=== PATIENT | female | born 1975 | race Caucasian/White ===

== ENCOUNTER 2023-02-18 22:49 | Observation (INO) | payer OTHER, SELFPAY ==
[2023-02-18 22:58] VITALS: BP 145/86; PULSE 83; RESP 16; TEMP 36.7; O2SAT 99; BMI 29.0
[2023-02-18 22:59] VITALS: BP 145/86; PULSE 88; RESP 17
--- NOTE | 2023-02-18 23:17 | ED_ITS ---
HPI - Chest Pain General Chief Complaint: Chest Pain Stated Complaint: CHEST PAIN Time Seen by Provider: 02/18/23 23:11 History of Present Illness HPI narrative: recurrent chest pain, burning pain that does not feel like heart burn, since thursday. Thursday she thought she was having a heart attack but did not seek care. Today recurrent episodes of chest pain alone with dyspnea and nausea. No fever or abdominal pain MD complaint: Reports chest pain Risk Factors Coronary artery disease risk factors: smoking history Related Data Home Medications Medication Instructions Recorded Confirmed etodolac 400 mg tablet 400 mg PO DAILY 02/19/23 02/19/23 milnacipran 25 mg tablet (Savella) 25 mg PO BID 02/19/23 02/19/23 naltrexone 50 mg tablet 4.5 mg PO DAILY 02/19/23 02/19/23 nifedipine 60 mg tablet,extended 60 mg PO DAILY 02/19/23 02/19/23 release Allergies Allergy/AdvReac Type Severity Reaction Status Date / Time codeine Allergy tremors Verified 02/18/23 23:02 Review of Systems ROS Status of ROS 10 or more systems reviewed and unremarkable except as noted in history and below Cardiovascular Reports: chest pain Respiratory Reports: shortness of breath PFSH PFSH Social History Smoking status: Current every day smoker Exam Constitutional Vital Signs, click to edit/add: Last Vital Signs Temp 98.1 F 02/18/23 22:58 Pulse 85 02/19/23 02:00 Resp 22 02/19/23 02:00 BP 109/80 H 02/18/23 23:51 Pulse Ox 99 02/19/23 02:00 Common normals: average body habitus, oriented x3, no limitations and healthy appearing [facility] Common normals: normocephalic and head/scalp atraumatic Eye Common normals: PERRL, EOMs intact bilaterally and conjunctivae normal Respiratory Common normals: normal respiratory effort, no retractions, no use of accessory muscles and clear to auscultation bilaterally Cardio Common normals: regular rate, regular rhythm, S1 normal heart sound and S2 normal heart sound GI Common normals: Normal to inspection, nondistended, normoactive bowel sounds present, soft to palpation and non-tender Extremity Common normals: normal to inspection and full ROM Neuro Common normals: oriented x3, CN's II-XII intact bilaterally, moves all extremities and no focal motor deficits Psych Appearance: grossly normal Course Vital Signs Vital signs: Vital Signs Temperature 98.1 F 02/18/23 22:58 Pulse Rate 83 02/18/23 22:58 Respiratory Rate 16 02/18/23 22:58 Blood Pressure 145/86 H 02/18/23 22:58 Pulse Oximetry 99 02/18/23 22:58 Temperature 98.1 F 02/18/23 22:58 Pulse Rate 85 02/19/23 02:00 Respiratory Rate 22 02/19/23 02:00 Blood Pressure 109/80 H 02/18/23 23:51 Pulse Oximetry 99 02/19/23 02:00 MDM - Chest Pain MDM Narrative Medical decision making narrative: patient presents with recurrent chest pain associated with dyspnea and nausea for past 3 days. Daily smoker. No fever or cough. Workup in the department includes neg troponin, normal cxray and EKG without acute changes. Discussed with the hospitalist and she would like a 2nd troponin before the patient is ac cepted for admission Lab Data Labs: Lab Results 02/18/23 02/19/23 Range/Units 23:33 01:52 WBC 9.6 (4.0-11.0) 10^3/uL RBC 4.11 L (4.20-5.40) 10^6/uL Hgb 13.3 (12.0-16.0) g/dL Hct 39.1 (36.0-48.0) % MCV 95.1 (81.0-99.0) fL MCH 32.4 (26.7-34.0) pg MCHC 34.0 (29.9-35.2) g/dL RDW 11.9 (11.0-15.0) % Plt Count 209 (150-450) 10^3/uL MPV 10.8 (9.5-13.5) fL Neut % (Auto) 45.2 (43.0-75.0) % Lymph % (Auto) 43.8 (20.5-60.0) % [place] % (Auto) 8.1 (1.7-12.0) % Eos % (Auto) 1.9 (0.9-7.0) % Baso % (Auto) 0.5 (0.2-2.0) % Neut # (Auto) 4.3 (1.4-6.5) 10^3/uL Lymph # (Auto) 4.2 H (1.2-3.8) 10^3/uL [place] # (Auto) 0.8 (0.3-0.8) 10^3/uL Eos # (Auto) 0.2 (0.0-0.7) 10^3/uL Baso # (Auto) 0.1 (0.0-0.1) 10^3/uL Abs Immat Gran (auto) 0.05 H (0.00-0.03) 10^3/uL Imm/Tot Granulo (auto) 0.5 (0.0-0.5) % D-Dimer <0.19 (<=0.59) mg/L FEU Sodium 142 (136-145) mmol/L Potassium 3.3 L (3.5-5.1) mmol/L Chloride 108 H (98-107) mmol/L Carbon Dioxide 26.2 (21.0-32.0) mmol/L Anion Gap 11.1 BUN 11.0 (7.0-18.0) mg/dL Creatinine 0.98 (0.55-1.02) mg/dL Est GFR ( Amer) >60 (>=60) Est GFR (Non-Af Amer) >60 (>=60) BUN/Creatinine Ratio 11.2 Glucose 93 (74-106) mg/dL Calcium 8.7 (8.5-10.1) mg/dL Total Bilirubin 0.2 (0.2-1.0) mg/dL AST 24 (15-37) U/L ALT 39 (14-59) U/L Alkaline Phosphatase 75 (46-116) U/L Troponin I High Sens <4.0 L <4.0 L (4.0-51.3) pg/mL NT-Pro-B Natriuret Pep 62.0 (<=450.0) pg/mL Total Protein 6.5 (6.4-8.2) g/dL Albumin 3.6 (3.4-5.0) g/dL Globulin 2.9 g/dL Albumin/Globulin Ratio 1.2 Lipase 151.0 (73.0-393.0) U/L Discharge Plan Discharge Chief Complaint: Chest Pain Clinical Impression: Chest pain Patient Disposition: Admitted as Observation
--- NOTE | 2023-02-18 23:20 | XR_ITS ---
The [address] [address] Patient Name: LISBETH RAO MRN: [id number] date: 1975 Sex: F Assigned Patient Location: ER Current Patient Location: ER Accession/Order Number: [id number] Exam Date: 02/18/2023 23:40 Report Date: 02/18/2023 23:55 At the request of: ADIEL BOWER Procedure: XR chest 1V EXAMINATION:XR chest 1V INDICATION:chest pain COMPARISON:05/22/2017 TECHNIQUE:A single frontal view of the chest is submitted. FINDINGS: The cardiomediastinal silhouette is not enlarged. The pulmonary vascularity is within normal limits. The lungs are clear based on chest radiography. There is no costophrenic angle blunting. XR/XR chest 1V IMPRESSION: Unremarkable plain film examination of the chest. Electronically authenticated by: BRITTANEY ESCOTO Date: 02/18/2023 23:55
--- NOTE | 2023-02-18 23:20 | ECG_ITS ---
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
[2023-02-18 23:47] LABS: Basophils Absolute Auto 0.1 10^3/uL (0.0-0.1); Basophils Percent Auto 0.5 % (0.2-2.0); Eosinophils Absolute Auto 0.2 10^3/uL (0.0-0.7); Eosinophils Percent Auto 1.9 % (0.9-7.0); Hematocrit 39.1 % (36.0-48.0); Hemoglobin 13.3 g/dL (12.0-16.0); Immature Granulocytes Abs Auto 0.05 10^3/uL (0.00-0.03); Immature Granulocytes Pct Auto 0.5 % (0.0-0.5); Lymphocytes Absolute Auto 4.2 10^3/uL (1.2-3.8); Lymphocytes Percent Auto 43.8 % (20.5-60.0); Mean Corpuscular Hemoglobin 32.4 pg (26.7-34.0); Mean Corpuscular Volume 95.1 fL (81.0-99.0); Mean Platelet Volume 10.8 fL (9.5-13.5); Monocytes Absolute Auto 0.8 10^3/uL (0.3-0.8); Monocytes Percent Auto 8.1 % (1.7-12.0); Neutrophils Absolute Auto 4.3 10^3/uL (1.4-6.5); Neutrophils Percent Auto 45.2 % (43.0-75.0); Platelet Count 209 10^3/uL (150-450); Red Blood Count 4.11 10^6/uL (4.20-5.40); Red Cell Distribution Width 11.9 % (11.0-15.0); White Blood Count 9.6 10^3/uL (4.0-11.0)
[2023-02-18 23:51] VITALS: BP 109/80; PULSE 80; PULSE 92; RESP 17; RESP 18; RESP 23; TEMP 36.2; O2SAT 100
--- NOTE | 2023-02-18 23:59 | PC.NURSE ---
0: patient states since Thursday she has had intermittent chest pain that feels like pressure across her entire upper chest and radiates into her right and left upper extremities. states the pain comes and goes, when it starts it is severe and she becomes short of breath with pain. states she has had a few episodes of nausea with the pain but is not nauseous at this time. states on Thursday the severe pain lasted 4hours and she thought she was having a heart attack states she was not seen in any ER or by her PCP for this and states eventually the pain seemed to ease up on its own. denies any cardiac history, denies any similar episodes in past.
[2023-02-19] VITALS (24 sets, daily range): BP systolic 114–157; BP diastolic 72–93; PULSE 61–99; RESP 7–132; O2SAT 96–99; BMI 29.0
[2023-02-19 00:03] LABS: D Dimer <0.19 mg/L FEU (<=0.59)
[2023-02-19 00:12] LABS: Alanine Aminotransferase 39 U/L (14-59); Albumin Globulin Ratio 1.2; Albumin Level 3.6 g/dL (3.4-5.0); Alkaline Phosphatase 75 U/L (46-116); Anion Gap 11.1; Aspartate Amino Transferase 24 U/L (15-37); BUN Creatinine Ratio 11.2; Bilirubin Total 0.2 mg/dL (0.2-1.0); Calcium 8.7 mg/dL (8.5-10.1); Carbon Dioxide 26.2 mmol/L (21.0-32.0); Chloride 108 mmol/L (98-107); Estimated GFR (African America >60 (>=60); Estimated GFR (Non-African Ame >60 (>=60); Globulin 2.9 g/dL; Glucose 93 mg/dL (74-106); Potassium 3.3 mmol/L (3.5-5.1); Sodium 142 mmol/L (136-145); Total Protein 6.5 g/dL (6.4-8.2); Troponin I High Sensitivity <4.0 pg/mL (4.0-51.3)
[2023-02-19] MEDS: POTASSIUM CHLORIDE 10 MEQ ER TABLET 40 MEQ PO (00:45)
[2023-02-19 02:14] LABS: Troponin I High Sensitivity <4.0 pg/mL (4.0-51.3)
--- NOTE | 2023-02-19 04:03 | W.PM.TELEPN ---
Progress Note: Subjective Subjective Interval history: The patient is a 47-year-old female who was in her usual state of health until several days ago when she started developing shortness of breath and dizziness. She had chest pain on Thursday which was 9 out of 10 in intensity and lasted approximately 4 hours. She laid down. She took her hydroxyzine which she takes for anxiety and fell asleep. She felt better when she woke up. Over the next few days, her chest felt more sore. She has not had a stress test in over 10 years. She denies any new medications or any sick contacts. She presented to the ED and had 2 negative cardiac enzymes. She is being admitted for chest pain protocol. Exam Narrative Exam Narrative: General : Alert and oriented x3 HEENT : Extraocular movements intact, pupils equal round and reactive to light and accommodation Neck: Supple, no JVD Chest: Clear to auscultation bilaterally, no wheezes Heart: Regular rate and rhythm, S1 and S2 heard, musculoskeletal tenderness Abdomen: Soft nontender nondistended. Extremities: No clubbing cyanosis or edema Neurologically: Moving all 4 extremities Skin: No rashes Constitutional Vital Signs, click to edit/add: Last Vital Signs Temp 97.2 F L 02/18/23 23:51 Pulse 80 02/19/23 03:14 Resp 18 02/19/23 02:36 BP 141/90 H 02/19/23 02:36 Pulse Ox 99 02/19/23 02:00 O2 Del Method Room Air 02/19/23 03:00 Progress Note: Objective Labs Labs: Short CBC 02/18/23 Range/Units 23:33 WBC 9.6 (4.0-11.0) 10^3/uL Hgb 13.3 (12.0-16.0) g/dL Hct 39.1 (36.0-48.0) % Plt Count 209 (150-450) 10^3/uL BMP 02/18/23 23:33 Sodium 142 Potassium 3.3 L Chloride 108 H Carbon Dioxide 26.2 BUN 11.0 Creatinine 0.98 Glucose 93 Calcium 8.7 Liver Function 02/18/23 Range/Units 23:33 Total Bilirubin 0.2 (0.2-1.0) mg/dL AST 24 (15-37) U/L ALT 39 (14-59) U/L Alkaline Phosphatase 75 (46-116) U/L Albumin 3.6 (3.4-5.0) g/dL Progress Note: A&P Assessment and Plan (1) Chest pain: Assessment and Plan: The patient is a 47-year-old female, presenting with atypical chest pain. Atypical chest pain -Provide supportive care -2 cardiac enzymes negative -Start aspirin -Nitroglycerin as needed -Tums and Maalox as needed -Monitor on telemetry -Hold nifedipine for stress test - NPO, day physician to order stress test Nicotine dependence -Provide nicotine patch DVT Prophylaxis -Lovenox, SCDs Medication review -Medication reconciliation form completed Goals of care -Full code Communications -Discussed with the emergency room physician -Discussed with the bedside nurse -Patient updated of plan of care, all questions answered to their satisfaction Disposition -Home when medically stable Telemedicine clause -As the provider of this telehealth evaluation, requested by the patient's evaluating physician, I attest that I introduced myself to the patient, provided my credentials and determined that telemedicine via a real-time, two-way interactive audio and video platform is an appropriate and effective means of providing this service. -I reviewed the patient's chart and had a discussion with the member of the patient's treatment team. -The patient and I mutually agreed with continuation of this evaluation via telemedicine. The patient consented for the telemedicine evaluation. -This virtual encounter was taken place from [place], [place]. The encounter was approximately 35 minutes. The nurse was present during the entire time of the encounter and was able to remove the stethoscope and appropriate directions. The patient was evaluated at [facility] Telemedicine Attestation Telemedicine Attestation I conducted this encounter from [facility] via secure live, [id number] video conference with the patient, located at [facility] with nurse. Prior to the interview, the risks and benefits of telemedicine were discussed with the patient and verbal consent was obtained.
[2023-02-19 05:22] LABS: Basophils Absolute Auto 0.1 10^3/uL (0.0-0.1); Basophils Percent Auto 0.8 % (0.2-2.0); Eosinophils Absolute Auto 0.2 10^3/uL (0.0-0.7); Eosinophils Percent Auto 2.2 % (0.9-7.0); Hematocrit 38.2 % (36.0-48.0); Hemoglobin 12.5 g/dL (12.0-16.0); Immature Granulocytes Abs Auto 0.04 10^3/uL (0.00-0.03); Immature Granulocytes Pct Auto 0.5 % (0.0-0.5); Lymphocytes Absolute Auto 4.1 10^3/uL (1.2-3.8); Lymphocytes Percent Auto 52.9 % (20.5-60.0); Mean Corpuscular HGB Conc 32.7 g/dL (29.9-35.2); Mean Corpuscular Hemoglobin 31.6 pg (26.7-34.0); Mean Corpuscular Volume 96.5 fL (81.0-99.0); Mean Platelet Volume 11.3 fL (9.5-13.5); Monocytes Absolute Auto 0.6 10^3/uL (0.3-0.8); Monocytes Percent Auto 7.8 % (1.7-12.0); Neutrophils Absolute Auto 2.7 10^3/uL (1.4-6.5); Neutrophils Percent Auto 35.8 % (43.0-75.0); Platelet Count 205 10^3/uL (150-450); Red Blood Count 3.96 10^6/uL (4.20-5.40); Red Cell Distribution Width 11.9 % (11.0-15.0); White Blood Count 7.7 10^3/uL (4.0-11.0)
[2023-02-19 05:39] LABS: Anion Gap 11.8; BUN Creatinine Ratio 13.4; Calcium 8.7 mg/dL (8.5-10.1); Carbon Dioxide 26.9 mmol/L (21.0-32.0); Chloride 108 mmol/L (98-107); Estimated GFR (African America >60 (>=60); Estimated GFR (Non-African Ame >60 (>=60); Glucose 115 mg/dL (74-106); Magnesium 2.1 mg/dL (1.8-2.4); Potassium 3.7 mmol/L (3.5-5.1); Sodium 143 mmol/L (136-145)
[2023-02-19 05:46] LABS: Chol HDL Ratio 5.4; Cholesterol 177 mg/dL (<=200); HDL Cholesterol 33 mg/dL (40-60); Triglycerides 156 mg/dL (<=150); VLDL CHOLESTEROL 31.2 mg/dL
--- NOTE | 2023-02-19 08:57 | OP_ITS ---
CARDIAC STRESS TEST ? Requesting Physician:? Procedure Date:? 02/19/23 ? ? PROCEDURE: This is a Lexiscan stress test. ? REASON FOR STRESS TEST:? To evaluate a patient with chest pain. ? CARDIAC HISTORY:? This is a 47-year-old with no personal history of coronary disease.? She has a strong family history with father having coronary artery bypass grafting at the age of 50. ? PRIMARY RISK FACTORS:? Include essential hypertension. ? RESTING 12 LEAD ELECTROCARDIOGRAM:? Reveals sinus rhythm with a ventricular rate of 65 beats per minute.? The ID interval, QRS interval and QT interval were all within normal limits.? There are no pathologic Q-waves.? There is slight intraventricular conduction delay with non-specific ST-T wave changes. ? STRESS TEST: A.? Protocol:? Lexiscan protocol was followed. B.? Exercise capacity is not applicable for this procedure. C.? Heart rate and blood pressure response:? The heart rate increased with a decrease in blood pressure, which is appropriate for Lexiscan infusion. D.? EKG:? There were no ST-T wave changes during infusion. E.? Patient response:? The patient denied chest pain during infusion. ? IMPRESSION:? There was no objective evidence suspicious for myocardial ischemia during infusion.? Cardiolite was injected with Cardiolite images and interpretation pending. [facility]
--- NOTE | 2023-02-19 08:59 | CA_ITS ---
Patient: LISBETH RAO Exam Date: 02/19/2023 : 1975 Gender:F Ordering : DR DEENA LAGUNAS . Admission #: [id number] Family : Order #: [id number] CLICK HERE TO VIEW EXAM ECHOCARDIOGRAM REPORT PROCEDURE: CA ECHO DOPPLER COMPLETE INDICATIONS: chest pain COMPARISON: None. DESCRIPTION: COMPLETE ECHOCARDIOGRAM Real-time transthoracic echocardiography with 2D, M-mode, spectral and color flow Doppler performed. QUALITY: Technical quality was good. LEFT VENTRICLE: Normal chamber size. Borderline left ventricular hypertrophy. Global left ventricular systolic function is normal. LV EF: Calculated left ventricular ejection fraction is 58% DIASTOLIC: Normal diastolic function. ATRIAL SEPTUM: Lipomatous hypertrophy of the septum is noted. Intact septum by color Doppler interrogation. LEFT ATRIUM: Normal chamber size. RIGHT ATRIUM: Normal chamber size. RIGHT VENTRICLE: Normal chamber size. Normal right ventricular systolic function. TRICUSPID VALVE: Normal mobility and thickness. No stenosis with trivial regurgitation. No evidence of pulmonary hypertension. RVSP 24 mmHg MITRAL VALVE: Normal mobility and thickness. No evidence of mitral valve stenosis. There is no mitral annular calcification. Trivial mitral regurgitation. AORTIC VALVE: Normal trileaflet appearance. No visible sclerosis. Normal leaflet mobility. No evidence of aortic valve stenosis. No aortic regurgitation. AORTIC ROOT: Normal diameter and appearance. PULMONIC VALVE: Normal thickness and mobility. No stenosis. No regurgitation. PERICARDIUM: No evidence of pericardial effusion. IVC: Collapses with inspirations. Normal size. PLEURA: CONCLUSION: 1. Normal left ventricular systolic function. LVEF is estimated at 55 to 60%. 2. Normal right ventricular systolic function and size. 3. Normal diastolic function. 4. No significant valvular dysfunction. 5. Normal right-sided pressures. 6. No pericardial effusion. Adult Echocardiography Procedure Report Left Ventricle LVEDD (3.7 - 5.6 cm): 4.55 cm LVESD (2.2 - 4.0 cm): 3.04 cm LVIVS thickness (0.6 - 1.2 cm): 1.02 cm LVPW thickness (0.5 - 1.0 cm): 0.89 cm e': 0.12 m/s E - e': 5.09 LVOT Max Gradient: 1.99 mm[Hg] LVOT Area (cm2): 0.71 m/s Peak Velocity (LVOT): 0.71 m/s Mean Velocity (LVOT): 0.53 m/s LVOT Diameter 2.15 cm Left Ventricular Ejection Fraction: 58.20 % Left Atrium LA Volume Index (2D A2C): 18.15 ml/m2 Left Atrium Systolic Dimension: 2.82 cm Mitral Valve MV E to A Ratio: 1.23 Mitral Valve A-Wave Peak Velocity: 0.49 m/s Mitral Valve E-Wave Peak Velocity: 0.60 m/s Right Ventricle RV Internal Diastolic Dimension: 2.39 cm Aorta AO Root Diam: 3.12 cm Ascending Ao Diam: 2.59 cm Aortic Valve AoV Area (Peak Isaiah): 2.82 cm2, 2.82 cm2 AoV Area (VTI): 2.38 cm2, 2.38 cm2 Peak Velocity(Antegrade Flow): 0.91 m/s Peak Gradient(Antegrade Flow): 3.32 mm[Hg] Mean Velocity(Antegrade Flow): 0.65 m/s Mean Gradient(Antegrade Flow): 1.90 mm[Hg] Velocity Time Integral: 23.30 cm Tricuspid Valve Peak Velocity (Regurgitant Flow): 2.30 m/s Pulmonic Valve Mean Gradient: 1.27 mm[Hg], 0.94 mm[Hg] Mean Velocity: 0.53 m/s, 0.46 m/s Peak Velocity: 0.68 m/s Peak Gradient: 2.14 mm[Hg], 1.57 mm[Hg] Right Atrium Right Atrium Systolic Pressure: 28.05 ml, 28.05 ml Dictated by: Ollie Anderson M.D. on 02/19/2023 at 19:16 Approved by: Ollie Anderson M.D. on 02/19/2023 at 19:20
--- NOTE | 2023-02-19 08:59 | PM.HP ---
H&P: HPI History of Present Illness Chief complaint: CHEST PAIN Narrative: Patient presented to the emergency room with recurrence of chest pain. She had been about a week or so ago. This happens with activity and sometimes without activity. Has been progressive. Had some mild shortness of breath last time but the shortness of breath this time is worse. Some nausea no diaphoresis just the shortness of breath and the left-sided chest pressure. Less activity making the symptoms come on. Initial evaluation emergency room was unremarkable, patient admitted for work-up and treatment of chest pain risk factors for coronary artery disease strong family history of young heart disease her father at the age of 52 after complications from his bypass surgery that happened in at the age of 50. She is a smoker. Review of Systems ROS Status of ROS 10 or more systems reviewed and unremarkable except as noted in history and below Constitutional Denies: fever or chills Ears, nose, mouth, and throat Denies: throat pain Cardiovascular Reports: chest pain, shortness of breath with exertion and shortness of breath when lying down Respiratory Reports: shortness of breath; Denies: wheezing Gastrointestinal Denies: abdominal pain, nausea or vomiting Musculoskeletal Denies: back pain 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 Highest level of school completed/degree received: Associate degree: academic program Are you now , , , , never or living with a partner: In a typical week, how many times do you talk on the telephone with family, friends, or neighbors: 3 or more times per week How often do you get together with friends or relatives: twice per week How often do you attend tenriism or amish services: never Do you belong to any clubs or organizations such as tenriism groups unions, fraternal or athletic groups, or school groups: no Total score: 2 Score interpretation: A score of greater than or equal to 2 indicates the lowest level of social isolation. Little interest or pleasure in doing things: several days Feeling down, depressed, or hopeless: several days Feel stressed/tense/nervous/anxious/difficulty sleeping: very much Life stressors: divorce/separation, loss of job and financial matters Do you think of yourself as: straight/heterosexual Gender Identity: female Meds Home Medications and Allergies Home Medications Medication Instructions Recorded Confirmed Type etodolac 400 mg tablet 400 mg PO DAILY 02/19/23 02/19/23 History milnacipran 25 mg tablet (Savella) 25 mg PO BID 02/19/23 02/19/23 History naltrexone 50 mg tablet 4.5 mg PO DAILY 02/19/23 02/19/23 History nifedipine 60 mg tablet,extended 60 mg PO DAILY 02/19/23 02/19/23 History release Allergies Allergy/AdvReac Type Severity Reaction Status Date / Time codeine Allergy tremors Verified 02/18/23 23:02 Exam Constitutional Vital Signs, click to edit/add: Last Vital Signs Temp 97.2 F L 02/18/23 23:51 Pulse 80 02/19/23 03:14 Resp 18 02/19/23 02:36 BP 141/90 H 02/19/23 02:36 Pulse Ox 99 02/19/23 02:00 O2 Del Method Room Air 02/19/23 03:00 Documenting provider has reviewed patient's vital signs: yes Common normals: apparent distress General appearance: not comfortable Chest Common normals: inspection of chest normal Respiratory Common normals: normal respiratory effort, no use of accessory muscles and clear to auscultation bilaterally Effort & inspection: able to speak in complete sentences Cardio Common normals: regular rate, regular rhythm and no murmurs GI Common normals: Normal to inspection, nondistended, normoactive bowel sounds present Results Labs Labs: Short CBC 02/18/23 02/19/23 Range/Units 23:33 04:22 WBC 9.6 7.7 (4.0-11.0) 10^3/uL Hgb 13.3 12.5 (12.0-16.0) g/dL Hct 39.1 38.2 (36.0-48.0) % Plt Count 209 205 (150-450) 10^3/uL BMP 02/18/23 02/19/23 23:33 04:22 Sodium 142 143 Potassium 3.3 L 3.7 Chloride 108 H 108 H Carbon Dioxide 26.2 26.9 BUN 11.0 11.0 Creatinine 0.98 0.82 Glucose 93 115 H Calcium 8.7 8.7 Liver Function 02/18/23 Range/Units 23:33 Total Bilirubin 0.2 (0.2-1.0) mg/dL AST 24 (15-37) U/L ALT 39 (14-59) U/L Alkaline Phosphatase 75 (46-116) U/L Albumin 3.6 (3.4-5.0) g/dL Assessment and Plan Assessment and Plan (1) Chest pain: Plan Chest pain with a strong risk factors for coronary artery disease, patient is a smoker, father at the age of 52 with complications from his bypass surgery that occurred at the age of 49. Symptoms have been progressive. Over the last 7 to 10 days. Increasing dyspnea, less activity creating the shortness of breath and chest pressure. No diaphoresis, no nausea. With high risk for coronary artery disease despite negative troponins, recommend stress testing prior to discharge. Patient started on aspirin. Pending outcome of stress testing patient possible discharge to home versus transfer to tertiary care facility. Medications see list. Follow-up with your PCP within the next week. If discharged
--- NOTE | 2023-02-19 09:27 | NM_ITS ---
Patient: LISBETH RAO Exam Date: 02/19/2023 : 1975 Gender:F Ordering : DR DEENA LAGUNAS . Admission #: [id number] Family : DR JOLENE SCRUGGS D.O. Order #: [id number] CLICK HERE TO VIEW EXAM RADIOLOGY REPORT PROCEDURE: NM GABRIELA PERF SPECT REST STR COMPARISON: None. INDICATIONS: Chest pain TECHNIQUE: Exam Description: Stress/Rest one day protocol gated SPECT Rest Imagin.3 mCi Tc-99m Cardiolite IV on 02/19/2023 Stress Imaging 30.6 mCi Tc-99m Cardiolite IV on 02/19/2023 Exercise Protocol: 0.4 mg Lexiscan given IV Heart Rate (bpm): Rest: 68 Max: 110 PMHR: 63 Blood Pressure: Rest: 130/90 Max: 150/92 Symptoms: Rest and peak stress ECG findings were normal and the exercise portion of the study was normal per attending physician Dr. Jaswinder Mcfarland . For more details please see separate cardiac stress test report. FINDINGS: QUALITY OF STUDY: Excellent. PERFUSION DEFECT: None. LOCATION: Mid-anteroseptal. SIZE: Small (1-2 segments). SEVERITY: Mild. TYPE: Persistent. WALL MOTION: Normal. LV SIZE: Normal. 56 mL. TID / TCD: None; 0.8 LVEF: Normal. Calculated EF 71%. SUMMARY: Myocardial perfusion imaging study has ABNORMAL findings. CONCLUSION: 1. No acute or reversible ischemia. 2. Breast attenuation artifact versus small fixed perfusion defect involving the mid anterior septal wall. 3. Normal wall motion, left ventricle volume, and ejection fraction. Dictated by: Waqar Reed M.D. on 02/19/2023 at 14:55 Approved by: Waqar Reed M.D. on 02/19/2023 at 14:58
[2023-02-19] MEDS: NICOTINE 14 MG PATCH.TD24 TD (10:29)
[2023-02-19] MEDS: ENOXAPARIN SODIUM 40 MG/0.4 ML SYRINGE SUBQ (10:29)
[2023-02-19] MEDS: KETOROLAC TROMETHAMINE 30 MG/ML VIAL IVP (10:37)
[2023-02-19] MEDS: REGADENOSON 0.4 MG/5 ML SYRINGE IV (15:02)
--- NOTE | 2023-02-19 17:50 | CT_ITS ---
[address] [address] Patient Name: LISBETH RAO MRN: [id number] date: 1975 Sex: F Assigned Patient Location: ICU Current Patient Location: ICU Accession/Order Number: [id number] Exam Date: 02/19/2023 17:29 Report Date: 02/19/2023 18:41 At the request of: DEENA LAGUNAS Procedure: CT angio chest EXAM: CT angio chest HISTORY: chest pain , shortness of breath COMPARISON: X-ray chest 06/21/2020. TECHNIQUE: Thin section transaxial slices were acquired through the chest with intravenous contrast per PE protocol. Coronal and sagittal reconstructed images were reviewed. FINDINGS: PULMONARY ARTERIES: There is good opacification of the pulmonary vasculature. No pulmonary arterial filling defects are present. LUNGS/AIRWAYS: There are bibasilar mild atelectasis and scarring. There is mild bronchial wall thickening. There is upper lobe predominant mild centrilobular and paraseptal emphysematous changes. The central airways are patent. PLEURAL CAVITY: No pleural effusion or pneumothorax. HEART/PERICARDIUM: The heart is normal in size. No pericardial effusion. MEDIASTINAL/HILAR LYMPH NODES: No pathologically enlarged lymph nodes. CHEST WALL/AXILLA/LOWER NECK: There is a small low-attenuation nodule in the right upper thyroid gland. VISUALIZED UPPER ABDOMEN: No acute abnormality seen. BONES: No acute process.. CT/CT angio chest IMPRESSION: 1. No evidence of pulmonary embolism. 2. No evidence of pneumonia. 3. Upper lobe predominant mild emphysematous changes. Bibasilar mild atelectasis and scarring. Mild bronchial wall thickening, suggestive of bronchitis. 4. A small low-attenuation nodule in the right upper thyroid gland. Correlation with nonemergent thyroid ultrasound is recommended if clinically warranted. Electronically authenticated by: SABRINA NARAYANU Date: 02/19/2023 18:41
--- NOTE | 2023-02-25 14:33 | CM.DCFOLLOWU ---
3 discharge follow up calls were made, not able to get ahold of patient.
== END 2023-02-19 19:25 | disposition home or self-care (01) ==
LOC: ER 02-19 01:34 → ICU 02-19 02:39
PROVIDERS: Admitting Provider Internal Medicine; Emergency Provider Internal Medicine; PCP Family Medicine; Visit Provider Family Medicine
DX: R07.9 Chest pain, unspecified (principal); F17.210 Nicotine dependence, cigarettes, uncomplicated; Z82.49 Family history of ischemic heart disease and other diseases of the circulatory system; F41.9 Anxiety disorder, unspecified; R06.02 Shortness of breath; Z79.899 Other long term (current) drug therapy
CPT/HCPCS: 36415; 71045; 71275; 78452; 80048; 80053; 80061; 83690; 83735; 83880; 84484; 85025; 85378; 93005; 93017; 93306; 96372; 96374; 96375; 99285; A9500; G0378; J2785; Q3014; Q9967

== ENCOUNTER 2023-08-26 06:51 | Outpatient (OUT) | payer OTHER, SELFPAY ==
--- NOTE | 2023-08-26 06:55 | MR_ITS ---
The [address] [address] Patient Name: LISBETH RAO MRN: [id number] date: 1975 Sex: F Assigned Patient Location: MRI Current Patient Location: MRI Accession/Order Number: [id number] Exam Date: 08/26/2023 07:00 Report Date: 08/26/2023 09:10 At the request of: JOLENE SCRUGGS Procedure: MR shoulder RT wo con EXAM: MR shoulder RT wo con, MR shoulder LT wo con REASON FOR EXAM: Bilateral shoulder pain. TECHNIQUE: Multiplanar, multisequence imaging of the bilateral shoulder was performed without contrast COMPARISON: Prior MRI 07/07/2018. FINDINGS: Right shoulder: The acromioclavicular joint is congruent with mild joint space narrowing capsular hypertrophy. No significant narrowing of supraspinatus outlet. Fluid within the subacromial subdeltoid bursa is nonspecific incidental full-thickness rotator cuff tear. Superimposed on tendinosis, there is full-thickness, fullwidth tear of the supraspinatus tendon with proximal retraction to the humeral dome. The tear propagates into the infraspinatus tendon as intermediate to high-grade near full width partial tearing. The teres minor tendon is intact. The subscapularis tendon is mildly thickened with intermediate signal consistent with tendinosis. No tear. Atrophy of the supraspinatus and infraspinatus muscles. The extracapsular biceps tendon is within the bicipital groove. Intracapsular biceps tendon is normal. The humerus is centered on the glenoid. The glenohumeral articular cartilage demonstrates intermediate grade chondrosis. There is posterior superior labral degeneration versus remote SLAP tear. Small joint effusion. The bone marrow signal is without fracture. The quadrilateral space is patent. No axillary lymphadenopathy. Left shoulder: The acromioclavicular joint is congruent with mild joint space narrowing, capsular hypertrophy and subchondral edema/cystic changes. Inferior marginal osteophytes narrow the supraspinatus outlet. Small amount of fluid is present in the subacromial subdeltoid bursa. There is mild thickening and intermediate signal of the supraspinatus and supraspinatus tendons consistent with tendinosis. Low-grade bursal sided fraying central cuff. No tear identified. The teres minor tendon is intact. The subscapularis tendon is intact. The exit capsular biceps tendon is within the bicipital groove. Intracapsular biceps tendon is normal. The rotator cuff musculature demonstrates symmetric bulk and signal. The humerus is centered on the glenoid. Intermediate grade chondrosis. Posterior superior labral degeneration. No joint effusion. The bone marrow signal is without fracture. The quadrilateral space is patent. No axillary lymphadenopathy. MR/MR shoulder RT wo con IMPRESSION: Right shoulder: 1. Full-thickness, fullwidth tear of the supraspinatus tendon with proximal retraction the level the glenoid. Intermediate to high-grade (greater than 50% thickness) partial-thickness fullwidth tear of the infraspinatus tendon. 2. Intact biceps tendon. 3. [id number] acromioclavicular osteoarthritis. 4. Moderate glenohumeral osteoarthritis with posterior superior labral degeneration versus age-indeterminate SLAP tear Left shoulder: 1. Rotator cuff tendinosis with low-grade bursal sided fraying of the central cuff. No tear. 2. Intact biceps tendon. 3. Moderate acromioclavicular osteoarthritis with mild subacromial/subdeltoid bursitis. 4. Moderate glenohumeral osteoarthritis with posterior superior labral degeneration. Electronically authenticated by: CANDI REDDY Date: 08/26/2023 09:10
--- NOTE | 2023-08-26 06:55 | MR_ITS ---
[address] [address] Patient Name: LISBETH RAO MRN: [id number] date: 1975 Sex: F Assigned Patient Location: MRI Current Patient Location: MRI Accession/Order Number: [id number] Exam Date: 08/26/2023 07:00 Report Date: 08/26/2023 10:06 At the request of: JOLENE SCRUGGS Procedure: MR cervical spine wo con MRI CERVICAL SPINE WITHOUT CONTRAST, 08/26/2023. HISTORY: Neck pain. Shoulder pain. Radiculopathy. COMPARISON: MRI cervical spine without contrast, 10/29/2022. TECHNIQUE: Multiplanar, multisequence MRI imaging of the cervical spine without contrast. FINDINGS: Cervical spine alignment normal. No subluxation. Signal in the bone marrow space is normal. No bone marrow edema. No suspicious osseous lesions. C2-C3, no spinal stenosis. No foraminal narrowing. C3-C4, mild degenerative disc disease is stable. No spinal stenosis or foraminal narrowing. This level is stable. C4-C5, severe degenerative disc disease. Endplate osteophyte complex results in mild spinal stenosis. Uncovertebral osteophytes result in moderate bilateral foraminal narrowing. This level is stable. C5-C6, severe degenerative disc disease. There is mild spinal canal stenosis. Uncovertebral osteophyte on the left results in severe left neural foraminal narrowing which is stable. C6-C7, mild degenerative disc disease. Diffuse disc bulge. No spinal stenosis. No significant foraminal narrowing. This level is stable. C7-T1, no spinal stenosis. No foraminal narrowing. No spinal cord compression. No abnormal signal in the cervical spinal cord. MR/MR cervical spine wo con IMPRESSION: 1. Stable MRI of the cervical spine. 2. Severe degenerative disc disease at C4-C5 and C5-C6. Mild spinal stenosis at these levels. 3. Severe left neural foraminal narrowing at C5-C6 stable. Moderate bilateral foraminal narrowing at C4-C5 stable. 4. No abnormal signal in the cervical spinal cord. Electronically authenticated by: ROMELIA TERRELL Date: 08/26/2023 10:06
--- NOTE | 2023-08-26 06:55 | MR_ITS ---
The [address] [address] Patient Name: LISBETH RAO MRN: [id number] date: 1975 Sex: F Assigned Patient Location: MRI Current Patient Location: MRI Accession/Order Number: [id number] Exam Date: 08/26/2023 07:00 Report Date: 08/26/2023 09:10 At the request of: JOLENE SCRUGGS Procedure: MR shoulder LT wo con EXAM: MR shoulder RT wo con, MR shoulder LT wo con REASON FOR EXAM: Bilateral shoulder pain. TECHNIQUE: Multiplanar, multisequence imaging of the bilateral shoulder was performed without contrast COMPARISON: Prior MRI 07/07/2018. FINDINGS: Right shoulder: The acromioclavicular joint is congruent with mild joint space narrowing capsular hypertrophy. No significant narrowing of supraspinatus outlet. Fluid within the subacromial subdeltoid bursa is nonspecific incidental full-thickness rotator cuff tear. Superimposed on tendinosis, there is full-thickness, fullwidth tear of the supraspinatus tendon with proximal retraction to the humeral dome. The tear propagates into the infraspinatus tendon as intermediate to high-grade near full width partial tearing. The teres minor tendon is intact. The subscapularis tendon is mildly thickened with intermediate signal consistent with tendinosis. No tear. Atrophy of the supraspinatus and infraspinatus muscles. The extracapsular biceps tendon is within the bicipital groove. Intracapsular biceps tendon is normal. The humerus is centered on the glenoid. The glenohumeral articular cartilage demonstrates intermediate grade chondrosis. There is posterior superior labral degeneration versus remote SLAP tear. Small joint effusion. The bone marrow signal is without fracture. The quadrilateral space is patent. No axillary lymphadenopathy. Left shoulder: The acromioclavicular joint is congruent with mild joint space narrowing, capsular hypertrophy and subchondral edema/cystic changes. Inferior marginal osteophytes narrow the supraspinatus outlet. Small amount of fluid is present in the subacromial subdeltoid bursa. There is mild thickening and intermediate signal of the supraspinatus and supraspinatus tendons consistent with tendinosis. Low-grade bursal sided fraying central cuff. No tear identified. The teres minor tendon is intact. The subscapularis tendon is intact. The exit capsular biceps tendon is within the bicipital groove. Intracapsular biceps tendon is normal. The rotator cuff musculature demonstrates symmetric bulk and signal. The humerus is centered on the glenoid. Intermediate grade chondrosis. Posterior superior labral degeneration. No joint effusion. The bone marrow signal is without fracture. The quadrilateral space is patent. No axillary lymphadenopathy. MR/MR shoulder LT wo con IMPRESSION: Right shoulder: 1. Full-thickness, fullwidth tear of the supraspinatus tendon with proximal retraction the level the glenoid. Intermediate to high-grade (greater than 50% thickness) partial-thickness fullwidth tear of the infraspinatus tendon. 2. Intact biceps tendon. 3. [id number] acromioclavicular osteoarthritis. 4. Moderate glenohumeral osteoarthritis with posterior superior labral degeneration versus age-indeterminate SLAP tear Left shoulder: 1. Rotator cuff tendinosis with low-grade bursal sided fraying of the central cuff. No tear. 2. Intact biceps tendon. 3. Moderate acromioclavicular osteoarthritis with mild subacromial/subdeltoid bursitis. 4. Moderate glenohumeral osteoarthritis with posterior superior labral degeneration. Electronically authenticated by: CANDI REDDY Date: 08/26/2023 09:10
== END 2023-08-26 06:52 | disposition home or self-care (01) ==
LOC: MRI 06:51
PROVIDERS: PCP Family Medicine; Visit Provider Family Medicine
DX: M25.511 Pain in right shoulder (principal); M50.20 Other cervical disc displacement, unspecified cervical region; M25.512 Pain in left shoulder; M50.30 Other cervical disc degeneration, unspecified cervical region; M75.121 Complete rotator cuff tear or rupture of right shoulder, not specified as traumatic
CPT/HCPCS: 72141; 73221

== ENCOUNTER 2023-10-28 09:01 | Outpatient (OUT) | payer OTHER, SELFPAY ==
--- OUTSIDE RECORDS SUMMARY | 2023-10-28 09:21 | XMS_ITS | CCD ---
Author Organization [facility] Care Team Providers Care Cancer Registry Coordinator Name Role Phone Patsy Negrete Unavailable SCRUGGS, DR JASON Falcon Admitting Unavailable SCRUGGS, DR JASON Falcon Attending Unavailable SCRUGGS, DR JASON Falcon Primary Care Unavailable WEST, DR ALEXA Rodriguez Consulting Unavailable SCRUGGS, DR JASON Falcon Consulting Unavailable SCRUGGS, DR JASON Falcon Admitting Unavailable SCRUGGS, DR JASON Falcon Attending Unavailable SCRUGGS, DR JASON Falcon Primary Care Unavailable SCRUGGS, DR JASON Falcon Consulting Unavailable ZIEBER, DR PETE Saab Consulting Unavailable Scruggs DOJason Primary Care Provider DEBI CLAYTON Attending Unavailable JASON SCRUGGS Referring Unavailable JASON SCRUGGS Primary Care Unavailable DEBI CLAYTON Referring Unavailable SCRUGGSJASON Primary Care Unavailable Allergies Allergy Classification Reported Allergen(s) Allergy Type Date of Onset Reaction(s) Facility (2 sources) Codeine; Translations: [CODEINE] Drug Allergy 3 [facility] Repository (2 sources) Codeine Drug Allergy 9 Other (See Comments) [facility] Work Phone: Medications Current Medications Medication Drug Class(es) Dates Sig (Normalized) Sig (Original) acetaminophen 300 mg / butalbital 50 mg / caffeine 40 mg oral capsule (2 sources) Barbiturate, Central Nervous System Stimulant, Methylxanthine take 1 capsule by mouth three times daily for headache butalbital-acetamin ophen-caff (FIORICET, ESGIC) 50-300-40 mg per capsule butalbital-acetamin ophen-caffeine 50 mg-300 mg-40 mg capsule take 1 capsule by mouth three times a day if needed for headache 0 Active amoxicillin 875 mg oral tablet (1 source) Penicillin-class Antibacterial Start: 10-18-2020 take 1 tablet by mouth every twelve hours Amoxicillin 875 MG 1 tablet Orally every 12 hrs for 7 days Oct, Active Ryzbpwdeil-RJNE-Dulm eine (1 source) Butalbital-APAP- Caf feine Active cyclobenzaprine hydrochloride 10 mg oral tablet (3 sources) Muscle Relaxant take 1 tablet by mouth three times daily as needed for muscle spasms cyclobenzaprine (FLEXERIL) 10 mg tablet Take 1 tablet (10 mg total) by mouth 3 (three) times a day as needed for muscle spasms. 0 Active Cyclobenzaprine HCl Active ergocalciferol 1.25 mg oral capsule (1 source) Provitamin D2 Compound Start: 08-07-2023 take 1 capsule by mouth every week ergocalciferol (DRISDOL) 1,250 mcg (50,000 unit) capsule take 1 capsule by mouth every week 0 08/07/2023 Active esomeprazole 40 mg delayed release oral capsule (2 sources) Proton Pump Inhibitor esomeprazole (NexIUM) 40 mg capsule esomeprazole magnesium 40 mg capsule,delayed release 0 Active etodolac 400 mg oral tablet (3 sources) Nonsteroidal Anti-inflammatory Drug take 1 tablet by mouth in the morning, then take 1 tablet by mouth at bedtime etodolac (LODINE) 400 mg tablet Take 1 tablet (400 mg total) by mouth in the morning and 1 tablet (400 mg total) before bedtime. 0 Active Etodolac Active milnacipran hydrochloride 50 mg oral tablet (3 sources) Serotonin and Norepinephrine Reuptake Inhibitor take 1 tablet by mouth in the morning, then take 1 tablet by mouth at bedtime milnacipran (SAVELLA) 50 mg tablet Take 1 tablet (50 mg total) by mouth in the morning and 1 tablet (50 mg total) before bedtime. 0 Active Savella Active NIFEdipine 60 mg osmotic 24 hr extended release oral tablet (2 sources) Dihydropyridine Calcium Channel Fay NIFEdipine XL (PROCARDIA XL) 60 mg 24 hr tablet Take 100 mg by mouth in the morning and at bedtime. Only taking 50 0 Active NIFEdipine ER Osmotic Release (1 source) NIFEdipine ER Osmotic Release Active OXcarbazepine 150 mg oral tablet (1 source) Anti-epileptic Agent Start: 024 OXcarbazepine (TRILEPTAL) 150 mg tablet Indications: Cervical radiculopathy , Degenerative disc disease, cervical Take 1 tablet (150 mg) twice daily for 2 weeks, then increase to 2 tablets (300 mg) twice daily 120 tablet 3 10/21/2023 Active pregabalin 50 mg oral capsule (1 source) Start: 023 take 1 capsule by mouth once daily pregabalin (LYRICA) 50 mg capsule take 1 capsule by mouth once daily if needed 0 07/15/2023 Active Verapamil (1 source) Calcium Channel Fay Verapami l HCl ER Active Completed/Discontinued Medications Medication Drug Class(es) Dates Sig (Normalized) Sig (Original) busPIRone hydrochloride 15 mg oral tablet (4 sources) Start: 12-24-2018 End: 10-21-2023 take 0.4023884821333893 tablet by mouth twice daily busPIRone (BUSPAR) 15 mg tablet take 1/3 tablet by mouth twice a day 0 12/24/2018 10/21/2023 Discontinued End: 10-21-2023 take 0.5 tablet by mouth twice daily busPIRone (BUSPAR) 10 mg tablet buspirone 10 mg tablet AND 1/2 TABLET BY MOUTH TWICE A DAY 0 10/21/2023 Discontinued naltrexone hydrochloride 50 mg oral tablet (2 sources) Opioid Antagonist Start: 10-29-2022 End: 10-21-2023 take 1.5 mg by mouth once daily, then take 3 tablets by mouth once daily, then take 4.5 tablets by mouth once daily naltrexone (REVIA) 50 mg tablet Indications: Fibromyalgia Take 1.5 mg once daily for 7 days by mouth Take 3 mgonce daily for 7 days by mouth Take 4.5 mgonce daily for two weeks by mouth 28 tablet 0 10/29/2022 10/21/2023 Discontinued Temazepam (1 source) Benzodiazepine Temazepam Not-Taking Problems Active Problems Problem Classification Problem Date Documented Date Episodic/Chronic Headache; including migraine (3 sources) Refractory migraine without aura; Translations: [Chronic migraine without aura, intractable, with status migrainosus] Onset: 12-08-2018 12-08-2018 Chronic Other connective tissue disease (1 source) Rotator cuff arthropathy of right shoulder; Translations: [Unspecified rotator cuff tear or rupture of right shoulder, not specified as traumatic] 10-22-2023 Episodic Spondylosis; intervertebral disc disorders; other back problems (6 sources) Displacement of cervical intervertebral disc; Translations: [Other cervical disc displacement, unspecified cervical region] Onset: 11-15-2018 01-05-2019 Chronic Spondylosis; intervertebral disc disorders; other back problems (6 sources) Radiculopathy, cervical region; Translations: [Cervical radiculopathy] Onset: 10-29-2022 Episodic Past or Other Problems Problem Classification Problem Date Documented Da te Episodic/Chronic Immunizations and screening for infectious disease (1 source) Encounter for screening for other viral diseases Onset: 07-03-2021 Resolved: 07-03-2021 Episodic Mood disorders (1 source) Mood disorders Onset: 10-21-2023 10-21-2023 Other screening for suspected conditions (not mental disorders or infectious disease) (4 sources) Encounter for screening mammogram for malignant neoplasm of breast; Translations: [ENC SCR MAMMO MALIG NEOPLASM BREAST] Onset: 12-18-2021 Episodic Residual codes; unclassified (1 source) Family history of malignant neoplasm of breast; Translations: [FAMILY HX MALIG NEOPLASM OF BREAST] Onset: 12-20-2021 Episodic Residual codes; unclassified (1 source) Family history of malignant neoplasm of trachea, bronchus and lung; Translations: [FAM HX MALIG NEOPLSM TRACH BRON LNG] Onset: 12-20-2021 Episodic Residual codes; unclassified (1 source) Family history of malignant neoplasm of other genital organs; Translations: [FAM HX MALIG NEOPLSM OTH GENIT ORGN] Onset: 12-20-2021 Episodic Results Test Name Value Interpretation Reference Range Facil ity MRI CSPINE WO CONon 10-30-19 MRI CSPINE WO CON EXAMINATION: MRI CSPINE WO CON HISTORY: Cervical radiculopathy , acute bilateral arm pain COMPARISON: MRI C-spine 07/07/2018 TECHNIQUE: A variety of imaging planes and parameters were utilized for visualization of suspected pathology. FINDINGS: CRANIOCERVICAL AREA: Normal foramen magnum with no Chiari malformation. PARASPINAL AREA: Normal with no visible mass. BONES: No fracture, pars defect, or osseous lesion. CORD: Normal caliber, contour, and signal intensity. CERVICAL DISC LEVELS: C2-C3: No significant disc/facet abnormality, spinal stenosis, or foraminal stenosis. C3-C4: Mild central canal and bilateral foramen narrowing. Mild diffuse disc bulging without disc height reduction. No significant facet arthropathy. C4-C5: Moderate central canal and moderate-marked bilateral foramen narrowing. Moderate diffuse disc bulging, slightly greater to the right paracentral/foramen. Moderate disc height reduction and mild bilateral facet arthropathy. C5-C6: Moderate central canal narrowing. Moderate right, marked left foramen narrowing. Moderate diffuse disc bulging with broad-based left paracentral and foramen protrusion. Moderate disc height reduction. Mild degenerative facet arthropathy, left greater than right. C6-C7: Mild-moderate central canal narrowing. Moderate right, moderate-marked left foramen narrowing. Moderate diffuse disc bulging, mild disc height reduction, and mild degenerative facet arthropathy. C7-T1:. Early degenerative disc disease is present without focal protrusion or neural impingement. IMPRESSION: 1. Moderate central canal and moderate-marked foramen narrowing at C4-5, C5-6, with marked narrowing of the C5-6 left foramen. 2. Multilevel moderate diffuse disc bulging and mild degenerative facet arthropathy. 3. Today's evaluation is limited by patient motion artifact. There appears to be slight progression compared to prior study. Electronically authenticated by: PETE COPE Date: 2022-10-29 09:18 Normal [facility] MAMM SCREEN 3D ANISH CADon 12-18-2021 MG MAMM SCREEN 3D ANISH CAD Patient: LISBETH SÁNCHEZ Exam Date: 12/18/2021 : 1975 Gender:F Ordering : DR JASON SCRUGGS DJessiOJessi Admission #: [id number] Family : Order #: [id number] CLICK HERE TO VIEW EXAM RADIOLOGY REPORT PROCEDURE: MAMMOGRAM SCREENING 3D BILATERAL CAD COMPARISON: MG MAMM SCREEN ANISH W CAD, 07/19/2019. INDICATIONS: Screening mammography Calculator Name NCI Breast Cancer Risk Assessment Tool 5 Year Breast Cancer Risk 0.80% Lifetime Breast Cancer Risk 8.40% Personal Breast Cancer No Personal Ovarian Cancer No Treatments None Family Cancers Aunt-paternal with breast cancer at age 50; Aunt-maternal with colon,uterine cancer at age 45; Cousin-maternal with colon,uterine cancer at age 50. LOCATION: [facility] BREAST COMPOSITION: Heterogeneously dense,which may obscure small masses. FINDINGS: DIAGNOSTIC CATEGORY 2--BENIGN FINDING. NO CHANGE FROM COMPARISON. Scattered benign-appearing nodules are present. Scattered benign-appearing calcifications are present. Scattered benign-appearing lymph nodes are present. RIGHT BREAST: No significant suspicious finding. LEFT BREAST: No significant suspicious finding. RECOMMENDATIONS: ROUTINE MAMMOGRAM AND CLINICAL EVALUATION IN 12 MONTHS. PLEASE NOTE: A NORMAL MAMMOGRAM DOES NOT EXCLUDE THE POSSIBILITY OF BREAST CANCER. A CLINICALLY SUSPICIOUS PALPABLE LUMP SHOULD BE BIOPSIED. Dictated by: Alexa Harris MD on 12/18/2021 at 14:00 Approved by: Alexa Harris MD on 12/18/2021 at 14:31 Normal [facility] COVID Quick Testingon 2020 Result Negative [employer] Other Vital Signs Date Time Vital Sign Value Performing Clinician Narinder vasquez 10-21-2023 11:03-0400 Body height 157.5 cm Debi PLATA-C Work Phone: [facility] 10-21-2023 11:03-0400 Body mass index (BMI) [Ratio] 28.83 kg/m2 Debi PLATA-C Work Phone: [facility] 10-21-2023 11:03-0400 Body weight 71.49 kg Debi PLATA-C Work Phone: [facility] 10-21-2023 11:03-0400 Diastolic blood pressure 85 mm[Hg] Debi PLATA-C Work Phone: [facility] 10-21-2023 11:03-0400 Heart rate 101 /min Debi PLATA-C Work Phone: [facility] 10-21-2023 11:03-0400 Systolic blood pressure 167 mm[Hg] Debi PLATA-C Work Phone: [facility] Encounters Encounter Date Encounter Type Care Provider Facility Start: 10-22-2023 ambulatory DEBI Jadon [facility] Start: 10-21-2023 End: 10-21-2023 ambulatory [facility] Start: 10-21-2023 End: 10-21-2023 Office outpatient new 45 minutes Debi Clayton PA-C Work Phone: [facility] Comment on above: Cervical radiculopat hy (Primary Dx); Degenerative disc disease, cervical; Rotator cuff tear arthropathy of right shoulder Start: 10-09-2023 [facility]phone [facility] Start: 10-29-2022 End: 10-30-[address] JASON SCRUGGS Facility:[facility] Start: 12-18-2021 End: 12-19-[address] JASON SCRUGGS Facility:[facility] Start: 07-03-2021 End: 07-03-2021 ambulatory Patsy Negrete Other [employer] Other Start: 07-03-2021 Office outpatient vi sit 5 minutes Patsy Negrete [facility] Procedures Date Procedure Procedure Detail Performing Clinician Start: 10-21-2023 Adult depression screening assessment Debi Clayton PA-C Work Phone: Plan of Treatment Date Care Activity Detail Author Start: 10-20-2024 Adult BMI Screening Adult BMI Screen ing [facility] Start: 10-20-2024 [facility]: 10-20-2024 Tobacco Screening Tobacco Screening [facility] Start: 01-27-2024 End: 01-27-2024 Patient encounter procedure 01/27/2024 1:30 PM EDT Office Visit [facility] [address] [place] [address] Debi Clayton PA-C [address] [facility], [address] [place] [id number] [facility] Start: 11-11-2023 End: 11-11-2023 Patient encounter procedure 11/11/2023 1:45 PM EDT Appointment [facility] [address] [place] [address] Cervical radiculopathy [facility] Comment on above: Cervical radiculopat hy Start: 10-30-2023 Adult BMI Screening Adult BMI Screen ing [facility] Start: 10-30-2023 Tobacco Screening Tobacco Screening [facility] Start: 10-21-2023 End: 10-21-2023 Patient encounter procedure 10/21/2023 11:00 AM EDT [facility] [address] [place] [address] Debi Clayton, PAStefanC [address] [place] [address] [facility] Start: 04-10-2023 COVID-19 Vaccine ( season) COVID-19 Vaccine ( season) [facility] Start: 04-10-2023 Influenza vaccination Influenza Vacc ine [facility] Start: 1993 DTaP,Tdap and Td Vaccines (1 - Tdap) DTaP,Tdap and Td Vaccines (1 - Tdap) [facility] Start: 1992 Adult BMI Follow Up Plan Adult BMI Follow Up Plan [facility] Start: 1986 Depression Screening Depression Scre ening [facility] Start: 1974 Tobacco Counseling Tobacco Counselin g [facility] Immunizations Immunization Date Immunization Notes Care Provider Fa cility 05-09-2021 influenza virus vacc ine, unspecified formulation Shila Son [facility] Payers Date Payer Category Payer Unknown [employer] [id number] 2018-Present [phone] [address] [place] [address] [id number] 1975 Unknown [id number] 1975 Unknown [id number] 1975 Unknown [id number] 1975 Unknown [id number] 1960 Unknown [id number] Social History Date Type Detail Facility Unknown if ever smoked [employer] Other Start: 09-20-2020 End: 10-29-2022 Sex Assigned At [employer] Other Start: 11-15-2018 End: 10-21-2023 Tobacco smoking status NHIS Smokes tobacco daily [facility] History of tobacco use Cigarette Smoker [facility] Start: 11-15-2018 End: 09-20-2020 Cigarettes smoked current (pack per day) - Reported 1 [facility] Start: 11-15-2018 End: 10-21-2023 Tobacco use and exposure Smokeless tobacco non-user [facility] Childcare Unknown [facility] Start: 11-15-2018 Alcohol Comment rare [facility] Start: 1975 Sex Assigned At Not on file [facility] History of Present illness Narrative 10-21-2023 Debi Clayton PA-C - 10/21/2023 11:00 AM EDT Note Date & Type Note Facility 10-21-2023 History of Present illness Narrative [facility] Office Note 10/21/2023 9:04 AM Patient info: Lisbeth Sánchez is a 47 y.o. female Account No.: [id number] Acct: : 1975 PCP: JASON SCRUGGS DO Chief Complaint: Patient, 47 year old female, presents today for initial Neurological evaluation regarding headaches. Referred by Dr. Adrian MORIN Lisbeth is present in the office today by herself. HPI: Lisbeth complains of neck pain, right shoulder pain, and LUE pain from the shoulder down through the elbow. Sxs started a few years ago and have progressively worsened over time. She notably has limited active ROM with the right shoulder. PCP ordered MRI's of each shoulder, as well as the Cervical Spine. 08/26/23 MRI Right Shoulder: Full-thickness, full-width tear of the supraspinatus tendon with proximal retraction at the level of the glenoid. Intermediate to high-grade partial thickness, full-width tear of the infraspinatus tendon. Intact biceps tendon. Tbix-oy-tltidicu acromioclavicular osteoarthritis. Moderate glenohumeral osteoarthritis with posterior superior labral degeneration vs age indeterminate SLAP tear. 08/26/23 MRI Left Shoulder: Rotator cuff tendinosis with low grade bursal side fraying of the central cuff. No tear. Intact biceps tendon. Moderate acromioclavicular osteoarthritis with mild subacromial/subdeltoid bursitis. Moderate glenohumeral osteoarthritis with posterior superior labral degeneration. 08/26/23 Cervical MRI without contrast: C4-C5: Degenerative changes resulting in mild spinal stenosis and moderate bilateral foraminal narrowing C5-C6: Degenerative changes resulting in mild spinal stenosis and severe left foraminal narrowing Previous Studies: No prior Brain Imaging Past Medical Hx: See EMR Social Hx: Tobacco: yes, 1 ppd smoker ETOH: none Illicit substances: none Family Hx: Mother: --- Father: CAD Siblings: --- Surgical Hx: See EMR Allergies: See EMR Review of Systems: Constitutional: Negative for fever, chills, sweats, or unintentional weight loss Eyes: Negative HENT: Negative Cardiovascular: Negative for chest pain and palpitations Respiratory: Negative for cough and shortness of breath Gastrointestinal: Negative for nausea, vomiting, abdominal pain and diarrhea Genitourinary: Negative for dysuria, urgency, frequency, or hematuria Musculoskeletal: - as noted in the HPI, as well as fibromyalgia Skin: Negative for skin rash Neurological: - as noted in the HPI Psychiatric/Behavioral: Negative Endocrine: - hypothyroidism Hem/Onc: Negative Allergy/immunology: Negative The remainder of ROS is negative Vitals: BP: 167/85 HR: 101 Weight: 71.5 kg Physical Exam: General: well groomed, appears stated age Neurological Exam: The patient is awake, alert, and attentive Speech and language are normal Normal affect, with normal orientation and cognition EOMI, PERRL, No gross visual field deficits Face is symmetric, Tongue protrudes midline Palate rises symmetrically with uvula midline Shoulder shrug is strong bilaterally Nose to finger testing is without dysmetria Upper Extremity Drift is (); not tested secondary to right shoulder pain Fine motor skills are approximately equal in each hand Tremor: (-) Sensation is intact and symmetric in the extremities bilaterally DTR's are 1+ throughout, except being 2+ in the LUE May's sign (-) bilaterally Strength throughout the Upper Extremities is 5/5 Strength throughout the Lower Extremities is 5/5 Muscle Tone throughout the extremities is normal Gait is steady with normal base, normal stride and bilateral arm swing ASSESSMENT: Lisbeth is a 47 year old right hand dominant female with a hx of migraine, GERD, hypothyroidism, raynaud's, and fibromyalgia who has a left cervical radiculopathy and a right rotator cuff tear. Pain in distribution of the left shoulder and LUE down to the elbow correlates well with C5 and C6 nerve root irritation. PLAN: Oxcarbazepine 150 mg BID for 2 weeks, then increase to 300 mg BID. Patient has notably experienced adverse effects with Lyrica and Gabapentin in the past. She has also been on Amitriptyline in the past in treatment of Fibromyalgia without any success. Physical Therapy Pain Management for injections Orthopedics regarding the right shoulder Follow up in the office in 2-3 months Electronically Signed by: Debi Clayton PA-C 10/22/23 0901 documented in this encounter [facility] Note 10-09-2023 Telephone Encounter - Shila Son - 10/09/2023 2:34 PM EST Note Date & Type Note Facility 10-09-2023 Miscellaneous Notes Formattin g of this note might be different from the original. Please ask the following questions to the new patient that you are schedulin. IS THIS DUE TO AN ACCIDENT? - NO 2. IS THIS WORKER'S COMP? PLEASE VERIFY IF THIS IS WORKERS COMP AND DOCUMENT (We do not accept any new workers comp cases) - NO 3. WHAT INSURANCE? - [facility] 4. HAVE YOU EVER BEEN SEEN BY A NEUROLOGIST BEFORE? IF YES, WHO AND WHEN? IS THIS A SECOND OPINION? - YES, DOES NOT REMEMBER 5. PATIENT IS SCHEDULED ON/WITH: - 10/20 AR 11AM WITH DEBI CLAYTON [facility] Note 10-09-2023 Telephone Encounter - Shila Son - 10/09/2023 2:34 PM EST Note Date & Type Note Facility 10-09-2023 Telephone encount er Note Please ask the following questions to the new patient that you are schedulin. IS THIS DUE TO AN ACCIDENT? - NO 2. IS THIS WORKER'S COMP? PLEASE VERIFY IF THIS IS WORKERS COMP AND DOCUMENT (We do not accept any new workers comp cases) - NO 3. WHAT INSURANCE? - [facility] 4. HAVE YOU EVER BEEN SEEN BY A NEUROLOGIST BEFORE? IF YES, WHO AND WHEN? IS THIS A SECOND OPINION? - YES, DOES NOT REMEMBER 5. PATIENT IS SCHEDULED ON/WITH: - 10/20 AR 11AM WITH DEBI CLAYTON [facility] Evaluation note 07-03-2021 Note Date & Type Note Facility 07-03-2021 Evaluation note Encounter Date Diagnosis Assessment Notes Jun, Encounter for screening for other viral diseases (ICD-10 - Z11.59) Jun, Other Additional time spent conducting pre-visit phone call, screening for symptoms, instructions on social distancing, application and removal of PPE, and cleaning of examination room, equipment and supplies was preformed. Patient education given for testing methodology and results. Patient care instructions given in writting by [facility] document. [employer] Other Evaluation note Note Date & Type Note Facility Evaluation note Diagnosis Cervical radiculopathy- Primary Brachial neuritis or radiculitis nos Degenerative disc disease, cervical Rotator cuff tear arthropathy of right shoulder Cervical radiculopathy Brachial neuritis or radiculitis nos [facility] general Narrative - Reported Note Date & Type Note Facility History general Narrative - Reported Type Medical History migraine headache Medical History back pain Medical History fibromyalgia Medical History raynauds syndrome [employer] Other Instructions Note Date & Type Note Facility Instructions Not on filedocumented in this en counter [facility] Instructions Note Date & Type Note Facility Instructions Not on filedocumented in this en counter [facility] Summary Purpose Family History No Family History Records FoundNo Family History Records Found Advance Directives No Advanced Directives Records FoundNo Advanced Directives Records Found Reason for Referral Specialty Diagnoses / Procedures Referred By Contac t Referred To Contact Rehabilitation Diagnoses Cervical radiculopathy Debi Clayton PA-C [address] [facility], [address] [place] [address] [facility] [address] [place] [address] Referral ID Status Reason Start Date Expiration Date V isits Requested Visits Authorized [id number] Closed Specialty Services Required 10/21/2023 10/20/2024 1 1 Additional Source Comments REASON FOR VISIT (unrecogniz ed section and content) Reason Comments Migraine Patient is here toda y as a new patient for DX of Cervical herniated disc, Migraine without status migrainosus, not intractable, unspecified migraine type. Specialty Diagnoses / Procedures Referred By Contac t Referred To Contact Neurology Diagnoses Migraine without status migrainosus, not intractable, unspecified migraine type Cervical herniated disc Jason Scruggs DO [address] [place] [address] [facility] Neurology [address] [place] [address] Referral ID Status Reason Start Date Expiration Date Visits Requested Visits Authorized [id number] Pending Review Specialty Services Required 10/06/2023 10/05/2024 1 1 INFORMATION SOURCE (unrecogn ized section and content) DATE CREATED AUTHOR 11/02/2022 [facility] DATE CREATED AUTHOR AUTHOR'S ORGANIZ ATION 10/22/2023 [facility] Care Teams (unrecognized sec tion and content) Cancer Registry Coordinator Relationship Specialty Start Date End Date Jason Scruggs DO [address] [place] [address] PCP - General Family Medicine 11/08/18 Cancer Registry Coordinator Relationship Specialty Start Date End Date Jason ScruggsDO [address] [place] [address] PCP - General Family Medicine 11/08/18 FOR RECORDS PERTAINING TO PATIENTS WHO ARE OR HAVE BEEN ENROLLED IN A CHEMICAL DEPENDENCY/SUBSTANCEABUSE PROGRAM, SOME INFORMATION MAY BE OMITTED. This clinical summary was aggregated from multiple sources. Caution should be exercised in using it in the provision of clinical care. This summary normalizes information from multiple sources, and as a consequence, information in this document may materially change the coding, format and clinical context of patient data. In addition, data may be omitted in some cases. CLINICAL DECISIONS SHOULD BE BASED ON THE PRIMARY CLINICAL RECORDS. [facility] [facility]. provides no warranty or guarantee of the accuracy or completeness of information in this document.
--- NOTE | 2023-10-28 09:53 | PM.CN ---
Consult Note: HPI Data of Consult Patient: new to practice Consult date: 10/28/23 Requesting Physician: Katherine Hobbs NP Primary Care Provider: JOLENE SCRUGGS, Consult Narrative Reason for consult: f/u Narrative: Chrissie tobar pleasant 47 year old female presents for evaluation and management of chronic neck pain and hx of bilateral shoulder pain, worsening since April of 2023. Today pain 6/10 constant increasing to 10/10, worse with pushing pulling activity, any movement of arms. Failed gabapentin in the past had side effects, lyrica has been beneficial but caused 30lb weight gain in 6 weeks. Patient was recommend to go to orthopedics for evaluation of shoulder pain but was told she had to see pain management first. Unable to continue PT/HEP due to severe pain and weakness. Patient has a rotator cuff tear to right shoulder, see imaging report below. See imaging below for cervical MRI results, consistent with stenosis and radiculopathy. 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 Highest level of school completed/degree received: Associate degree: academic program Are you now , , , , never or living with a partner: In a typical week, how many times do you talk on the telephone with family, friends, or neighbors: 3 or more times per week How often do you get together with friends or relatives: twice per week How often do you attend anabaptism or sikh services: never Do you belong to any clubs or organizations such as anabaptism groups unions, fraternal or athletic groups, or school groups: no Total score: 2 Score interpretation: A score of greater than or equal to 2 indicates the lowest level of social isolation. Little interest or pleasure in doing things: several days Feeling down, depressed, or hopeless: several days Feel stressed/tense/nervous/anxious/difficulty sleeping: very much Life stressors: divorce/separation, loss of job and financial matters Do you think of yourself as: straight/heterosexual Gender Identity: female Meds Home Medications and Allergies Home Medications ?Medication ?Instructions ?Recorded ?Confirmed ?Type etodolac 400 mg tablet 400 mg PO DAILY 02/19/23 02/19/23 History milnacipran 25 mg tablet (Savella) 25 mg PO BID 02/19/23 02/19/23 History naltrexone 50 mg tablet 4.5 mg PO DAILY 02/19/23 02/19/23 History nifedipine 60 mg tablet,extended 60 mg PO DAILY 02/19/23 02/19/23 History release Allergies Allergy/AdvReac Type Severity Reaction Status Date / Time codeine Allergy tremors Verified 02/18/23 23:02 Exam Constitutional Documenting provider has reviewed patient's vital signs: yes Common normals: no apparent distress, oriented x3, healthy appearing, alert and well nourished General appearance: cooperative HENMT Common normals: normocephalic, hearing grossly normal bilaterally and moist oral mucous membranes Head and scalp: normocephalic Eye Common normals: PERRL Pupil: PERRL Neck & C-Spine Common normals: full ROM General: normal visual inspection Cervical spine: pain with cervical ROM, cervical spine tenderness and paracervical muscle tenderness Chest Common normals: inspection of chest normal Respiratory Common normals: normal respiratory effort, no retractions and no use of accessory muscles Extremity Right upper extremity: shoulder joint Left upper extremity: shoulder joint Other: severe limitation to ROM of right shoulder, unable to lift arm. strength 3/5. decreased sensation noted Left Shoulder: mild to moderate pain with ROM, negative crossbody test, negative empty can, negative lift off test, strength 4/5 Neuro Common normals: oriented x3, CN's II-XII intact bilaterally, moves all extremities, no focal motor deficits, no sensory deficits noted and deep tendon reflexes 2+ bilaterally Sensorium/orientation: alert Motor exam: no movement abnormalities noted and strength abnormal Psych Common normals: mental status grossly normal, thought process normal, cooperative, affect normal, speech normal and activity/motor behavior normal Speech: normal speech Thought process: normal thought process Results Imaging shoulder MRI: Attestation: I have reviewed the pertinent imaging results. Radiologist's impression: Right shoulder: The acromioclavicular joint is congruent with mild joint space narrowing capsular hypertrophy. No significant narrowing of supraspinatus outlet. Fluid within the subacromial subdeltoid bursa is nonspecific incidental full-thickness rotator cuff tear. Superimposed on tendinosis, there is full-thickness, fullwidth tear of the supraspinatus tendon with proximal retraction to the humeral dome. The tear propagates into the infraspinatus tendon as intermediate to high-grade near full width partial tearing. The teres minor tendon is intact. The subscapularis tendon is mildly thickened with intermediate signal consistent with tendinosis. No tear. Atrophy of the supraspinatus and infraspinatus muscles. The extracapsular biceps tendon is within the bicipital groove. Intracapsular biceps tendon is normal. The humerus is centered on the glenoid. The glenohumeral articular cartilage demonstrates intermediate grade chondrosis. There is posterior superior labral degeneration versus remote SLAP tear. Small joint effusion. The bone marrow signal is without fracture. The quadrilateral space is patent. No axillary lymphadenopathy. Left shoulder: The acromioclavicular joint is congruent with mild joint space narrowing, capsular hypertrophy and subchondral edema/cystic changes. Inferior marginal osteophytes narrow the supraspinatus outlet. Small amount of fluid is present in the subacromial subdeltoid bursa. There is mild thickening and intermediate signal of the supraspinatus and supraspinatus tendons consistent with tendinosis. Low-grade bursal sided fraying central cuff. No tear identified. The teres minor tendon is intact. The subscapularis tendon is intact. The exit capsular biceps tendon is within the bicipital groove. Intracapsular biceps tendon is normal. The rotator cuff musculature demonstrates symmetric bulk and signal. The humerus is centered on the glenoid. Intermediate grade chondrosis. Posterior superior labral degeneration. No joint effusion. The bone marrow signal is without fracture. The quadrilateral space is patent. No axillary lymphadenopathy. cervical MRI: Attestation: I have reviewed the pertinent imaging results. Radiologist's impression: Cervical spine alignment normal. No subluxation. Signal in the bone marrow space is normal. No bone marrow edema. No suspicious osseous lesions. C2-C3, no spinal stenosis. No foraminal narrowing. C3-C4, mild degenerative disc disease is stable. No spinal stenosis or foraminal narrowing. This level is stable. C4-C5, severe degenerative disc disease. Endplate osteophyte complex results in mild spinal stenosis. Uncovertebral osteophytes result in moderate bilateral foraminal narrowing. This level is stable. C5-C6, severe degenerative disc disease. There is mild spinal canal stenosis. Uncovertebral osteophyte on the left results in severe left neural foraminal narrowing which is stable. C6-C7, mild degenerative disc disease. Diffuse disc bulge. No spinal stenosis. No significant foraminal narrowing. This level is stable. C7-T1, no spinal stenosis. No foraminal narrowing. No spinal cord compression. No abnormal signal in the cervical spinal cord. Additional Findings Additional findings: If on a controlled substance or opioids, I have checked an OARRS report on this patient and there are no aberrancies noted in the prescribing history.??If on a controlled substance or opioid a drug screen was completed and reviewed within the last year, and if there has not been a drug screen completed we ordered one today to monitor higher risk, state monitored pain medication use. As part of providing excellent, safe, comprehensive care, the following was completed at our patient's visit: 1. A medication reconciliation and review to ensure accurate knowledge of current/active medications, including asking our patients to inform us about any gfgo-mok-cuzsmrw medications or herbal remedies/nutritional supplements/alternative remedies. 2. A review to specifically ensure our patients have had annual screening for screening for depression, screening for tobacco use, and screening for unhealthy alcohol use. For concerning screenings had a discussion with the patient, provided patient education, and recommended follow-up with primary care provider when appropriate. If patient noted with a risk of falling, they received education on strength, gait, and balance training to prevent future risk of falling. Assessment and Plan Assessment and Plan (1) Cervical spinal stenosis: (2) Cervical radiculopathy: (3) Bilateral shoulder pain: Plan multiple etiologies of pain as noted on exam and prior imaging, discussed that cervical ESIs likely wont improve her bilateral shoulder pain but should help with cervical radiculopathy as recommended by neurology and myself bilateral C4-5 TFESI under fluoroscopy followed by bilateral C5-6 TFESI under fluoroscopy 2 weeks apart. risks vs benefits discussed. continue medications through PCP, utilizing lyrica 50mg as needed for moderate to severe pain encouraged f/u with orthopedics for bilateral shoulder pain right greater than left, orthopedics declining to see her until she has seen neurology and pain management MULTIMEDIA DEVELOPER reviewed and signed, defer UDS f/u 2 weeks after injections
== END 2023-10-28 09:02 | disposition home or self-care (01) ==
LOC: PM 09:02
PROVIDERS: PCP Family Medicine; Visit Provider Nurse Practitioner
DX: M48.02 Spinal stenosis, cervical region (principal); M54.12 Radiculopathy, cervical region; M25.511 Pain in right shoulder; M25.512 Pain in left shoulder
CPT/HCPCS: G0463

== ENCOUNTER 2023-11-09 06:52 | Day surgery (SDC) | payer OTHER, SELFPAY ==
--- OUTSIDE RECORDS SUMMARY | 2023-11-09 06:55 | XMS_ITS | CCD ---
Author Organization [facility] Care Team Providers Care Rubber Goods Repairer Name Role Phone Patsy Negrete Unavailable SCRUGGS, [...] Codeine; Translations: [CODEINE] Drug Allergy 3 [facility] Repository (2 sources) Codeine Drug Allergy 9 Other (See Comments) [employer] Work Phone: Medications Current Medications Medication Drug [...] 12 hrs for 7 days Oct, Active Wgxaffbbwl-EXJK-Ycgi eine (1 source) Butalbital-APAP- Caf feine Active [...] (4 sources) Start: 12-24-2018 End: 10-21-2023 take [id number] tablet by mouth twice daily busPIRone (BUSPAR) [...] PETE COPE Date: 2022-10-29 09:18 Normal [facility] MAMM SCREEN 3D ANISH CADon 12-18-2021 MG MAMM SCREEN 3D ANISH CAD Patient: LISBETH SÁNCHEZ Exam Date: 12/18/2021 : 1975 Gender:F Ordering : DR JASON SCRUGGS DJessiOJessi Admission #: [id number] Family : Order #: [id number] CLICK HERE TO VIEW EXAM RADIOLOGY REPORT [...] colon,uterine cancer at age 49. LOCATION: [facility] BREAST COMPOSITION: Heterogeneously dense,which may obscure [...] Harris MD on 12/18/2021 at 14:31 Normal [facility] COVID Quick Testingon 2020 Result Negative [employer] Other Vital Signs Date Time Vital Sign Value Performing Clinician Narinder vasquez 10-21-2023 11:03-0400 Body height 157.5 cm Debi PLATA-C Work Phone: [employer] 10-21-2023 11:03-0400 Body mass index (BMI) [Ratio] 28.83 kg/m2 Debi PLATA-C Work Phone: [employer] 10-21-2023 11:03-0400 Body weight 71.49 kg Debi PLATA-C Work Phone: [employer] 10-21-2023 11:03-0400 Diastolic blood pressure 85 mm[Hg] Debi PLATA-C Work Phone: [employer] 10-21-2023 11:03-0400 Heart rate 101 /min Debi PLATA-C Work Phone: [employer] 10-21-2023 11:03-0400 Systolic blood pressure 167 mm[Hg] Debi PLATA-C Work Phone: [employer] Encounters Encounter Date Encounter Type Care Provider Facility Start: 10-22-2023 ambulatory DEBI Jadon [facility] Start: 10-21-2023 End: 10-21-2023 ambulatory [facility] Start: 10-21-2023 End: 10-21-2023 Office outpatient new 45 minutes Debi Clayton PA-C Work Phone: [facility] Comment on above: Cervical radiculopat hy (Primary Dx); Degenerative disc disease, cervical; Rotator cuff tear arthropathy of right shoulder Start: 10-09-2023 Telephone encounter [facility] Start: 10-29-2022 End: 10-30-[address] JASON SCRUGGS Facility:[facility] Start: 12-18-2021 End: 12-19-[address] JASON SCRUGGS Facility:[facility] Start: 07-03-2021 End: 07-03-2021 ambulatory Patsy Negrete Other [employer] Other Start: 07-03-2021 Office outpatient vi sit 5 minutes Patsy Negrete [facility] Procedures Date Procedure Procedure Detail Performing Clinician Start: 10-21-2023 Adult depression screening assessment Debi Clayton PA-C Work Phone: Plan of Treatment Date Care Activity Detail Author Start: 10-20-2024 Adult BMI Screening Adult BMI Screen ing [facility] Start: 10-20-2024 [facility]: 10-20-2024 Tobacco Screening Tobacco Screening [facility] Start: 01-27-2024 End: 01-27-2024 Patient encounter procedure 01/27/2024 1:30 PM EDT Office Visit [facility] [address] [place] [address] Debi Clayton PA-C [address] [address] [place] [id number] [facility] Start: 11-11-2023 End: 11-11-2023 Patient encounter procedure 11/11/2023 1:45 PM EDT Appointment [facility] [address] [place] [address] Cervical radiculopathy [facility] Comment on above: Cervical radiculopat hy Start: 10-30-2023 Adult BMI Screening Adult BMI Screen ing [facility] Start: 10-30-2023 Tobacco Screening Tobacco Screening [facility] Start: 10-21-2023 End: 10-21-2023 Patient encounter procedure 10/21/2023 11:00 AM EDT [facility] [address] [place] [address] Debi Clayton, PAStefanC [address] [place] [address] [facility] Start: 04-10-2023 COVID-19 Vaccine ( season) COVID-19 Vaccine ( season) [facility] Start: 04-10-2023 Influenza vaccination Influenza Vacc ine [facility] Start: 1993 DTaP,Tdap and Td Vaccines (1 - Tdap) DTaP,Tdap and Td Vaccines (1 - Tdap) [facility] Start: 1992 Adult BMI Follow Up Plan Adult BMI Follow Up Plan [facility] Start: 1986 Depression Screening Depression Scre ening [facility] Start: 1975 Tobacco Counseling Tobacco Counselin g [facility] Immunizations Immunization Date Immunization Notes Care Provider Fa cility 05-09-2021 influenza virus vacc ine, unspecified formulation Shila Son [facility] Payers Date Payer Category Payer Unknown [employer]/FLEX/EMPLOYER [employer] [id number] 2018-Present [phone] [address] [place] [address] [id number] 1975 Unknown [id number] 1975 Unknown [id number] 1975 Unknown [id number] 1975 Unknown [id number] 1959 Unknown [id number] Social History Date Type Detail Facility Unknown if ever smoked [employer] Other Start: 09-20-2020 End: 10-29-2022 Sex Assigned At [facility] Other Start: 11-15-2018 End: 10-21-2023 Tobacco smoking status NHIS Smokes tobacco daily [facility] History of tobacco use Cigarette Smoker P [facility] Start: 11-15-2018 End: 09-20-2020 Cigarettes smoked current (pack per day) - Reported 1 [facility] Start: 11-15-2018 End: 10-21-2023 Tobacco use and exposure Smokeless tobacco non-user [facility] Childcare Unknown [facility] Start: 11-15-2018 Alcohol Comment rare [facility] Start: 1975 Sex Assigned At Not on file P [facility] History of Present illness Narrative 10-21-2023 Debi Clayton PA-C - 10/21/2023 11:00 AM EDT Note Date & Type Note Facility 10-21-2023 History of Present illness Narrative [facility] Office Note 10/21/2023 9:04 AM Patient info: Lisbeth Sánchez is a 47 y.o. female Account No.: [id number] Acct: : 1975 PCP: JASON SCRUGGS DO [...] of the infraspinatus tendon. Intact biceps tendon. Dpfe-ft-uaciltvq acromioclavicular osteoarthritis. Moderate glenohumeral osteoarthritis with posterior [...] PA-C 10/22/23 0901 documented in this encounter [facility] Note 10-09-2023 Telephone Encounter - Shila [...] cases) - NO 3. WHAT INSURANCE? - [facility] 4. HAVE YOU EVER BEEN SEEN BY A NEUROLOGIST BEFORE? IF YES, WHO AND WHEN? IS THIS A SECOND OPINION? - YES, DOES NOT REMEMBER 5. PATIENT IS SCHEDULED ON/WITH: - 10/20 AR 11AM WITH DEBI CLAYTON documented [facility] encounter Note 10-09-2023 Telephone Encounter [...] cases) - NO 3. WHAT INSURANCE? - [facility] 4. HAVE YOU EVER BEEN SEEN BY A NEUROLOGIST BEFORE? IF YES, WHO AND WHEN? IS THIS A SECOND OPINION? - YES, DOES NOT REMEMBER 5. PATIENT IS SCHEDULED ON/WITH: - 10/20 AR 11AM WITH DEBI CLAYTON [facility] Evaluation note 07-03-2021 Note Date & [...] Patient care instructions given in writting by [facility] Care At Home document. [employer] Other Evaluation note Note Date & Type Note Facility Evaluation note Diagnosis Cervical radiculopathy- Primary Brachial neuritis or radiculitis nos Degenerative disc disease, cervical Rotator cuff tear arthropathy of right shoulder Cervical radiculopathy Brachial neuritis or radiculitis nos [facility] general Narrative - Reported Note Date & Type Note Facility History general Narrative - Reported Type Medical History migraine headache Medical History back pain Medical History fibromyalgia Medical History raynauds syndrome [employer] Other Instructions Note Date & Type Note [...] Cervical radiculopathy Debi Clayton PA-C [address] [facility] [place] [address] [facility] [address] [place] [address] Referral ID Status Reason Start Date Expiration Date V isits Requested Visits Authorized [id number] Closed Specialty Services Required 10/21/2023 10/20/2024 1 [...] herniated disc Jason Scruggs DO [address] [place] [address] [facility] [address] [place] [address] Referral ID Status Reason Start Date Expiration Date Visits Requested Visits Authorized [id number] Pending Review Specialty Services Required 10/06/2023 10/05/2024 1 1 INFORMATION SOURCE (unrecogn ized section and content) DATE CREATED AUTHOR 11/02/2022 [employer] DATE CREATED AUTHOR AUTHOR'S ORGANIZ ATION 10/22/2023 [facility] Care Teams (unrecognized sec tion and content) Rubber Goods Repairer Relationship Specialty Start Date End Date Jason Scruggs DO [address] [place] [address] PCP - General Family Medicine 11/08/18 Rubber Goods Repairer Relationship Specialty Start Date End Date Jason ScruggsDO [address] [place] [address] PCP - General Family Medicine 11/08/18 FOR [...] BE BASED ON THE PRIMARY CLINICAL RECORDS. [employer]. provides no warranty or guarantee of the accuracy or completeness of information in this document.
[2023-11-09 07:08] VITALS: BP 118/76; PULSE 98; TEMP 36.3; O2SAT 96
[2023-11-09 07:44] VITALS: BP 109/65; PULSE 100; O2SAT 94
[2023-11-09 07:47] VITALS: BP 106/59; PULSE 99; O2SAT 91
--- NOTE | 2023-11-09 07:49 | W.PM.PROCNOT ---
Date of procedure: 11/09/23 Pre-op diagnosis: M54.12 Post-op diagnosis: same as pre-op Procedure: Procedure: Bilateral C4-5 transforaminal epidural steroid injection Medications: Bupivacaine 0.25% 1cc, lidocaine 2% 1cc, dexamethasone 10mg The patient was seen and examined in the preoperative holding area.? Informed consent was obtained and placed on the chart.? Patient was brought to the medical procedure unit and placed in the prone position where a timeout was completed verifying the correct patient, procedure site, position, and planned special equipment using sterile aseptic technique.? Under direct fluoroscopic visualization a 25-gauge Quincke tipped spinal needle was advanced at level left C4-5 to the designated neural foramen where contrast dye was injected to show adequate spread.? There was no evidence of vascular or adverse uptake.? Epidural spread was appreciated.? The above-mentioned injectate was then placed in a 1.5 mL aliquot preceded by negative aspiration.? The needle was removed. The same procedure, at the same level, was completed on the opposite side. ? Patient was taken to the postprocedural recovery area and monitored for an appropriate length of time before found suitable for discharge in the accompaniment of a responsible adult.? Anesthesia: Local Surgeon: Tatianna Romeo Pathology: none sent Condition: stable Disposition: no change
[2023-11-09] MEDS: DEXAMETHASONE SOD PHOS 10 MG/ML VIAL INJ (07:51)
[2023-11-09] MEDS: BUPIVACAINE HCL 0.25% PF 25 MG/10 ML VIAL INJ (07:51)
[2023-11-09] MEDS: IOHEXOL 240 MG/ML - 10 ML VIAL 12 MG INJ (07:52)
[2023-11-09] MEDS: LIDOCAINE HCL 2% PF 100 MG/5 ML VIAL 4 ML INJ (07:52)
== END 2023-11-09 07:57 | disposition home or self-care (01) ==
PROVIDERS: PCP Family Medicine; Visit Provider Anesthesiology
DX: M54.12 Radiculopathy, cervical region (principal)
CPT/HCPCS: 64479; J1100; Q9966

== ENCOUNTER 2023-11-23 06:43 | Day surgery (SDC) | payer OTHER, SELFPAY ==
--- OUTSIDE RECORDS SUMMARY | 2023-11-23 06:46 | XMS_ITS | CCD ---
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 ALEJANDRA, ERIC Diop Attending Unavaila tony ROBERTS JR., ERIC Diop Referring Unavaila tony Romeo MD, Tatianna Garsia Attending Unavailable Allergies Allergy Classification Reported Allergen(s) Allergy Type Date of Onset Reaction(s) Facility (2 sources) Codeine; Translations: [CODEINE] Drug Allergy 3 [facility] Repository (2 sources) Codeine Drug Allergy 9 Other (See Comments) [employer] [facility] Work Phone: Medications Current Medications Medication Drug [...] 12 hrs for 7 days Oct, Active Ounbgvwned-XMTI-Fopz eine (1 source) Butalbital-APAP- Caf feine Active [...] (4 sources) Start: 12-24-2018 End: 10-21-2023 take [id number] tablet by mouth twice daily busPIRone (BUSPAR) [...] by: PETE COPE Date: 2022-10-29 09:18 Normal [facility] MG MAMM SCREEN 3D ANISH CADon 12-18-2021 MG MAMM SCREEN 3D ANISH CAD Patient: LISBETH SÁNCHEZ Exam Date: 12/18/2021 : 1975 Gender:F Ordering : DR JASON SCRUGGS DWillie Admission #: [id number] Family : Order #: [id number] CLICK HERE TO VIEW EXAM RADIOLOGY REPORT [...] colon,uterine cancer at age 49. LOCATION: [facility] BREAST COMPOSITION: Heterogeneously dense,which may obscure [...] Harris MD on 12/18/2021 at 14:31 Normal [facility] COVID Quick Testingon 2020 Result Negative [facility] Other Vital Signs Date Time Vital Sign Value Performing Clinician Faci lity 10-21-2023 11:03-0400 Body height 157.5 cm Debi PLATA-C Work Phone: [facility] 10-21-2023 11:03-0400 Body mass index (BMI) [Ratio] 28.83 kg/m2 Debi PLATA-C Work Phone: [employer] [facility] 10-21-2023 11:03-0400 Body weight 71.49 kg Debi PLATA-C Work Phone: [employer] 10-21-2023 11:03-0400 Diastolic blood pressure 85 mm[Hg] Debi PLATA-C Work Phone: [employer] [facility] 10-21-2023 11:03-0400 Heart rate 101 /min Debi PLATA-C Work Phone: [employer] [facility] 10-21-2023 11:03-0400 Systolic blood pressure 167 mm[Hg] Debi PLATA-C Work Phone: [employer] Encounters Encounter Date Encounter Type Care Provider Facility Start: 11-11-2023 End: 11-12-2023 ambulatory ERIC FREEMAN Not Available Start: 11-09-2023 End: 11-10-2023 ambulatory Tatianna Romeo MD Facility:[facility] Start: 10-22-2023 ambulatory DEBI Diop [facility] Start: 10-21-2023 End: 10-21-2023 ambulatory DEBI Diop [facility] Start: 10-21-2023 End: 10-21-2023 Office outpatient new 45 minutes Debi Galeas PA-C Work Phone: [facility] Comment on above: Cervical radiculopat hy (Primary Dx); Degenerative disc disease, cervical; Rotator cuff tear arthropathy of right shoulder Start: 10-09-2023 Telephone encounter [facility] Start: 10-29-2022 End: 10-30-[address] JASON SCRUGGS Facility:[facility] Start: 12-18-2021 End: 12-19-[address] JASON SCRUGGS Facility:[facility] Start: 07-03-2021 End: 07-03-2021 ambulatory Patsy Negrete Other [facility] Other Start: 07-03-2021 Office outpatient vi sit 5 minutes Patsy Negrete [facility] Procedures Date Procedure Procedure Detail Performing Clinician Start: 10-21-2023 Adult depression screening assessment Debi Galeas PA-C Work Phone: Plan of Treatment Date Care Activity Detail Author Start: 10-20-2024 Adult BMI Screening Adult BMI Screen ing [facility] Start: 10-20-2024 Depression Screening Depression Scre ening [facility] Start: 10-20-2024 Tobacco Screening Tobacco Screening [facility] Start: 01-27-2024 End: 01-27-2024 Patient encounter procedure 01/27/2024 1:30 PM EDT Office Visit [facility] [address] [facility] [place] [address] Debi Galeas PA-C [address] [place] [phone] [facility] Start: 11-11-2023 End: 11-11-2023 Patient encounter procedure 11/11/2023 1:[address] [facility] [address] [facility] [place] [phone] [facility] Comment on above: Cervical radiculopat hy Start: 10-30-2023 Adult BMI Screening Adult BMI Screen ing [facility] Start: 10-30-2023 Tobacco Screening Tobacco Screening [facility] Start: 10-21-2023 End: 10-21-2023 Patient encounter procedure 10/21/2023 11:00 AM EDT Office Visit [facility] [address] [place] [address] [address] [facility] [place] [phone] Debi Galeas, CHEN [address] [facility] [place] [address] [facility] Start: 04-10-2023 COVID-19 Vaccine ( season) COVID-19 Vaccine ( season) [facility] Start: 04-10-2023 Influenza vaccination Influenza Vacc ine [facility] Start: 1993 DTaP,Tdap and Td Vaccines (1 - Tdap) DTaP,Tdap and Td Vaccines (1 - Tdap) [facility] Start: 1992 Adult BMI Follow Up Plan Adult BMI Follow Up Plan [facility] Start: 1986 Depression Screening Depression Scre ening [facility] Start: 1975 Tobacco Counseling Tobacco Counselin g [facility] Immunizations Immunization Date Immunization Notes Care Provider Fa cility 05-09-2021 influenza virus vacc ine, unspecified formulation Shila Son [facility] Payers Date Payer Category Payer Unknown [id number] 1975 Unknown [id number] [id number] 1975 Unknown [id number] 2.16.84 [id number] 1975 Unknown [id number] 2.16.8 [id number] 1975 Unknown [id number] 2.16.8 [id number] 1975 Unknown [id number] 2.16.84 [id number] 1975 Unknown [id number] 2.16.84 [id number] 1975 Unknown [id number] [id number]. [id number] 1959 Unknown [id number] 2.1 [id number] Social History Date Type Detail Facility Unknown if ever smoked [facility] Other Start: 09-20-2020 End: 10-29-2022 Sex Assigned At [employer] Other Start: 11-15-2018 End: 10-21-2023 Tobacco smoking status NHIS Smokes tobacco daily [facility] History of tobacco use Cigarette Smoker P [facility] Start: 11-15-2018 End: 09-20-2020 Cigarettes smoked current (pack per day) - Reported 1 [facility] Start: 11-15-2018 End: 10-21-2023 Tobacco use and exposure Smokeless tobacco non-user [facility] Childcare Unknown [facility] Start: 11-15-2018 Alcohol Comment rare [facility] Start: 1975 Sex Assigned At Not on file P [facility] History of Present illness Narrative 10-21-2023 Debi Galeas PA-C - 10/21/2023 11:00 AM EDT Note Date & Type Note Facility 10-21-2023 History of Present illness Narrative [facility] Office Note 10/21/2023 9:04 AM Patient info: Lisbeth Sánchez is a 47 y.o. female Account No.: [id number] Acct: : 1975 PCP: JASON SCRUGGS DO [...] of the infraspinatus tendon. Intact biceps tendon. Iczm-le-vadanvzq acromioclavicular osteoarthritis. Moderate glenohumeral osteoarthritis with posterior [...] in 2-3 months Electronically Signed by: Debi Galeas PA-C 10/22/23 0901 documented in this encounter [facility] [employer] [facility] Note 10-09-2023 Telephone Encounter - Shila Mejiahore - 10/09/2023 2:34 PM EST Note Date [...] cases) - NO 3. WHAT INSURANCE? - [facility] 4. HAVE YOU EVER BEEN SEEN BY A NEUROLOGIST BEFORE? IF YES, WHO AND WHEN? IS THIS A SECOND OPINION? - YES, DOES NOT REMEMBER 5. PATIENT IS SCHEDULED ON/WITH: - 10/20 [place] 11AM WITH DEBI GALEAS [facility] Tele[facility] encounter Note 10-09-2023 Telephone Encounter - Shilageronimo Son - 10/09/2023 2:34 PM EST Note [...] cases) - NO 3. WHAT INSURANCE? - [facility] 4. HAVE YOU EVER BEEN SEEN BY A NEUROLOGIST BEFORE? IF YES, WHO AND WHEN? IS THIS A SECOND OPINION? - YES, DOES NOT REMEMBER 5. PATIENT IS SCHEDULED ON/WITH: - 10/20 AR 11AM [facility] note 07-03-2021 Note Date & [...] Patient care instructions given in writting by [facility] At Home document. [facility] Other Evaluation note Note Date & Type Note Facility Evaluation note Diagnosis Cervical radiculopathy- Primary Brachial neuritis or radiculitis nos Degenerative disc disease, cervical Rotator cuff tear arthropathy of right shoulder Cervical radiculopathy Brachial neuritis or radiculitis nos documented in this encounter [facility] History general Narrative - Reported Note Date & Type Note Facility History general Narrative - Reported Type Medical History migraine headache Medical History back pain Medical History fibromyalgia Medical History raynauds syndrome [facility] Other Instructions Note Date & Type Note Facility Instructions Not on filedocumented in this en counter [facility] Instructions Note Date & Type Note Facility Instructions Not on filedocumented in this en counter [facility] Summary Purpose Family History No Family History Records FoundNo Family History Records FoundNo Family History Records FoundNo Family History Records Found Advance Directives No Advanced Directives Records FoundNo Advanced Directives Records FoundNo Advanced Directives Records FoundNo Advanced Directives Records Found Reason for Referral Specialty Diagnoses / Procedures Referred By Oralia ford Referred To Contact Rehabilitation Diagnoses Cervical radiculopathy Debi Galeas PA-C [address] [facility] [place] [address] [facility] [address] [place] [address] Referral ID Status Reason Start Date Expiration Date V isits Requested Visits Authorized [id number] Closed Specialty Services Required 10/21/2023 10/20/2024 1 1 Additional Source Comments REASON FOR VISIT (unrecogniz ed section and content) Reason Comments Migraine Patient is here toda y as a new patient for DX of Cervical herniated disc, Migraine without status migrainosus, not intractable, unspecified migraine type. Specialty Diagnoses / Procedures Referred By Oralia ford Referred To Contact Neurology Diagnoses Migraine without status migrainosus, not intractable, unspecified migraine type Cervical herniated disc Jason Scruggs, DO [address] [place] [address] [facility] [address] [place] [address] Referral ID Status Reason Start Date Expiration Date Visits Requested Visits Authorized [id number] Pending Review Specialty Services Required 10/06/2023 10/05/2024 1 1 INFORMATION SOURCE (unrecogn ized section and content) DATE CREATED AUTHOR 11/02/2022 [facility] DATE CREATED AUTHOR AUTHOR'S ORGANIZ ATION 10/22/[address] 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 [employer] provides no warranty or guarantee of the accuracy or completeness of information in this document.
[2023-11-23 07:01] VITALS: BP 118/79; PULSE 96; TEMP 36.2; O2SAT 99
[2023-11-23] MEDS: IOHEXOL 240 MG/ML - 10 ML VIAL INJ (07:57)
[2023-11-23] MEDS: DEXAMETHASONE SOD PHOS 10 MG/ML VIAL INJ (07:57)
[2023-11-23] MEDS: BUPIVACAINE HCL 0.25% PF 25 MG/10 ML VIAL INJ (07:57)
[2023-11-23] MEDS: LIDOCAINE HCL 2% PF 100 MG/5 ML VIAL INJ (07:57)
[2023-11-23 07:58] VITALS: BP 104/57; PULSE 102; O2SAT 94
[2023-11-23 08:00] VITALS: PULSE 102; O2SAT 95
--- NOTE | 2023-11-23 08:01 | W.PM.PROCNOT ---
Date of procedure: 11/23/23 Pre-op diagnosis: M54.12 Post-op diagnosis: same as pre-op Procedure: Procedure: Bilateral C5-6 transforaminal epidural steroid injection Medications: Bupivacaine 0.25% 1cc, lidocaine 2% 1cc, dexamethasone 10mg The patient was seen and examined in the preoperative holding area.? Informed consent was obtained and placed on the chart.? Patient was brought to the medical procedure unit and placed in the prone position where a timeout was completed verifying the correct patient, procedure site, position, and planned special equipment using sterile aseptic technique.? Under direct fluoroscopic visualization a 25-gauge Quincke tipped spinal needle was advanced at level left C5-6 to the designated neural foramen where contrast dye was injected to show adequate spread.? There was no evidence of vascular or adverse uptake.? Epidural spread was appreciated.? The above-mentioned injectate was then placed in a 1.5 mL aliquot preceded by negative aspiration.? The needle was removed. The same procedure, at the same level, was completed on the opposite side. ? Patient was taken to the postprocedural recovery area and monitored for an appropriate length of time before found suitable for discharge in the accompaniment of a responsible adult. Anesthesia: Local Surgeon: Tatianna Romeo Pathology: none sent Condition: stable Disposition: no change
== END 2023-11-23 08:05 | disposition home or self-care (01) ==
PROVIDERS: PCP Family Medicine; Visit Provider Anesthesiology
DX: M54.12 Radiculopathy, cervical region (principal)
CPT/HCPCS: 64479; J1100; Q9966

== ENCOUNTER 2023-12-02 14:46 | Outpatient (OUT) | payer OTHER, SELFPAY ==
--- NOTE | 2023-12-02 15:04 | PM.CN ---
Consult Note: HPI Data of Consult Patient: known to practice within the last 3 years Consult date: 10/28/23 Requesting Physician: Katherine Hobbs NP Primary Care Provider: JOLENE SCRUGGS, Consult Narrative Reason for consult: f/u Narrative: Chrissie tobar pleasant 47 year old female presents for evaluation and management of chronic neck pain and hx of bilateral shoulder pain, worsening since April of 2023. Today pain 5/10 constant increasing to 10/10, worse with pushing pulling activity, any movement of arms. Failed gabapentin in the past had side effects, lyrica has been beneficial but caused 30lb weight gain in 6 weeks, now started on trileptal 300mg BID by neurology but they told her to f/u with PCP/pain management. Unable to continue PT/HEP due to severe pain and weakness. Patient has a rotator cuff tear to right shoulder, see imaging report below. See imaging below for cervical MRI results, consistent with stenosis and radiculopathy. Patient now scheduled for right shoulder surgery in march with Dr Castellanos. Patient recently underwent bilateral C4/5 TFESI and bilateral C5/6 TFESI with 60% improvement ongoing. Patient would like to discuss injection options for left shoulder pain. cc:: CC: Katherine Hobbs NP Review of Systems ROS Status of ROS 10 or more systems reviewed and unremarkable except as noted in history and below Musculoskeletal Reports: neck pain, extremity pain and joint pain PFSH PFSH Medical History Hypothyroid ?E03.9 - Hypothyroidism, unspecified (ICD-10) Osteoarthritis ?M19.90 - Unspecified osteoarthritis, unspecified site (ICD-10) Fibromyalgia ?M79.7 - Fibromyalgia (ICD-10) Raynauds disease ?I73.00 - Raynaud's syndrome without gangrene (ICD-10) Anxiety ?F41.9 - Anxiety disorder, unspecified (ICD-10) Carpal tunnel syndrome ?G56.00 - Carpal tunnel syndrome, unspecified upper limb (ICD-10) Acid reflux ?K21.9 - Gastro-esophageal reflux disease without esophagitis (ICD-10) History of smoking at least 1 pack per day for at least 30 years ?Z87.891 - Personal history of nicotine dependence (ICD-10) Surgical History H/O tubal ligation ?Z98.51 - Tubal ligation status (ICD-10) H/O: hysterectomy ?Z90.710 - Acquired absence of both cervix and uterus (ICD-10) Social History Smoking status: Current every day smoker 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 or athletic groups, or school groups: no Total score: 2 Score interpretation: A score of greater than or equal to 2 indicates the lowest level of social isolation. Little interest or pleasure in doing things: several days Feeling down, depressed, or hopeless: several days Feel stressed/tense/nervous/anxious/difficulty sleeping: very much Life stressors: divorce/separation, loss of job and financial matters Do you think of yourself as: straight/heterosexual Gender Identity: female Meds Home Medications and Allergies Home Medications ?Medication ?Instructions ?Recorded ?Confirmed ?Type etodolac 400 mg tablet 400 mg PO DAILY 02/19/23 11/23/23 History milnacipran 25 mg tablet (Savella) 100 mg PO BID 02/19/23 11/23/23 History vdtqskoesq-jkfkwpjvzjbiz-jouuyoug 1 cap PO DAILY PRN pain 10/28/23 11/23/23 History 50 mg-300 mg-40 mg capsule (Fioricet) cyclobenzaprine 10 mg tablet 10 mg PO Q12H 10/28/23 11/23/23 History esomeprazole magnesium 40 mg 40 mg PO DAILY 10/28/23 11/23/23 History capsule,delayed release (Nexium) nifedipine 20 mg capsule 60 mg PO BID 10/28/23 11/23/23 History oxcarbazepine 150 mg tablet 150 mg PO DAILY 10/28/23 11/23/23 History (Trileptal) pregabalin 50 mg capsule 50 mg PO Q12H PRN SHOOTING PAIN 10/28/23 11/23/23 History Allergies Allergy/AdvReac Type Severity Reaction Status Date / Time codeine Allergy tremors Verified 11/23/23 06:59 Exam Constitutional Documenting provider has reviewed patient's vital signs: yes Common normals: no apparent distress, oriented x3, healthy appearing, alert and well nourished General appearance: cooperative HENMT Common normals: normocephalic, hearing grossly normal bilaterally and moist oral mucous membranes Head and scalp: normocephalic Eye Common normals: PERRL Pupil: PERRL Neck & C-Spine Common normals: full ROM General: normal visual inspection Cervical spine: pain with cervical ROM, cervical spine tenderness and paracervical muscle tenderness Other: positive spurlings Chest Common normals: inspection of chest normal Respiratory Common normals: normal respiratory effort, no retractions and no use of accessory muscles Extremity Right upper extremity: shoulder joint Left upper extremity: shoulder joint Other: severe limitation to ROM of right shoulder, unable to lift arm. strength 3/5. decreased sensation noted Left Shoulder: mild to moderate pain with ROM, negative crossbody test, negative empty can, negative lift off test, strength 4/5. pain over left suprascapular and axillary nerve Neuro Common normals: oriented x3, CN's II-XII intact bilaterally, moves all extremities, no focal motor deficits, no sensory deficits noted and deep tendon reflexes 2+ bilaterally Sensorium/orientation: alert Motor exam: strength 5/5 throughout and no movement abnormalities noted Psych Common normals: mental status grossly normal, thought process normal, cooperative, affect normal, speech normal and activity/motor behavior normal Speech: normal speech Thought process: normal thought process Results Additional Findings Additional findings: If on a controlled substance or opioids, I have checked an [place]AR[place] report on this patient and there are no aberrancies noted in the prescribing history.??If on a controlled substance or opioid a drug screen was completed and reviewed within the last year, and if there has not been a drug screen completed we ordered one today to monitor higher risk, state monitored pain medication use. As part of providing excellent, safe, comprehensive care, the following was completed at our patient's visit: 1. A medication reconciliation and review to ensure accurate knowledge of current/active medications, including asking our patients to inform us about any dojg-hsw-guyztym medications or herbal remedies/nutritional supplements/alternative remedies. 2. A review to specifically ensure our patients have had annual screening for screening for depression, screening for tobacco use, and screening for unhealthy alcohol use. For concerning screenings had a discussion with the patient, provided patient education, and recommended follow-up with primary care provider when appropriate. If patient noted with a risk of falling, they received education on strength, gait, and balance training to prevent future risk of falling. 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
== END 2023-12-02 14:47 | disposition home or self-care (01) ==
LOC: PM 14:46
PROVIDERS: PCP Family Medicine; Visit Provider Nurse Practitioner
DX: M48.02 Spinal stenosis, cervical region (principal); M54.12 Radiculopathy, cervical region; M25.511 Pain in right shoulder; M25.512 Pain in left shoulder; M19.012 Primary osteoarthritis, left shoulder
CPT/HCPCS: G0463

== ENCOUNTER 2023-12-14 06:41 | Day surgery (SDC) | payer OTHER, SELFPAY ==
--- OUTSIDE RECORDS SUMMARY | 2023-12-14 06:43 | XMS_ITS | CCD ---
Author Organization [facility] Care Team Providers Care Plant Specialist Name Role Phone Patsy Negrete Unavailable ADRIAN, DR JASON Falcon Admitting Unavailable SCRUGGS, DR [...] Consulting Unavailable Scruggs DOJason Primary Care Provider [phone] Agueda MILNER, Tatianna Garsia Attending Unavailable Agueda MILNER, Tatianna Garsia Attending Unavailable JR. ALEJANDRA, ERIC Diop Attending Unavaila tony ROBERTS JR., ERIC Diop Referring Unavaila tony ROBERTS JR., ERIC Diop Attending Unavaila DEBI Beltre Attending Unavailable SCRUGGS, JASON Falcon Referring Unavailable SCRUGGS, JASON Falcon Primary Care Unavailable DEBI CLAYTON Referring Unavailable SCRUGGSJASON Primary Care Unavailable Allergies Allergy Classification Reported Allergen(s) Allergy Type Date of Onset Reaction(s) Facility (2 sources) Codeine; Translations: [CODEINE] Drug Allergy 3 [facility] Repository (2 sources) Codeine Drug Allergy 9 Other (See Comments) [facility] Work Phone: Medications Current Medications Medication Drug [...] 12 hrs for 7 days Oct, Active Qjyjtqgxer-JYBT-Pdrf eine (1 source) Butalbital-APAP- Caf feine Active [...] (4 sources) Start: 12-24-2018 End: 10-21-2023 take [id number] tablet by mouth twice daily busPIRone (BUSPAR) [...] by: PETE COPE Date: 2022-10-29 09:18 Normal [facility] MG MAMM SCREEN 3D ANISH CADon 12-18-2021 MG MAMM SCREEN 3D ANISH CAD Patient: LISBETH SÁNCHEZ Exam Date: 12/18/2021 : 1975 Gender:F Ordering : DR JASON SCRUGGS DJessiOJessi Admission #: [id number] Family : Order #: [id number] CLICK HERE TO VIEW EXAM RADIOLOGY REPORT [...] colon,uterine cancer at age 49. LOCATION: [facility] BREAST COMPOSITION: Heterogeneously dense,which may obscure [...] MD on 12/18/2021 at 14:31 Normal [facility] COVID Quick Testingon 2020 Result Negative [facility] Other Vital Signs Date Time Vital Sign Value Performing Clinician Faci lity 10-21-2023 11:03-0400 Body height 157.5 cm Debi HESSC Work Phone: [facility] 10-21-2023 11:03-0400 Body mass index (BMI) [Ratio] 28.83 kg/m2 Debi PLATA-C Work Phone: [facility] 10-21-2023 11:03-0400 Body weight 71.49 kg Debi Clayton PA-C Work Phone: [facility] 10-21-2023 11:03-0400 Diastolic blood pressure 85 mm[Hg] Debi PLATA-C Work Phone: [facility] 10-21-2023 11:03-0400 Heart rate 101 /min Debi HESSC Work Phone: [facility] 10-21-2023 11:03-0400 Systolic blood pressure 167 mm[Hg] Debi PLATA-C Work Phone: [facility] Encounters Encounter Date Encounter Type Care Provider Facility Start: 12-02-2023 End: 12-02-2023 ambulatory JessiERIC Jadon STEPSETH Not Available Start: 2023 End: 11-24-2023 ambulatory Tatianna Romeo MD Facility:[facility] Start: 11-11-2023 End: 11-12-2023 ambulatory JessiERIC Jadon ROBERTS Not Available Start: 11-09-2023 End: 11-10-2023 ambulatory Tatianna Romeo MD Facility:[facility] Start: 10-22-2023 End: 12-09-2023 ambulatory DEBI Diop [facility] Start: 10-21-2023 End: 10-21-2023 ambulatory DEBI C [facility] Start: 10-21-2023 End: 10-21-2023 Office outpatient new 45 minutes Debi Clayton PA-C Work Phone: [facility] Comment on above: Cervical radiculopat hy (Primary Dx); Degenerative disc disease, cervical; Rotator cuff tear arthropathy of right shoulder Start: 10-09-2023 Telephone encounter [facility] Start: 10-29-2022 End: 10-30-[address] JASON SCRUGGS Facility:[facility] Start: 12-18-2021 End: 12-19-[address] JASON SCRUGGS Facility:[facility] Start: 07-03-2021 End: 07-03-2021 ambulatory Patsy Negrete Other [facility] Other Start: 07-03-2021 Office outpatient vi sit 5 minutes Patsy Negrete [facility] Procedures Date Procedure Procedure Detail Performing Clinician Start: 10-21-2023 Adult depression screening assessment Debi Clayton PA-C Work Phone: Plan of Treatment Date Care Activity Detail Author Start: 10-20-2024 Adult BMI Screening Adult BMI Screen ing [facility] Start: 10-20-2024 Depression Screening Depression Scre ening [facility] Start: 10-20-2024 Tobacco Screening Tobacco Screening [facility] Start: 01-27-2024 End: 01-27-2024 Patient encounter procedure 01/27/2024 1:30 PM EDT Office Visit [facility] [address] [facility] [place] [id number] Debi Clayton, CHEN [address] [place] [address] [facility] Start: 11-11-2023 End: 11-11-2023 Patient encounter procedure 11/11/2023 1:45 PM EDT Appointment [facility] [address] [place] [phone] Cervical radiculopathy [facility] Comment on above: Cervical radiculopat hy Start: 10-30-2023 Adult BMI Screening Adult BMI Screen ing [facility] Start: 10-30-2023 Tobacco Screening Tobacco Screening [facility] Start: 10-21-2023 End: 10-21-2023 Patient encounter procedure 10/21/2023 11:00 AM EDT Office Visit [facility] [address] [facility] [place] [phone] Debi Clayton, CHEN [address] [place] [phone] [facility] Start: 04-10-2023 COVID-19 Vaccine ( season) COVID-19 Vaccine ( season) [facility] Start: 04-10-2023 Influenza vaccination Influenza Vacc ine [facility] Start: 1993 DTaP,Tdap and Td Vaccines (1 - Tdap) DTaP,Tdap and Td Vaccines (1 - Tdap) [facility] Start: 1992 Adult BMI Follow Up Plan Adult BMI Follow Up Plan [facility] Start: 1986 Depression Screening Depression Scre ening [facility] Start: 1975 Tobacco Counseling Tobacco Counselin g [facility] Immunizations Immunization Date Immunization Notes Care Provider Fa north 05-09-2021 influenza virus vacc ine, unspecified formulation Shila Son [facility] Payers Date Payer Category Payer Unknown [id number] 1975 Unknown [id number] 2.16.84 [id number] 1975 Unknown [id number] 2.16.84 [id number] 1975 Unknown [id number] 2.16. [id number] 1975 Unknown [id number] 2.16. [id number] 1975 Unknown [id number] 2.16.84 [id number] 1975 Unknown [id number] 2.16.84 [id number] 1975 Unknown [id number] 2.16.84 [id number] 1975 Unknown [id number] 2.16.8 [id number] 1975 Unknown [id number] 2.16.8 [id number] 1960 Unknown [id number] 2.1 [id number] Social History Date Type Detail Facility Unknown if ever smoked [facility] Other Start: 09-20-2020 End: 10-29-2022 Sex Assigned At [employer] Other Start: 11-15-2018 End: 10-21-2023 Tobacco smoking status IDIS Smokes tobacco daily [facility] History of tobacco use Cigarette Smoker P [facility] Start: 11-15-2018 End: 09-20-2020 Cigarettes smoked current (pack per day) - Reported 1 [facility] Start: 11-15-2018 End: 10-21-2023 Tobacco use and exposure Smokeless tobacco non-user [facility] Childcare Unknown [facility] Start: 11-15-2018 Alcohol Comment rare [facility] Start: 1975 Sex Assigned At Not on file P [facility] History of Present illness Narrative 10-21-2023 Debi Clayton PA-C - 10/21/2023 11:00 AM EDT Note Date & Type Note Facility 10-21-2023 History of Present illness Narrative [facility] Office Note 10/21/2023 9:04 AM Patient info: Lisbeth Sánchez is a 47 y.o. female Account No.: [id number] Acct: : 1975 PCP: JASON SCRUGGS DO [...] of the infraspinatus tendon. Intact biceps tendon. Texo-hp-gfhlfxss acromioclavicular osteoarthritis. Moderate glenohumeral osteoarthritis with posterior [...] this encounter [facility] Note 10-09-2023 Telephone Encounter [...] cases) - NO 3. WHAT INSURANCE? - [facility] 4. HAVE YOU EVER BEEN SEEN BY A NEUROLOGIST BEFORE? IF YES, WHO AND WHEN? IS THIS A SECOND OPINION? - YES, DOES NOT REMEMBER 5. PATIENT IS SCHEDULED ON/WITH: - 10/20 AR 11AM WITH DEBI CLAYTON documented in this encounter [facility] Telephone encounter Note 10-09-2023 Telephone Encounter - [...] cases) - NO 3. WHAT INSURANCE? - [facility] 4. HAVE YOU EVER BEEN SEEN BY A NEUROLOGIST BEFORE? IF YES, WHO AND WHEN? IS THIS A SECOND OPINION? - YES, DOES NOT REMEMBER 5. PATIENT IS SCHEDULED ON/WITH: - 10/20 AR 11AM WITH DEBI CLAYTON [facility] Evaluation note 07-03-2021 Note Date & [...] Patient care instructions given in writting by [facility][NOTE 3] Care At Home document. [facility] Other Evaluation note Note Date & Type [...] Medical History fibromyalgia Medical History raynauds syndrome [facility] Other Instructions Note Date & Type Note Facility Instructions Not on filedocumented in this en counter [facility] Instructions Note Date & Type Note Facility Instructions Not on filedocumented in this en counter [facility] Summary Purpose Family History No Family History Records FoundNo Family History Records FoundNo Family History Records FoundNo Family History Records Found Advance Directives No Advanced Directives Records FoundNo Advanced Directives Records FoundNo Advanced Directives Records FoundNo Advanced Directives Records Found Reason for Referral Specialty Diagnoses / Procedures Referred By Oralia t Referred To Contact Rehabilitation Diagnoses Cervical radiculopathy Debi Clayton PA-C [address] [place] [address] [facility] [address] [place] [address] Referral ID Status Reason Start Date Expiration Date V isits Requested Visits Authorized [id number] Closed Specialty Services Required 10/21/2023 10/20/2024 1 1 Additional Source Comments REASON FOR VISIT (unrecogniz ed section and content) Reason Comments Migraine Patient is here toda y as a new patient for DX of Cervical herniated disc, Migraine without status migrainosus, not intractable, unspecified migraine type. Specialty Diagnoses / Procedures Referred By Contabril t Referred To Contact Neurology Diagnoses Migraine without status migrainosus, not intractable, unspecified migraine type Cervical herniated disc Jason Scurggs DO [address] [place] [address] [facility] [address] [place] [address] Referral ID Status Reason Start Date Expiration Date Visits Requested Visits Authorized [id number] Pending Review Specialty Services Required 10/06/2023 10/05/2024 1 1 INFORMATION SOURCE (unrecogn ized section and content) DATE CREATED AUTHOR [facility]/02/2022 [facility] DATE CREATED AUTHOR AUTHOR'S ORGANIZ ATION 12/03/2023 [facility] DATE CREATED AUTHOR AUTHOR'S ORGANIZ ATION 12/03/2023 [facility] EPIC DATE CREATED AUTHOR AUTHOR'S ORGANIZ ATION 12/10/2023 [facility] Care Teams (unrecognized sec tion and content) Plant Specialist Relationship Specialty Start Date End Date Jason Scruggs DO [address] [place] [address] PCP - General Family Medicine 11/08/18 Plant Specialist Relationship Specialty Start Date End Date Jason Scruggs DO [address] [place] [address] PCP - General Family Medicine 11/08/18 FOR [...] BE BASED ON THE PRIMARY CLINICAL RECORDS. [facility]. provides no warranty or guarantee of the accuracy or completeness of information in this document.
[2023-12-14 06:50] VITALS: BP 128/87; PULSE 94; TEMP 36.4; O2SAT 98
[2023-12-14 07:44] VITALS: BP 129/67; BP 130/73; PULSE 86; O2SAT 97
--- NOTE | 2023-12-14 07:44 | W.PM.PROCNOT ---
Date of procedure: 12/14/23 Pre-op diagnosis: Left shoulder osteoarthritis Post-op diagnosis: same as pre-op Procedure: Procedure: Left suprascapular and axillary nerve block Medications: Bupivacaine 0.25% 3cc, kenalog 40mg The patient was seen and examined in the preoperative holding area. Informed consent was obtained and placed on the chart.? The patient was brought to the medical procedure unit and placed in the prone position. A timeout was completed verifying correct patient, procedure site, positioning, plan, and special equipment.? Using aseptic technique, under direct fluoroscopic visualization, a 25-gauge 3-1/2 inch spinal needle was advanced to the superior portion of the left posterior osseous rim of the glenoid fossa, lateral and superior to the spinal glenoid notch.? 0.5 cc of the above solution was injected.? The needle was then redirected 3 mm inferiorly and another 0.5 cc of the above medication was injected.? This needle was then removed.? Using aseptic technique, under direct fluoroscopic visualization, another 25-gauge 3-1/2 inch spinal needle was advanced toward the most inferior and lateral border of the greater tubercle.? 0.5 cc of the above medication was administered.? The needle was then redirected 3 mm inferiorly.? 0.5 cc was administered in this region.? This needle was removed.? The same procedure, with the same steps, was then repeated on the opposite side.? ? The patient was taken to the postprocedural recovery area and monitored for an appropriate length of time before being found suitable for discharge in the accompaniment of a responsible adult. Anesthesia: Local Surgeon: Tatianna Romeo Pathology: none sent Condition: stable Disposition: no change
[2023-12-14] MEDS: BUPIVACAINE HCL 0.25% PF 25 MG/10 ML VIAL INJ (07:47)
[2023-12-14] MEDS: IOHEXOL 240 MG/ML - 10 ML VIAL 24 MG INJ (07:47)
[2023-12-14] MEDS: LIDOCAINE HCL 2% PF 100 MG/5 ML VIAL 6 ML INJ (07:48)
[2023-12-14] MEDS: TRIAMCINOLONE ACETONIDE 40 MG/ML VIAL INJ (07:48)
== END 2023-12-14 07:48 | disposition home or self-care (01) ==
PROVIDERS: PCP Family Medicine; Visit Provider Anesthesiology
DX: M19.012 Primary osteoarthritis, left shoulder (principal)
CPT/HCPCS: 64417; 64418; Q9966

== ENCOUNTER 2023-12-23 12:20 | Outpatient (OUT) | payer OTHER, SELFPAY ==
--- OUTSIDE RECORDS SUMMARY | 2023-12-23 12:24 | XMS_ITS | CCD ---
Author Organization [facility] Care Team Providers Care Electrical Assembly Technician Name Role Phone Patsy Negrete Unavailable ADRIAN, DR JASON Falcon Admitting Unavailable SCRUGGS, DR JASON Falcon Attending Unavailable SCRUGGS, DR JASON Falcon Primary Care Unavailable WEST, DR ALEXA Rodriguez Consulting Unavailable SCRUGGS, DR JASON Falcon Consulting Unavailable SCRUGGS, DR JASON Falcon Admitting Unavailable SCRUGGS, DR JASON Falcon Attending Unavailable SCRUGGS, DR JASNO Falcon Primary Care Unavailable SCRUGGS, DR JASON Falcon Consulting Unavailable ZIEBER, DR PETE Saab Consulting Unavailable Scruggs DOJason Primary Care Provider [phone] JR. ALEJANDRA, ERIC Diop Attending Unavaila tony ROBERTS JR., ERIC Diop Referring Unavaila tony ROBERTS JR., ERIC Diop Attending Unavaila ble DEBI GALEAS Attending Unavailable SCRUGGS, JASON Falcon Referring Unavailable SCRUGGS, JASON Falcon Primary Care Unavailable DEBI GALEAS Referring Unavailable SCRUGGSJASON Primary Care Unavailable Agueda MILNER, Tatianna Garsia Attending Unavailable Agueda MILNER, Tatianna Garsia Attending Unavailable Agueda MILNER, Tatianna Garsia Attending Unavailable Allergies Allergy Classification Reported Allergen(s) Allergy Type Date of Onset Reaction(s) Facility (2 sources) Codeine; Translations: [CODEINE] Drug Allergy 3 [facility] Repository (2 sources) Codeine Drug Allergy 9 Other (See Comments) [employer] Work Phone: Medications Current Medications Medication Drug [...] 12 hrs for 7 days Oct, Active Iptzfignrz-GUWU-Nggm eine (1 source) Butalbital-APAP- Caf feine Active [...] (4 sources) Start: 12-24-2018 End: 10-21-2023 take [id number] tablet by mouth twice daily busPIRone (BUSPAR) [...] Facil ity MRI CSPINE WO CONon 10-30-19 23 MRI CSPINE WO CON EXAMINATION: MRI CSPINE [...] by: PETE COPE Date: 2022-10-29 09:18 Normal [facility] MG MAMM SCREEN 3D ANISH CADon 12-18-2021 MG MAMM SCREEN 3D ANISH CAD Patient: LISBETH SÁNCHEZ Exam Date: 12/18/2021 : 1975 Gender:F Ordering : DR JASON SCRUGGS DJessiOJessi Admission #: [id number] Family : Order #: [id number] CLICK HERE TO VIEW EXAM RADIOLOGY REPORT [...] colon,uterine cancer at age 49. LOCATION: [facility] BREAST COMPOSITION: Heterogeneously dense,which may obscure [...] MD on 12/18/2021 at 14:31 Normal [facility] [employer] Quick Testingon 2020 Result Negative [email or web address] Other Vital Signs Date Time Vital Sign Value Performing Clinician Faci lity 10-21-2023 11:03-0400 Body height 157.5 cm Debi Galeas PA-C Work Phone: [employer] 10-21-2023 11:03-0400 Body mass index (BMI) [Ratio] 28.83 kg/m2 Debi Galeas PA-C Work Phone: [employer] 10-21-2023 11:03-0400 Body weight 71.49 kg Debi Galeas PA-C Work Phone: [employer] 10-21-2023 11:03-0400 Diastolic blood pressure 85 mm[Hg] Debi Galeas PA-C Work Phone: [employer] 10-21-2023 11:03-0400 Heart rate 101 /min Debi Galeas PA-C Work Phone: [employer] 10-21-2023 11:03-0400 Systolic blood pressure 167 mm[Hg] Debi Galeas PA-C Work Phone: [facility] Encounters Encounter Date Encounter Type Care Provider Facility Start: 12-14-2023 End: 12-15-2023 ambulatory [facility] Start: 12-02-2023 End: 12-02-2023 ambulatory ERIC FREEMAN Not Available Start: 2023 End: 11-24-2023 ambulatory Tatianna Romeo MD Facility:[facility] Start: 11-11-2023 End: 11-12-2023 ambulatory ERIC FREEMAN Not Available Start: 11-09-2023 End: 11-10-2023 ambulatory Tatianna Romeo MD Facility:[facility] Start: 10-22-2023 End: 12-09-2023 ambulatory [facility] Start: 10-21-2023 End: 10-21-2023 ambulatory [facility] Start: 10-21-2023 End: 10-21-2023 Office outpatient new 45 minutes Debi Galeas PA-C Work Phone: [facility] Comment on above: Cervical radiculopat hy (Primary Dx); Degenerative disc disease, cervical; Rotator cuff tear arthropathy of right shoulder Start: 10-09-2023 Telephone encounter [facility] Start: 10-29-2022 End: 10-30-[address] JASON SCRUGGS Facility:[facility] Start: 12-18-2021 End: 12-19-[address] JASON SCRUGGS Facility:[facility] Start: 07-03-2021 End: 07-03-2021 ambulatory Patsy Negrete Other [email or web address] Other Start: 07-03-2021 Office outpatient vi sit 5 minutes Patsy Negrete [facility] Procedures Date Procedure Procedure Detail Performing Clinician Start: 10-21-2023 Adult depression screening assessment Debi Galeas PA-C Work Phone: Plan of Treatment Date Care Activity Detail Author Start: 10-20-2024 Adult BMI Screening Adult BMI Screen ing [facility] Start: 10-20-2024 Depression Screening Depression Scre ening [facility] Start: 10-20-2024 Tobacco Screening Tobacco Screening [facility] Start: 01-27-2024 End: 01-27-2024 Patient encounter procedure 01/27/2024 1:30 PM EDT Office Visit [facility] [address] [facility] [place] [phone] Debi Galeas PA-C [address] [place] [phone] [facility] Start: 11-11-2023 End: 11-11-2023 Patient encounter procedure 11/11/2023 1:45 PM EDT Appointment [facility] [address] [place] [phone] Cervical radiculopathy [facility] Comment on above: Cervical radiculopat hy Start: 10-30-2023 Adult BMI Screening Adult BMI Screen ing [facility] Start: 10-30-2023 Tobacco Screening Tobacco Screening [facility] Start: 10-21-2023 End: 10-21-2023 Patient encounter procedure 10/21/2023 11:00 AM EDT Office Visit [facility] [address] [place] [phone] Debi Galeas PA-C [address] [place] [phone] [facility] Start: 04-10-2023 COVID-19 Vaccine ( season) COVID-19 Vaccine ( season) [facility] Start: 04-10-2023 Influenza vaccination Influenza Vacc ine [facility] Start: 1993 DTaP,Tdap and Td Vaccines (1 - Tdap) DTaP,Tdap and Td Vaccines (1 - Tdap) [facility] Start: 1992 Adult BMI Follow Up Plan Adult BMI Follow Up Plan [facility] Start: 1986 Depression Screening Depression Scre mani [facility] Start: 1975 Tobacco Counseling Tobacco Counselin carleen [facility] Immunizations Immunization Date Immunization Notes Care Provider Vanessa kat 05-09-2021 influenza virus vacc ine, unspecified formulation Shila Son [facility] Payers Date Payer Category Payer Unknown [id number] 1975 Unknown [id number] 2.16.84 [id number] 1975 Unknown [id number] 2.16.84 [id number] 1975 Unknown [id number] 2.16.84 [id number] 1975 Unknown [id number] 2.16.84 [id number] 1975 Unknown [id number] 2.16.84 [id number] 1975 Unknown [id number] 2.16.8 [id number] 1975 Unknown [id number] 2.16.8 [id number] 1975 Unknown [id number] 2.16. [id number] 1975 Unknown [id number] 2.16. [id number] 1975 Unknown [id number] 2.16. [id number] 1960 Unknown [id number] 2.1 [id number] Social History Date Type Detail Facility Unknown if ever smoked [email or web address] Other Start: 09-20-2020 End: 10-29-2022 Sex Assigned At [facility] [employer] Other Start: 11-15-2018 End: 10-21-2023 Tobacco smoking status NHIS Smokes tobacco daily [facility] History of tobacco use Cigarette Smoker P [facility] Start: 11-15-2018 End: 09-20-2020 Cigarettes smoked current (pack per day) - Reported 1 [facility] Start: 11-15-2018 End: 10-21-2023 Tobacco use and exposure Smokeless tobacco non-user [facility] Childcare Unknown [facility] Start: 11-15-2018 Alcohol Comment rare [facility] Start: 1975 Sex Assigned At Not on file P [facility] History of Present illness Narrative 10-21-2023 Debi Galeas PA-C - 10/21/2023 11:00 AM EDT Note Date & Type Note Facility 10-21-2023 History of Present illness Narrative [facility] Office Note 10/21/2023 9:04 AM Patient info: Lisbeth Sánchez is a 47 y.o. female Account No.: [id number] Acct: : 1975 PCP: JASON SCRUGGS DO [...] of the infraspinatus tendon. Intact biceps tendon. Oxbj-le-vleyryqe acromioclavicular osteoarthritis. Moderate glenohumeral osteoarthritis with posterior [...] Electronically Signed by: Debi Galeas PA-C 10/22/23 09 documented in this encounter [employer] [facility] Note 10-09-2023 Telephone Encounter - Shila [...] cases) - NO 3. WHAT INSURANCE? - [facility] 4. HAVE YOU EVER BEEN SEEN BY A NEUROLOGIST BEFORE? IF YES, WHO AND WHEN? IS THIS A SECOND OPINION? - YES, DOES NOT REMEMBER 5. PATIENT IS SCHEDULED ON/WITH: - 10/20 AR 11AM WITH DEBI GALEAS [facility] encounter Note 10-09-2023 Telephone Encounter [...] cases) - NO 3. WHAT INSURANCE? - [facility] 4. HAVE YOU EVER BEEN SEEN BY A NEUROLOGIST BEFORE? IF YES, WHO AND WHEN? IS THIS A SECOND OPINION? - YES, DOES NOT REMEMBER 5. PATIENT IS SCHEDULED ON/WITH: - 10/20 AR 11AM WITH DEBI GALEAS [facility] [employer] [facility] Evaluation note 07-03-2021 Note Date & [...] Patient care instructions given in writting by [facility] At Home document. [email or web address] Other Evaluation note Note Date & Type Note Facility Evaluation note Diagnosis Cervical radiculopathy- Primary Brachial neuritis or radiculitis nos Degenerative disc disease, cervical Rotator cuff tear arthropathy of right shoulder Cervical radiculopathy Brachial neuritis or radiculitis nos documented in this encounter [facility] History general Narrative - Reported Note Date & Type Note Facility History general Narrative - Reported Type Medical History migraine headache Medical History back pain Medical History fibromyalgia Medical History raynauds syndrome [email or web address] Other Instructions Note Date & Type Note Facility Instructions Not on filedocumented in this en counter [facility] Instructions Note Date & Type Note Facility Instructions Not on filedocumented in this en counter [facility] Summary Purpose Family History No Family History Records FoundNo Family History Records FoundNo Family History Records FoundNo Family History Records Found Advance Directives No Advanced Directives Records FoundNo Advanced Directives Records FoundNo Advanced Directives Records FoundNo Advanced Directives Records Found Reason for Referral Specialty Diagnoses / Procedures Referred By Contabril ford Referred To Contact Rehabilitation Diagnoses Cervical radiculopathy Debi Galeas PA-C [address] [place] [address] [facility] [address] [place] [address] Referral ID Status Reason Start Date Expiration Date V isits Requested Visits Authorized [id number] Closed Specialty Services Required 10/21/2023 10/20/2024 1 [...] herniated disc Jason Scruggs DO [address] [place] [address] [facility] [address] [place] [address] Referral ID Status Reason Start Date Expiration Date Visits Requested Visits Authorized [id number] Pending Review Specialty Services Required 10/06/2023 10/05/2024 1 1 INFORMATION SOURCE (unrecogn ized section and content) DATE CREATED AUTHOR [facility] DATE CREATED AUTHOR AUTHOR'S ORGANIZ ATION 12/03/2023 [facility] EPIC DATE CREATED AUTHOR AUTHOR'S ORGANIZ ATION 12/10/2023 [facility] DATE CREATED AUTHOR AUTHOR'S ORGANIZ ATION 12/20/2023 [facility] Care Teams (unrecognized sec tion and content) Electrical Assembly Technician Relationship Specialty Start Date End Date Jason Scruggs DO [address] [place] [address] PCP - General Family Medicine 11/08/18 Electrical Assembly Technician Relationship Specialty Start Date End Date Jason Scruggs DO [address] [place] [address] PCP - General Family Medicine 11/08/18 FOR [...] BE BASED ON THE PRIMARY CLINICAL RECORDS. [facility]. provides no warranty or guarantee of the accuracy or completeness of information in this document.
--- NOTE | 2023-12-23 13:05 | P.CN_ITS ---
Consult Note: HPI Data of Consult Patient: known to practice within the last 3 years Consult date: 10/28/23 Requesting Physician: Katherine Hobbs NP Primary Care Provider: JOLENE SCRUGGS, DO Consult Narrative Reason for consult: f/u Narrative: Chrissie tobar pleasant 47 year old female presents for evaluation and m anagement of chronic neck pain and hx of bilateral shoulder pain, worsening since April of 2023. Today pain 5/10 constant increasing to 10/10, worse with pushing pulling activity, any movement of arms. Failed gabapentin in the past had side effects, lyrica has been beneficial but caused 30lb weight gain in 6 weeks, now started on trileptal 300mg BID by neurology but they told her to f/u with PCP/pain management. Unable to continue PT/HEP due to severe pain and weakness. Patient has a rotator cuff tear to right shoulder, see imaging report below. See imaging below for cervical MRI results, consistent with stenosis and radiculopathy. Patient now scheduled for right shoulder surgery in march with Dr Castellanos. Recently underwent left suprascapular and axillary NB with greater than 80% improvement initially, reports mild ongoing improvement. Would like to discuss RFA. cc:: CC: Katherine Hobbs NP Review of Systems ROS Status of ROS 10 or more systems reviewed and unremark able except as noted in history and below Musculoskeletal Reports: back pain, neck pain, extremity pain and joint pain PFSH PFSH Medical History Hypothyroid ?E03.9 - Hypothyroidism, unspecified (ICD-10) Osteoarthritis ?M19.90 - Unspecified osteoarthritis, unspecified site (ICD-10) Fibromyalgia ?M79.7 - Fibromyalgia (ICD-10) Raynauds disease ?I73.00 - Raynaud's syndrome without gangrene (ICD-10) Anxiety ?F41.9 - Anxiety disorder, unspecified (ICD-10) Carpal tunnel syndrome ?G56.00 - Carpal tunnel syndrome, unspecified upper limb (ICD-10) Acid reflux ?K21.9 - Gastro-esophageal reflux disease without esophagitis (ICD-10) History of smoking at least 1 pack per day for at least 30 years ?Z87.891 - Personal history of nicotine dependence (ICD-10) Surgical History H/O tubal ligation ?Z98.51 - Tubal ligation status (ICD-10) H/O: hysterectomy ?Z90.710 - Acquired absence of both cervix and uterus (ICD-10) Social History Smoking status: Current every day smoker 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 Highest level of school completed/degree received: Associate degree: academic program Are you now , , , , never or living with a partner: In a typical week, how many times do you talk on the telephone with family, friends, or neighbors: 3 or more times per week How often do you get together with friends or relatives: twice per week How often do you attend yazdanism or sikh services: never Do you belong to any clubs or organizations such as yazdanism groups unions, [employer] or athletic groups, or school groups: no Total score: 2 Score interpretation: A score of greater than or equal to 2 indicates the lowest level of social isolation. Little interest or pleasure in doing things: several days Feeling down, depressed, or hopeless: several days Feel stressed/tense/nervous/anxious/difficulty sleeping: very much Life stressors: divorce/separation, loss of job and financial matters Do you think of yourself as: straight/heterosexual Gender Identity: female Meds Home Medications and Allergies Home Medications ?Medication ?Instructions ?Recorded ?Confirmed ?Type etodolac 400 mg tablet 400 mg PO DAILY 02/19/23 12/14/23 History milnacipran 25 mg tablet (Savella) 100 mg PO BID 02/19/23 12/14/23 History cgqrqbnein-bzqzfrmbuwbtd-zkgwvkmp 1 cap PO DAILY PRN pain 10/28/23 12/14/23 History 50 mg-300 mg-40 mg capsule (Fioricet) cyclobenzaprine 10 mg tablet 10 mg PO Q12H 10/28/23 12/14/23 History esomeprazole magnesium 40 mg 40 mg PO DAILY 10/28/23 12/14/23 History capsule,delayed release (Nexium) nifedipine 20 mg capsule 60 mg PO BID 10/28/23 12/14/23 History oxcarbazepine 150 mg tablet 150 mg PO DAILY 10/28/23 12/14/23 History (Trileptal) pregabalin 50 mg capsule 50 mg PO Q12H PRN SHOOTING PAIN 10/28/23 12/14/23 History Allergies Allergy/AdvReac Type Severity Reaction Status Date / Time codeine Allergy tremors Verified 12/14/23 06:52 Exam Constitutional Documenting provider has reviewed patient's vital signs: yes Common normals: no apparent distress, oriented x3, healthy appearing, alert and well nourished General appearance: cooperative HENMT Common normals: normocephalic, hearing grossly normal bilaterally and moist oral mucous membranes Head and scalp: normocephalic Eye Common normals: PERRL Pupil: PERRL Neck & C-Spine Common normals: full ROM General: normal visual inspection Cervical spine: pain with cervical ROM, cervical spine tenderness and paracervical muscle tenderness Other: positive spurlings decreased sensation in left C5-6 pattern Chest Common normals: inspection of chest normal Respiratory Common normals: normal respiratory effort, no retractions and no use of accessory muscles Extremity Right upper extremity: shoulder joint Left upper extremity: shoulder joint Other: severe limitation to ROM of right shoulder, unable to lift arm. strength 3/5. decreased sensation noted Left Shoulder: mild to moderate pain with ROM, negative crossbody test, negative empty can, negative lift off test, strength 4/5. pain over left suprascapular and axillary nerve Neuro Common normals: oriented x3, CN's II-XII intact bilaterally, moves all ex tremities, no focal motor deficits, no sensory deficits noted and deep tendon reflexes 2+ bilaterally Sensorium/orientation: alert Motor exam: strength 5/5 throughout and no movement abnormalities noted Psych Common normals: mental status grossly normal, thought process normal, cooperative, affect normal, speech normal and activity/motor behavior normal Speech: normal speech Thought process: normal thought process Results Imaging shoulder MRI: Attestation: I have reviewed the pertinent imaging results. Radiologist's impression: Right shoulder: The acromioclavicular joint is congruent with mild joint space narrowing capsular hypertrophy. No significant narrowing of supraspinatus outlet. Fluid within the subacromial subdeltoid bursa is nonspecific incidental full-thickness rotator cuff tear. Superimposed on tendinosis, there is full-thickness, fullwidth tear of the supraspinatus tendon with proximal retraction to the humeral dome. The tear propagates into the infraspinatus tendon as intermediate to high-grade near full width partial tearing. The teres minor tendon is intact. The subscapularis tendon is mildly thickened with intermediate signal consistent with tendinosis. No tear. Atrophy of the supraspinatus and infraspinatus muscles. The extracapsular biceps tendon is within the bicipital groove. Intracapsular biceps tendon is normal. The humerus is centered on the glenoid. The glenohumeral articular cartilage demonstrates intermediate grade chondrosis. There is posterior superior labral degeneration versus remote SLAP tear. Small joint effusion. The bone marrow signal is without fracture. The quadrilateral space is patent. No axillary lymphadenopathy. Left shoulder: The acromioclavicular joint is congruent with mild joint space narrowing, capsular hypertrophy and subchondral edema/cystic changes. Inferior marginal osteophytes narrow the supraspinatus outlet. Small amount of fluid is present in the subacromial subdeltoid bursa. There is mild thickening and intermediate signal of the supraspinatus and supraspinatus tendons consistent with tendinosis. Low-grade bursal sided fraying central cuff. No tear identified. The teres minor tendon is intact. The subscapularis tendon is intact. The exit capsular biceps tendon is within the bicipital groove. Intracapsular biceps tendon is normal. The rotator cuff musculature demonstrates symmetric bulk and signal. The humerus is centered on the glenoid. Intermediate grade chondrosis. Posterior superior labral degeneration. No joint effusion. The bone marrow signal is without fracture. The quadrilateral space is patent. No axillary lymphadenopathy. cervical MRI: Attestation: I have reviewed the pertinent imaging results. Radiologist's impression: Cervical spine alignment normal. No subluxation. Signal in the bone marrow space is normal. No bone marrow edema. No suspicious osseous lesions. C2-C3, no spinal stenosis. No foraminal narrowing. C3-C4, mild degenerative disc disease is stable. No spinal stenosis or foraminal narrowing. This level is stable. C4-C5, severe degenerative disc disease. Endplate osteophyte complex results in mild spinal stenosis. Uncovertebral osteophytes result in moderate bilateral foraminal narrowing. This level is stable. C5-C6, severe degenerative disc disease. There is mild spinal canal stenosis. Uncovertebral osteophyte on the left results in severe left neural foraminal narrowing which is stable. C6-C7, mild degenerative disc disease. Diffuse disc bulge. No spinal stenosis. No significant foraminal narrowing. This level is stable. C7-T1, no spinal stenosis. No foraminal narrowing. No spinal cord compression. No abnormal signal in the cervical spinal cord. Additional Findings Additional findings: If on a controlled substance or opioids, I have checked an [place]ARRS report on this patient and there are no aberrancies noted in the prescribing history.??If on a controlled substance or opioid a drug screen was completed and reviewed within the last year, and if there has not been a drug screen completed we ordered one today to monitor higher risk, state monitored pain medication use. As part of providing excellent, safe, comprehensive care, the following was completed at our patient's visit: 1. A medication reconciliation and review to ensure accurate knowledge of current/active medications, including asking our patients to inform us about any jhlc-xlv-nigprjf medications or herbal remedies/nutritional supplements/ alternative remedies. 2. A review to specifically ensure our patients have had annual screening for screening for depression, screening for tobacco use, and screening for unhealthy alcohol use. For concerning screenings had a discussion with the patient, provided patient education, and recommended follow-up with primary care provider when appropriate. If patient noted with a risk of falling, they received education on strength, gait, and balance training to prevent future risk of falling. Assessment and Plan Assessment and Plan (1) Cervical spinal stenosis: (2) Cervical radiculopathy: (3) Bilateral shoulder pain: (4) Osteoarthritis of left shoulder: (5) Suprascapular entrapment neuropathy of left side: Plan left suprascapular and axillary nerve RFA for chronic left shoulder pain/OA continue medications through PCP, utilizing lyrica 50mg as needed for moderate to severe pain encouraged f/u with orthopedics for bilateral shoulder pain right greater than left, right shoulder surgery 04/02 previously declined NS referral for cervical stenosis, cervical radiculopathy but now interested. Patient will call back with a preferred physician/office f/u 1 month after RFA
== END 2023-12-23 12:21 | disposition home or self-care (01) ==
LOC: PM 12:20
PROVIDERS: PCP Family Medicine; Visit Provider Nurse Practitioner
DX: M48.02 Spinal stenosis, cervical region (principal); M54.12 Radiculopathy, cervical region; M25.511 Pain in right shoulder; M25.512 Pain in left shoulder; M19.012 Primary osteoarthritis, left shoulder
CPT/HCPCS: G0463

== ENCOUNTER 2024-01-11 06:53 | Day surgery (SDC) | payer OTHER, SELFPAY ==
--- OUTSIDE RECORDS SUMMARY | 2024-01-11 06:56 | XMS_ITS | CCD ---
Author Organization [facility] Care Team Providers Care Nursing Manager Name Role Phone Patsy Negrete Unavailable SCRUGGS, [...] Consulting Unavailable Scruggs DOJason Primary Care Provider JR. ALEJANDRA, ERIC Diop Attending Unavaila tony ROBERTS JR., ERIC Diop Referring Unavaila tony ROBERTS JR., ERIC Diop Attending Unavaila DEBI Beltre Attending Unavailable SCRUGGS, JASON Falcon Referring Unavailable SCRUGGS, JASON Falcon Primary Care Unavailable DEBI CLAYTON Referring Unavailable SCRUGGSJASON Primary Care Unavailable Agueda MILNER, Tatianna Garsia Attending Unavailable Agueda MILNER, Tatianna Garsia Attending Unavailable Agueda MILNER, Tatianna Garsia Attending Unavailable Allergies Allergy Classification Reported Allergen(s) Allergy Type Date of Onset Reaction(s) Facility (2 sources) Codeine; Translations: [CODEINE] Drug Allergy 3 [facility] Repository (2 sources) Codeine Drug Allergy 9 Other (See Comments) [employer] Work Phone: Medications Current Medications Medication Drug [...] 12 hrs for 7 days Oct, Active Nugcpdinsd-JNHY-Qbdr eine (1 source) Butalbital-APAP- Caf feine Active [...] (4 sources) Start: 12-24-2018 End: 10-21-2023 take [id number] tablet by mouth twice daily busPIRone (BUSPAR) [...] by: PETE COPE Date: 2022-10-29 09:18 Normal [facility] MG MAMM SCREEN 3D ANISH CADon 12-18-2021 MG MAMM SCREEN 3D ANISH CAD Patient: LISBETH SÁNCHEZ Exam Date: 12/18/2021 : 1975 Gender:F Ordering : DR JASON SCRUGGS DJessiOJessi Admission #: [id number] Family : Order #: [id number] CLICK HERE TO VIEW EXAM RADIOLOGY REPORT [...] colon,uterine cancer at age 49. LOCATION: [facility] BREAST COMPOSITION: Heterogeneously dense,which may obscure [...] MD on 12/18/2021 at 14:31 Normal [facility] COVID Quick Testingon 2020 Result Negative [employer] Other Vital Signs Date Time Vital Sign Value Performing Clinician Faci lity 10-21-2023 11:03-0400 Body height 157.5 cm Debi Clayton PA-C Work Phone: [employer] 10-21-2023 11:03-0400 Body mass index (BMI) [Ratio] 28.83 kg/m2 Debi Clayton PA-C Work Phone: [employer] 10-21-2023 11:03-0400 Body weight 71.49 kg Debi Clayton PA-C Work Phone: [employer] 10-21-2023 11:03-0400 Diastolic blood pressure 85 mm[Hg] Debi Clayton PA-C Work Phone: [employer] 10-21-2023 11:03-0400 Heart rate 101 /min Debi Clayton PA-C Work Phone: [employer] 10-21-2023 11:03-0400 Systolic blood pressure 167 mm[Hg] Debi Clayton PA-C Work Phone: [facility] Encounters Encounter Date Encounter Type Care Provider Facility Start: 12-14-2023 End: 12-15-2023 ambulatory Tatianna Romeo MD Facility: [facility] Start: 12-02-2023 End: 12-02-2023 ambulatory ERIC FREEMAN Not Available Start: 2023 End: 11-24-2023 ambulatory Tatianna Romeo MD Facility: [facility] Start: 11-11-2023 End: 11-12-2023 ambulatory ERIC FREEMAN Not Available Start: 11-09-2023 End: 11-10-2023 ambulatory Tatianna Romeo MD Facility:[facility] Start: 10-22-2023 End: 12-09-2023 ambulatory DEBI Diop [facility] Start: 10-21-2023 End: 10-21-2023 ambulatory [facility] Start: 10-21-2023 End: 10-21-2023 Office outpatient new 45 minutes Debi Clayton PA-C Work Phone: [facility] Comment on above: Cervical radiculopat hy (Primary Dx); Degenerative disc disease, cervical; Rotator cuff tear arthropathy of right shoulder Start: 10-09-2023 Telephone encounter [facility] Start: 10-29-2022 End: 10-30-[address] JASON SCRUGGS Facility:[facility] Start: 12-18-2021 End: 12-19-[address] JASON SCRUGGS Facility:[facility] Start: 07-03-2021 End: 07-03-2021 ambulatory Patsy Negrete Other [employer] Other Start: 07-03-2021 Office outpatient vi sit 5 minutes Patsy Negrete [facility] Procedures Date Procedure Procedure Detail Performing Clinician Start: 10-21-2023 Adult depression screening assessment Debi Clayton PA-C Work Phone: Plan of Treatment Date Care Activity Detail Author Start: 10-20-2024 Adult BMI Screening Adult BMI Screen ing [facility] Start: 10-20-2024 Depression Screening Depression Scre ening [facility] Start: 10-20-2024 Tobacco Screening Tobacco Screening [facility] Start: 01-27-2024 End: 01-27-2024 Patient encounter procedure 01/27/2024 1:30 PM EDT Office Visit [facility] [address] [place] [phone] Debi Clayton, CHEN [address] [place] [phone] [facility] Start: 11-11-2023 End: 11-11-2023 Patient encounter procedure 11/11/2023 1:45 PM EDT Appointment [facility] [address] [place] [phone] Cervical radiculopathy [facility] Comment on above: Cervical radiculopat hy Start: 10-30-2023 Adult BMI Screening Adult BMI Screen ing [facility] Start: 10-30-2023 Tobacco Screening Tobacco Screening [facility] Start: 10-21-2023 End: 10-21-2023 Patient encounter procedure 10/21/2023 11:00 AM EDT Office Visit [facility] [address] [place] [phone] Debi Clayton PA-C [address] [place] [phone] [facility] Start: 04-10-2023 COVID-19 Vaccine ( season) COVID-19 Vaccine ( season) [facility] Start: 04-10-2023 Influenza vaccination Influenza Vacc ine [facility] Start: 1993 DTaP,Tdap and Td Vaccines (1 - Tdap) DTaP,Tdap and Td Vaccines (1 - Tdap) [facility] Start: 1992 Adult BMI Follow Up Plan Adult BMI Follow Up Plan [facility] Start: 1986 Depression Screening Depression Scre mani [facility] Start: 1974 Tobacco Counseling Tobacco Counselin carleen [facility] Immunizations Immunization Date Immunization Notes Care Provider Fa north 05-09-2021 influenza virus vacc ine, unspecified formulation Shila Son [facility] Payers Date Payer Category Payer Unknown [id number] 1975 Unknown [id number] 2.16.84 [id number] 1975 Unknown [id number] 2.16.84 [id number] 1975 Unknown [id number] 2.16.84 [id number] 1975 Unknown [id number] 2.16.84 [id number] 1975 Unknown [id number] 2.16.84 [id number] 1975 Unknown [id number] 2.16.8 [id number] 1975 Unknown [id number] 2.16.8 [id number] 1975 Unknown [id number] 2.16. [id number] 1975 Unknown [id number] 2.16. [id number] 1975 Unknown [id number] 2.16. [id number] 1960 Unknown [id number] 2.1 [id number] Social History Date Type Detail Facility Unknown if ever smoked [employer] Other Start: 09-20-2020 End: 10-29-2022 Sex Assigned At [facility] [employer] Other Start: 11-15-2018 End: 10-21-2023 Tobacco smoking status NHIS Smokes tobacco daily [facility] History of tobacco use Cigarette Smoker P [facility] Start: 11-15-2018 End: 09-20-2020 Cigarettes smoked current (pack per day) - Reported 1 [facility] Start: 11-15-2018 End: 10-21-2023 Tobacco use and exposure Smokeless tobacco non-user [facility] Childcare Unknown [facility] Start: 11-15-2018 Alcohol Comment rare [facility] Start: 1975 Sex Assigned At Not on file P [facility] History of Present illness Narrative 10-21-2023 Debi Clayton PA-C - 10/21/2023 11:00 AM EDT Note Date & Type Note Facility 10-21-2023 History of Present illness Narrative [facility] Office Note 10/21/2023 9:04 AM Patient info: Lisbeth Sánchez is a 47 y.o. female Account No.: [id number] Acct: : 1975 PCP: JASON SCRUGGS DO Chief Complaint: Patient, 47 year old female, presents today for initial Neurological evaluation regarding headaches. Referred by Dr. Scruggs DO Lisbeth is present in the office today [...] of the infraspinatus tendon. Intact biceps tendon. Mymk-pf-gdgselbz acromioclavicular osteoarthritis. Moderate glenohumeral osteoarthritis with posterior [...] PA-C 10/22/23 0901 [facility] 10-09-2023 Telephone Encounter - Shila [...] cases) - NO 3. WHAT INSURANCE? - [facility] 4. HAVE YOU EVER BEEN SEEN BY A NEUROLOGIST BEFORE? IF YES, WHO AND WHEN? IS THIS A SECOND OPINION? - YES, DOES NOT REMEMBER 5. PATIENT IS SCHEDULED ON/WITH: - 10/20 AR 11AM WITH DEBI CLAYTON documented in this encounter [facility] Telephone encounter Note 10-09-2023 Telephone Encounter [...] cases) - NO 3. WHAT [facility]UR[facility]? - [facility] 4. HAVE YOU EVER BEEN SEEN BY A NEUROLOGIST BEFORE? IF YES, WHO AND WHEN? IS THIS A SECOND OPINION? - YES, DOES NOT REMEMBER 5. PATIENT IS SCHEDULED ON/WITH: - 10/20 AR 11AM WITH [facility]LAYTON [facility] note 07-03-2021 Note Date & [...] Patient care instructions given in writting by [facility] document. [employer] Other Evaluation note Note Date & Type [...] Medical History fibromyalgia Medical History raynauds syndrome [employer] Other Instructions Note Date & Type Note [...] Cervical radiculopathy Debi Clayton PA-C [address] [place] [phone] [facility] [address] [place] [phone] Referral ID Status Reason Start Date Expiration Date V isits Requested Visits Authorized [id number] Closed Specialty Services Required 10/21/2023 10/20/2024 1 [...] herniated disc Jason Scruggs DO [address] [place] [address] [facility] [address] [place] [address] Referral ID Status Reason Start Date Expiration Date Visits Requested Visits Authorized [id number] Pending Review Specialty Services Required 10/06/2023 10/05/2024 1 1 INFORMATION SOURCE (unrecogn ized section and content) DATE CREATED AUTHOR [facility]2022 [facility] DATE CREATED AUTHOR AUTHOR'S ORGANIZ ATION 12/03/2023 [facility] EPIC DATE CREATED AUTHOR AUTHOR'S ORGANIZ ATION 12/10/2023 [facility] DATE CREATED AUTHOR AUTHOR'S ORGANIZ ATION 12/20/2023 [facility] Care Teams (unrecognized sec tion and content) Nursing Manager Relationship Specialty Start Date End Date Jason Scruggs DO [address] [place] [address] PCP - General Family Medicine 11/08/18 Nursing Manager Relationship Specialty Start Date End Date Jason Scruggs DO [address] [place] [address] PCP - General Family Medicine 11/08/18 FOR [...] BE BASED ON THE PRIMARY CLINICAL RECORDS. [email or web address] provides no warranty or guarantee of the accuracy or completeness of information in this document.
[2024-01-11 06:57] VITALS: BP 123/84; PULSE 98; TEMP 37; O2SAT 99
[2024-01-11 07:32] VITALS: BP 124/70; PULSE 95; O2SAT 97
[2024-01-11 07:34] VITALS: BP 118/61; PULSE 91; O2SAT 96
[2024-01-11] MEDS: TRIAMCINOLONE ACETONIDE 40 MG/ML VIAL INJ (07:35)
[2024-01-11] MEDS: BUPIVACAINE HCL 0.25% PF 25 MG/10 ML VIAL INJ (07:35)
[2024-01-11] MEDS: LIDOCAINE HCL 2% 400 MG/20 ML MDV 15 ML INJ (07:37)
--- NOTE | 2024-01-11 07:42 | W.PM.PROCNOT ---
Date of procedure: 01/11/24 Pre-op diagnosis: Left shoulder osteoarthritis Post-op diagnosis: same as pre-op Procedure: Procedure: Left suprascapular and axillary radiofrequency ablation Medications: Bupivacaine 0.25% 2cc, kenalog 40mg, lidocaine 2% 6cc The patient was seen and examined in the preoperative holding area. Informed consent was obtained and placed on the chart.? The patient was brought to the medical procedure unit and placed in the prone position. A timeout was completed verifying correct patient, procedure site, positioning, plan, and special equipment.? Using aseptic technique, under direct fluoroscopic visualization, a 20-gauge 15 cm with a 10 mm curved active tip radiofrequency cannula was advanced to the superior portion of the left posterior osseous rim of the glenoid fossa, lateral and superior to the spinal glenoid notch. Motor stimulation was carried out at 2 Hz up to 5 volts with the absence of extremity activity. Then radiofrequency lesioning was carried out for 90 seconds at 80 degrees.? The needle was then redirected 3 mm inferiorly and another lesioning was carried out for 90 seconds at 80 degree.? Using aseptic technique, under direct fluoroscopic visualization, another 20-gauge 15 cm with a 10 mm curved active tip radiofrequency cannula was advanced toward the most inferior and lateral border of the greater tubercle. Motor stimulation was carried out at 2 Hz up to 5 volts with the absence of extremity activity. Then radiofrequency lesioning was carried out for 90 seconds at 80 degrees.? The needle was then redirected 3 mm inferiorly and another lesioning was carried out for 90 seconds at 80 degree.? The patient was taken to the postprocedural recovery area and monitored for an appropriate length of time before being found suitable for discharge in the accompaniment of a responsible adult. Anesthesia: Local Surgeon: Tatianna Romeo Pathology: none sent Condition: stable Disposition: no change
== END 2024-01-11 07:47 | disposition home or self-care (01) ==
LOC: SURGOUT 06:54
PROVIDERS: PCP Family Medicine; Visit Provider Anesthesiology
DX: M19.012 Primary osteoarthritis, left shoulder (principal)
CPT/HCPCS: 64640

== ENCOUNTER 2024-01-28 17:57 | Emergency (ER) | payer OTHER, SELFPAY ==
[2024-01-28 18:01] VITALS: BP 150/94; PULSE 102; TEMP 36.4; O2SAT 98; BMI 28.5
--- NOTE | 2024-01-28 18:09 | ED_ITS ---
HPI HPI - General Adult General Chief complaint: Weakness Stated complaint: poss dehydration, uti Time Seen by Provider: 01/28/24 17:59 Source: patient Mode of arrival: walk-in Limitations: no limitations History of Present Illness HPI narrative: 48-year-old female presents because she is worried she might have a UTI. She saw some blood in her urine about 3 weeks ago and then again today. She has not had a fever but her appetite has been poor and she has been fatigued. No vaginal bleeding. She has not had fever cough or chest pain. Related Data Home Medications ?Medication ?Instructions ?Recorded ?Confirmed etodolac 400 mg tablet 400 mg PO DAILY 02/19/23 01/11/24 milnacipran 25 mg tablet (Savella) 100 mg PO BID 02/19/23 01/11/24 pwfszdabkf-mmbsvgedoshca-ikowngcd 1 cap PO DAILY PRN pain 10/28/23 01/11/24 50 mg-300 mg-40 mg capsule (Fioricet) cyclobenzaprine 10 mg tablet 10 mg PO Q12H 10/28/23 01/11/24 esomeprazole magnesium 40 mg 40 mg PO DAILY 10/28/23 01/11/24 capsule,delayed release (Nexium) nifedipine 20 mg capsule 60 mg PO BID 10/28/23 01/11/24 pregabalin 50 mg capsule 50 mg PO Q12H PRN SHOOTING PAIN 10/28/23 01/11/24 Allergies Allergy/AdvReac Type Severity Reaction Status Date / Time codeine Allergy tremors Verified 01/11/24 07:02 Opioid HPI Opioid Management Most Recent Opioid Data: Last Pain Scale 5 01/11/24 06:57 Review of Systems ROS Narrative A ten point review of systems is negative except as noted above. PFSH PFSH Medical History Hypothyroid ?E03.9 - Hypothyroidism, unspecified (ICD-10) Osteoarthritis ?M19.90 - Unspecified osteoarthritis, unspecified site (ICD-10) Fibromyalgia ?M79.7 - Fibromyalgia (ICD-10) Raynauds disease ?I73.00 - Raynaud's syndrome without gangrene (ICD-10) Anxiety ?F41.9 - Anxiety disorder, unspecified (ICD-10) Carpal tunnel syndrome ?G56.00 - Carpal tunnel syndrome, unspecified upper limb (ICD-10) Acid reflux ?K21.9 - Gastro-esophageal reflux disease without esophagitis (ICD-10) History of smoking at least 1 pack per day for at least 30 years ?Z87.891 - Personal history of nicotine dependence (ICD-10) Surgical History H/O tubal ligation ?Z98.51 - Tubal ligation status (ICD-10) H/O: hysterectomy ?Z90.710 - Acquired absence of both cervix and uterus (ICD-10) Social History Smoking status: Current every day smoker 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 Highest level of school completed/degree received: Associate degree: academic program Are you now , , , , never or living with a partner: In a typical week, how many times do you talk on the telephone with family, friends, or neighbors: 3 or more times per week How often do you get together with friends or relatives: twice per week How often do you attend yazidism or muslim services: never Do you belong to any clubs or organizations such as yazidism groups unions, [employer] or athletic groups, or school groups: no Total score: 2 Score interpretation: A score of greater than or equal to 2 indicates the lowes t level of social isolation. Little interest or pleasure in doing things: several days Feeling down, depressed, or hopeless: several days Feel stressed/tense/nervous/anxious/difficulty sleeping: very much Life stressors: divorce/separation, loss of job and financial matters Do you think of yourself as: straight/heterosexual Gender Identity: female Exam Narrative Exam Narrative: Nurses note and vital signs reviewed and patient is not hypoxic. General: The patient appears well and in no apparent distress. Patient is resting comfortably on cart. Skin: Warm, dry, no pallor noted. There is no rash noted. Head: Normocephalic, atraumatic Eye: Normal conjunctiva, no drainage Ears, Nose, Mouth, and Throat: oral mucosa is moist. Nares patent. Cardiovascular: Regular Rate and Rhythm Respiratory: Patient is in no distress, no accessory muscle use, lungs are clear to auscultation, no wheezing, rales or rhonchi Back: non-tender GI: Soft and no apparent tenderness Musculoskeletal: The patient has no evidence of calf tenderness, no pitting edema, symmetrical pulses noted bilaterally Neurological: A&O, normal speech Psychiatric: Cooperative Constitutional Vital Signs, click to edit/add: Last Vital Signs Temp 97.6 F 01/28/24 18:01 Pulse 102 H 01/28/24 18:01 Resp 18 01/28/24 18:01 BP 150/94 H 01/28/24 18:01 Pulse Ox 98 01/28/24 18:01 O2 Del Method Room Air 01/28/24 18:01 Course Vital Signs Vital signs: Vital Signs Temperature 97.6 F 01/28/24 18:01 Pulse Rate 102 H 01/28/24 18:01 Respiratory Rate 18 01/28/24 18:01 Blood Pressure 150/94 H 01/28/24 18:01 Pulse Oximetry 98 01/28/24 18:01 Oxygen Delivery Method Room Air 01/28/24 18:01 Temperature 97.6 F 01/28/24 18:01 Pulse Rate 102 H 01/28/24 18:01 Respiratory Rate 18 01/28/24 18:01 Blood Pressure 150/94 H 01/28/24 18:01 Pulse Oximetry 98 01/28/24 18:01 Oxygen Delivery Method Room Air 01/28/24 18:01 Medical Decision Making MDM Narrative Medical decision making narrative: Tests are ordered and she was given IV fluids and the patient is signed out to Dr. Quinn at change of shift. Differential Diagnosis Differential Diagnosis: UTI, dehydration Lab Data Lab results reviewed: Yes I reviewed the patient's lab results Labs: Lab Results 01/28/24 01/28/24 Range/Units 18:10 18:20 WBC 10.1 (4.0-11.0) 10^3/uL RBC 4.42 (4.20-5.40) 10^6/uL Hgb 14.1 (12.0-16.0) g/dL Hct 43.7 (36.0-48.0) % MCV 98.9 (81.0-99.0) fL MCH 31.9 (26.7-34.0) pg MCHC 32.3 (29.9-35.2) g/dL RDW 12.5 (11.0-15.0) % Plt Count 223 (150-450) 10^3/uL MPV 11.2 (9.5-13.5) fL Neut % (Auto) 53.8 (43.0-75.0) % Lymph % (Auto) 34.0 (20.5-60.0) % [place] % (Auto) 9.7 (1.7-12.0) % Eos % (Auto) 1.5 (0.9-7.0) % Baso % (Auto) 0.5 (0.2-2.0) % Neut # (Auto) 5.5 (1.4-6.5) 10^3/uL Lymph # (Auto) 3.4 (1.2-3.8) 10^3/uL [place] # (Auto) 1.0 H (0.3-0.8) 10^3/uL Eos # (Auto) 0.2 (0.0-0.7) 10^3/uL Baso # (Auto) 0.1 (0.0-0.1) 10^3/uL Abs Immat Gran (auto) 0.05 H (0.00-0.03) 10^3/uL Imm/Tot Granulo (auto) 0.5 (0.0-0.5) % Urine Color Lt. yellow (YELLOW) Urine Clarity Clear (CLEAR) Urine pH 6.0 (5.0-9.0) Ur Specific [place] 1.025 (1.005-1.025) Urine Protein Negative (NEG/TRACE) mg/dL Urine Glucose (UA) Negative (NEGATIVE) mg/dL Urine Ketones Negative (NEGATIVE) mg/dL Urine Occult Blood Negative (NEGATIVE) Urine Nitrite Negative (NEGATIVE) Urine Bilirubin Negative (NEGATIVE) Urine Urobilinogen 0.2 (0.2-1.0) EU/dL Ur Leukocyte Esterase Negative (NEGATIVE) Discharge Plan Discharge Patient Disposition: Still a Patient
--- OUTSIDE RECORDS SUMMARY | 2024-01-28 18:13 | XMS_ITS | CCD ---
Author Organization [facility] Care Team Providers Care [employer] Name Role Phone Patsy Negrete Unavailable SCRUGGS, [...] Codeine; Translations: [CODEINE] Drug Allergy [address] [facility] Repository (2 sources) Codeine Drug Allergy 9 Other (See Comments) [facility] Work Phone: Medications Current Medications Medication Drug [...] 12 hrs for 7 days Oct, Active Kjqmvswkal-ENNK-Ghkl eine (1 source) Butalbital-APAP- Caf feine Active [...] (4 sources) Start: 12-24-2018 End: 10-21-2023 take [id number] tablet by mouth twice daily busPIRone (BUSPAR) [...] by: PETE COPE Date: 2022-10-29 09:18 Normal [facility] MG MAMM SCREEN 3D ANISH CADon 12-18-2021 MG MAMM SCREEN 3D ANISH CAD Patient: LISBETH SÁNCHEZ Exam Date: 12/18/2021 : 1975 Gender:F Ordering : DR JASON SCRUGGS D.O. Admission #: [id number] Family : Order #: [id number] CLICK HERE TO VIEW EXAM RADIOLOGY REPORT [...] colon,uterine cancer at age 49. LOCATION: [facility] BREAST COMPOSITION: Heterogeneously dense,which may obscure small [...] MD on 12/18/2021 at 14:31 Normal [facility] COVID Quick Testingon 2020 Result Negative [facility] Other Vital Signs Date Time Vital Sign Value Performing Clinician Faci lity 10-21-2023 11:03-0400 Body height 157.5 cm Debi Clayton PA-C Work Phone: [facility] 10-21-2023 11:03-0400 Body mass index (BMI) [Ratio] 28.83 kg/m2 Debi Clayton PA-C Work Phone: [facility] 10-21-2023 11:03-0400 Body weight 71.49 kg Debi Clayton PA-C Work Phone: [facility] 10-21-2023 11:03-0400 Diastolic blood pressure 85 mm[Hg] Debi Clayton PA-C Work Phone: [facility] 10-21-2023 11:03-0400 Heart rate 101 /min Debi Clayton PA-C Work Phone: [facility] 10-21-2023 11:03-0400 Systolic blood pressure 167 mm[Hg] Debi Clayton PA-C Work Phone: [facility] Encounters Encounter Date Encounter Type Care Provider Facility Start: 01-11-2024 End: 01-11-2024 ambulatory Tatianna Romeo MD Facility:[facility] Start: 12-14-2023 End: 12-14-2023 ambulatory Tatianna Romeo MD Facility:[facility] Start: 12-02-2023 End: 12-02-2023 ambulatory ERIC FREEMAN Not Available Start: 2023 End: 2023 ambulatory Tatianna Romeo MD Facility:[facility] Start: 11-11-2023 End: 11-12-2023 ambulatory ERIC FREEMAN Not Available Start: 11-09-2023 End: 11-09-2023 ambulatory Tatianna Romeo MD Facility:[facility] Start: 10-22-2023 End: 12-09-2023 ambulatory DEBI [facility] Start: 10-21-2023 End: 10-21-2023 ambulatory [facility] Start: 10-21-2023 End: 10-21-2023 Office outpatient new 45 minutes Debi Clayton PA-C Work Phone: [facility] Comment on above: Cervical radiculopat hy (Primary Dx); Degenerative disc disease, cervical; Rotator cuff tear arthropathy of right shoulder Start: 10-09-2023 Telephone encounter [facility] Start: 10-29-2022 End: 10-30-[address] JASON SCRUGGS Facility:[facility] Start: 12-18-2021 End: 12-19-[address] JASON SCRUGGS Facility:[facility] Start: 07-03-2021 End: 07-03-2021 ambulatory Patsy Negrete Other [employer] [facility] Other Start: 07-03-2021 Office outpatient vi sit 5 minutes Patsy Negrete [facility] Procedures Date Procedure Procedure Detail Performing Clinician Start: 10-21-2023 Adult depression screening assessment Debi Clayton PA-C Work Phone: Plan of Treatment Date Care Activity Detail Author Start: 10-20-2024 Adult BMI Screening Adult BMI Screen ing [facility] Start: 10-20-2024 Depression Screening Depression Scre ening [facility] Start: 10-20-2024 Tobacco Screening Tobacco Screening [facility] Start: 01-27-2024 End: 01-27-2024 Patient encounter procedure 01/27/2024 1:30 PM EDT Office Visit [facility] [address] [place] [address] Debi Clayton PA-C [address] [place] [id number] [facility] Start: 11-11-2023 End: 11-11-2023 Patient encounter procedure 11/11/2023 1:45 PM EDT Appointment [facility] [address] [place] [phone] Cervical radiculopathy [facility] Comment on above: Cervical radiculopat hy Start: 10-30-2023 Adult BMI Screening Adult BMI Screen ing [facility] Start: 10-30-2023 Tobacco Screening Tobacco Screening [facility] Start: 10-21-2023 End: 10-21-2023 Patient encounter procedure 10/21/2023 11:00 AM EDT Office Visit [facility] [address] [place] [address] Debi Clayton PA-C [address] [place] [phone] [facility] Start: 04-10-2023 COVID-19 Vaccine ( season) COVID-19 Vaccine () [facility] Start: 04-10-2023 Influenza vaccination Influenza Vacc ine [facility] Start: 1993 DTaP,Tdap and Td Vaccines (1 - Tdap) DTaP,Tdap and Td Vaccines (1 - Tdap) [facility] Start: 1992 Adult BMI Follow Up Plan Adult BMI Follow Up Plan [facility] Start: 1986 Depression Screening Depression Scre ening [facility] Start: 1975 Tobacco Counseling Tobacco Counselin g [facility] Immunizations Immunization Date Immunization Notes Care Provider Fa cility 05-09-2021 influenza virus vacc ine, unspecified formulation Shila Son [facility] Payers Date Payer Category Payer Unknown [id number] 1975 Unknown [id number] 2.16.84 [id number] 1975 Unknown [id number] 2.16.84 [id number] 1975 Unknown [id number] 2.16.84 [id number] 1975 Unknown [id number] 2.16.84 [id number] 1975 Unknown [id number] 2.16.84 [id number] 1975 Unknown [id number] 2.16.8 [id number] 1975 Unknown [id number] 2.16.8 [id number] 1975 Unknown [id number] 2.16. [id number] 1975 Unknown [id number] 2.16. [id number] 1975 Unknown [id number] 2.16. [id number] 1975 Unknown [id number] 2.16. [id number] 1960 Unknown [id number] 2.1 [id number] Social History Date Type Detail Facility Unknown if ever smoked [facility] [employer] Other Start: 09-20-2020 End: 10-29-2022 Sex Assigned At [facility] [employer] Other Start: 11-15-2018 End: 10-21-2023 Tobacco smoking status HIIS Smokes tobacco daily [facility] History of tobacco use Cigarette Smoker P [facility] Start: 11-15-2018 End: 09-20-2020 Cigarettes smoked current (pack per day) - Reported 1 [facility] Start: 11-15-2018 End: 10-21-2023 Tobacco use and exposure Smokeless tobacco non-user [facility] Childcare Unknown [facility] Start: 11-15-2018 Alcohol Comment rare [facility] Start: 1975 Sex Assigned At Not on file P [facility] History of Present illness Narrative 10-21-2023 Debi Clayton PA-C - 10/21/2023 11:00 AM EDT Note Date & Type Note Facility 10-21-2023 History of Present illness Narrative [facility] Office Note 10/21/2023 9:04 AM Patient info: Lisbeth Sánchez is a 47 y.o. female Account No.: [id number] Acct: : 1975 PCP: JASON SCRUGGS DO Chief Complaint: Patient, 47 year old female, presents today for initial Neurological evaluation regarding headaches. Referred by Dr. Adrian MORIN Lisbeth is present in the office today by herself. HPI: Lisebth complains of neck pain, right shoulder pain, [...] of the infraspinatus tendon. Intact biceps tendon. Efic-xj-mpjyebwx acromioclavicular osteoarthritis. Moderate glenohumeral osteoarthritis with posterior [...] 10/22/23 0901 documented in this encounter [facility] Note 10-09-2023 Telephone Encounter - [...] cases) - NO 3. WHAT INSURANCE? - [facility] 4. HAVE YOU EVER BEEN SEEN BY A NEUROLOGIST BEFORE? IF YES, WHO AND WHEN? IS THIS A SECOND OPINION? - YES, DOES NOT REMEMBER 5. PATIENT IS SCHEDULED ON/WITH: - 10/20 AR 11AM WITH DEBI CLAYTON [facility] Note 10-09-2023 Telephone Encounter [...] INSURANCE? - [facility] 4. HAVE YOU EVER BEEN SEEN BY A NEUROLOGIST BEFORE? IF YES, WHO AND WHEN? IS THIS A SECOND OPINION? - YES, DOES NOT REMEMBER 5. PATIENT IS SCHEDULED ON/WITH: - 10/20 AR 11AM [facility] Evaluation note 07-03-2021 Note Date & [...] Patient care instructions given in writting by [facility] Care At Home document. [employer] Other Evaluation note Note Date & Type Note Facility Evaluation note Diagnosis Cervical radiculopathy- Primary Brachial neuritis or radiculitis nos Degenerative disc disease, cervical Rotator cuff tear arthropathy of right shoulder Cervical radiculopathy Brachial neuritis or radiculitis nos [facility] History general Narrative - Reported Note Date & Type Note Facility History general Narrative - Reported Type Medical History migraine headache Medical History back pain Medical History fibromyalgia Medical History raynauds syndrome [facility] Other Instructions Note Date & Type Note Facility Instructions Not on filedocumented in this en counter [facility] Instructions Note Date & Type Note Facility Instructions Not on filedocumented in this en counter [facility] Summary Purpose Family History No Family [...] Cervical radiculopathy Debi Clayton PA-C [address] [place] [address] [facility] [address] [place] [address] Referral ID Status Reason Start Date Expiration Date V isits Requested Visits Authorized [id number] Closed Specialty Services Required 10/21/2023 10/20/2024 1 [...] herniated disc Jason Scruggs, DO [address] [place] [address] [facility] [address] [place] [address] Referral ID Status Reason Start Date Expiration Date Visits Requested Visits Authorized [id number] Pending Review Specialty Services Required 10/06/2023 10/05/2024 1 1 INFORMATION SOURCE (unrecogn ized section and content) DATE CREATED AUTHOR [facility]/02/2022 [facility] DATE CREATED AUTHOR AUTHOR'S ORGANIZ ATION 12/03/2023 [facility] Specialists EPIC DATE CREATED AUTHOR AUTHOR'S ORGANIZ ATION 12/10/2023 [place] DATE CREATED AUTHOR AUTHOR'S ORGANIZ ATION 01/19/2024 [facility] Care Teams (unrecognized sec tion and content) [employer] Relationship Specialty Start Date End Date Jason Scruggs DO [address] [place] [address] PCP - General Family Medicine 11/08/18 [employer] Relationship Specialty Start Date End Date Jason Scruggs DO [address] [place] [address] PCP - General Family Medicine 11/08/18 FOR [...] BE BASED ON THE PRIMARY CLINICAL RECORDS. [facility]. provides no warranty or guarantee of the accuracy or completeness of information in this document.
[2024-01-28] MEDS: ONDANSETRON PF 4 MG/2 ML VIAL IV (18:33)
[2024-01-28] MEDS: 0.9 % SODIUM CHLORIDE 1,000 ML 1000 ML IV (18:33)
[2024-01-28 18:34] LABS: Bilirubin Urine NEGATIVE (NEGATIVE); Blood Urine NEGATIVE (NEGATIVE); Clarity Urine CLEAR (CLEAR); Color Urine LT. YELLOW (YELLOW); Glucose Urine UA NEGATIVE (NEGATIVE); Ketones Urine NEGATIVE (NEGATIVE); Leukocyte Esterase Urine NEGATIVE (NEGATIVE); Nitrite Urine NEGATIVE (NEGATIVE); Protein Urine NEGATIVE (NEG/TRACE); Specific Gravity Urine 1.025 (1.005-1.025); Urobilinogen Urine 0.2 EU/dL (0.2-1.0)
[2024-01-28 18:36] LABS: Basophils Absolute Auto 0.1 10^3/uL (0.0-0.1); Basophils Percent Auto 0.5 % (0.2-2.0); Eosinophils Absolute Auto 0.2 10^3/uL (0.0-0.7); Eosinophils Percent Auto 1.5 % (0.9-7.0); Hematocrit 43.7 % (36.0-48.0); Hemoglobin 14.1 g/dL (12.0-16.0); Immature Granulocytes Abs Auto 0.05 10^3/uL (0.00-0.03); Immature Granulocytes Pct Auto 0.5 % (0.0-0.5); Lymphocytes Absolute Auto 3.4 10^3/uL (1.2-3.8); Mean Corpuscular HGB Conc 32.3 g/dL (29.9-35.2); Mean Corpuscular Hemoglobin 31.9 pg (26.7-34.0); Mean Corpuscular Volume 98.9 fL (81.0-99.0); Mean Platelet Volume 11.2 fL (9.5-13.5); Monocytes Percent Auto 9.7 % (1.7-12.0); Neutrophils Absolute Auto 5.5 10^3/uL (1.4-6.5); Neutrophils Percent Auto 53.8 % (43.0-75.0); Platelet Count 223 10^3/uL (150-450); Red Blood Count 4.42 10^6/uL (4.20-5.40); Red Cell Distribution Width 12.5 % (11.0-15.0); White Blood Count 10.1 10^3/uL (4.0-11.0)
[2024-01-28 18:48] LABS: Bacteria Urine MODERATE #/HPF (NONE SEEN); Mucus Urine MODERATE (NONE SEEN); RBC Urine NONE SEEN #/HPF (0-2); WBC Urine 0-2 #/HPF (NONE SEEN)
[2024-01-28 18:49] LABS: Cast Seen? NONE SEEN #/LPF (NONE SEEN); Crystals Seen? None Seen #/HPF (None Seen); Squamous Epithelial Cell Urine MODERATE #/LPF (NONE/RARE)
[2024-01-28 18:50] LABS: Urine Culture Indicated YES
[2024-01-28 18:51] LABS: Anion Gap 10.4; Calcium 8.8 mg/dL (8.5-10.1); Chloride 107 mmol/L (98-107); Estimated GFR (African America >60 (>=60); Estimated GFR (Non-African Ame >60 (>=60); Glucose 70 mg/dL (74-106); Potassium 3.4 mmol/L (3.5-5.1); Sodium 144 mmol/L (136-145)
[2024-01-28 19:20] VITALS: BP 111/69; PULSE 92; O2SAT 98
--- NOTE | 2024-01-28 20:01 | ED.GENADUL1 ---
HPI HPI - General Adult General Chief complaint: Weakness Stated complaint: poss dehydration, uti Time Seen by Provider: 01/28/24 17:59 Source: patient Mode of arrival: walk-in Limitations: no limitations History of Present Illness HPI narrative: This 48-year-old female was signed out to me at shift change. She has a history of fibromyalgia. She states for the past 3 days she has been in bed because she has been weak and not feeling well. She feels dehydrated. She has had intermittent episodes of blood in her urine. She had some 3 weeks ago and then today. She states she does have some intermittent lower abdominal cramps. She states that her body aches all over. She is not having any chest pain or shortness of breath. She states that when she stands up she breaks out in a sweat. I reviewed her labs. She has a normal white count and hemoglobin. Electrolytes are normal. Her glucose was mildly low at 70. She does have bacteria in her urine. She states to me that she only drinks Mountain Dew and Richard-aid. She is not having any nausea vomiting diarrhea. I added on a troponin which is normal at 4.3 and COVID-19 testing which is negative. She was medicated with IV Rocephin for the bacteria in her urine and given a dose of Toradol. She is tolerating clear liquids and peanut butter crackers. On reevaluation she is texting on her phone. She appears to feel better but states she is still feeling weak. She states she typically can tolerate the heat but the heat is really seeming to bother her right now. She does not think that he typically flares of her fibromyalgia. I will add on a TSH at this time. TSH is normal. She will be discharged home at this time with a prescription for Keflex for the bacteria in her urine. I encouraged her to drink more water and less pop. Related Data Home Medications ?Medication ?Instructions ?Recorded ?Confirmed etodolac 400 mg tablet 400 mg PO DAILY 02/19/23 01/11/24 milnacipran 25 mg tablet (Savella) 100 mg PO BID 02/19/23 01/11/24 ssysykkvqb-blojcdsosgmuq-vxxxytmh 1 cap PO DAILY PRN pain 10/28/23 01/11/24 50 mg-300 mg-40 mg capsule (Fioricet) cyclobenzaprine 10 mg tablet 10 mg PO Q12H 10/28/23 01/11/24 esomeprazole magnesium 40 mg 40 mg PO DAILY 10/28/23 01/11/24 capsule,delayed release (Nexium) nifedipine 20 mg capsule 60 mg PO BID 10/28/23 01/11/24 pregabalin 50 mg capsule 50 mg PO Q12H PRN SHOOTING PAIN 10/28/23 01/11/24 Allergies Allergy/AdvReac Type Severity Reaction Status Date / Time codeine Allergy tremors Verified 01/11/24 07:02 Opioid HPI Opioid Management Most Recent Opioid Data: Last Pain Scale 4 01/28/24 21:07 Last ED Pain Assessment 01/28/24 21:07 PFSH PFSH Medical History Hypothyroid ?E03.9 - Hypothyroidism, unspecified (ICD-10) Osteoarthritis ?M19.90 - Unspecified osteoarthritis, unspecified site (ICD-10) Fibromyalgia ?M79.7 - Fibromyalgia (ICD-10) Raynauds disease ?I73.00 - Raynaud's syndrome without gangrene (ICD-10) Anxiety ?F41.9 - Anxiety disorder, unspecified (ICD-10) Carpal tunnel syndrome ?G56.00 - Carpal tunnel syndrome, unspecified upper limb (ICD-10) Acid reflux ?K21.9 - Gastro-esophageal reflux disease without esophagitis (ICD-10) History of smoking at least 1 pack per day for at least 30 years ?Z87.891 - Personal history of nicotine dependence (ICD-10) Surgical History H/O tubal ligation ?Z98.51 - Tubal ligation status (ICD-10) H/O: hysterectomy ?Z90.710 - Acquired absence of both cervix and uterus (ICD-10) Social History Smoking status: Current every day smoker 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 Highest level of school completed/degree received: Associate degree: academic program Are you now , , , , never or living with a partner: In a typical week, how many times do you talk on the telephone with family, friends, or neighbors: 3 or more times per week How often do you get together with friends or relatives: twice per week How often do you attend confucianism or mormon services: never Do you belong to any clubs or organizations such as confucianism groups unions, fraternal or athletic groups, or school groups: no Total score: 2 Score interpretation: A score of greater than or equal to 2 indicates the lowest level of social isolation. Little interest or pleasure in doing things: several days Feeling down, depressed, or hopeless: several days Feel stressed/tense/nervous/anxious/difficulty sleeping: very much Life stressors: divorce/separation, loss of job and financial matters Do you think of yourself as: straight/heterosexual Gender Identity: female Exam Constitutional Vital Signs, click to edit/add: Last Vital Signs Temp 97.6 F 01/28/24 18:01 Pulse 80 01/28/24 20:35 Resp 18 01/28/24 20:35 BP 115/84 01/28/24 20:35 Pulse Ox 98 01/28/24 20:35 O2 Del Method Room Air 01/28/24 19:20 Course Vital Signs Vital signs: Vital Signs Temperature 97.6 F 01/28/24 18:01 Pulse Rate 102 H 01/28/24 18:01 Respiratory Rate 18 01/28/24 18:01 Blood Pressure 150/94 H 01/28/24 18:01 Pulse Oximetry 98 01/28/24 18:01 Oxygen Delivery Method Room Air 01/28/24 18:01 Temperature 97.6 F 01/28/24 18:01 Pulse Rate 80 01/28/24 20:35 Respiratory Rate 18 01/28/24 20:35 Blood Pressure 115/84 01/28/24 20:35 Pulse Oximetry 98 01/28/24 20:35 Oxygen Delivery Method Room Air 01/28/24 19:20 Medical Decision Making MDM Narrative Medical decision making narrative: Please see my transfer of care note in HPI Lab Data Lab results reviewed: Yes I reviewed the patient's lab results Labs: Lab Results 01/28/24 01/28/24 01/28/24 Range/Units 18:10 18:20 20:00 WBC 10.1 (4.0-11.0) 10^3/uL RBC 4.42 (4.20-5.40) 10^6/uL Hgb 14.1 (12.0-16.0) g/dL Hct 43.7 (36.0-48.0) % MCV 98.9 (81.0-99.0) fL MCH 31.9 (26.7-34.0) pg MCHC 32.3 (29.9-35.2) g/dL RDW 12.5 (11.0-15.0) % Plt Count 223 (150-450) 10^3/uL MPV 11.2 (9.5-13.5) fL Neut % (Auto) 53.8 (43.0-75.0) % Lymph % (Auto) 34.0 (20.5-60.0) % [place] % (Auto) 9.7 (1.7-12.0) % Eos % (Auto) 1.5 (0.9-7.0) % Baso % (Auto) 0.5 (0.2-2.0) % Neut # (Auto) 5.5 (1.4-6.5) 10^3/uL Lymph # (Auto) 3.4 (1.2-3.8) 10^3/uL [place] # (Auto) 1.0 H (0.3-0.8) 10^3/uL Eos # (Auto) 0.2 (0.0-0.7) 10^3/uL Baso # (Auto) 0.1 (0.0-0.1) 10^3/uL Abs Immat Gran (auto) 0.05 H (0.00-0.03) 10^3/uL Imm/Tot Granulo (auto) 0.5 (0.0-0.5) % Sodium 144 (136-145) mmol/L Potassium 3.4 L (3.5-5.1) mmol/L Chloride 107 (98-107) mmol/L Carbon Dioxide 30.0 (21.0-32.0) mmol/L Anion Gap 10.4 BUN 7.0 (7.0-18.0) mg/dL Creatinine 0.87 (0.55-1.02) mg/dL Est GFR ( Amer) >60 (>=60) Est GFR (Non-Af Amer) >60 (>=60) BUN/Creatinine Ratio 8.0 Glucose 70 L (74-106) mg/dL Calcium 8.8 (8.5-10.1) mg/dL Troponin I High Sens 4.3 (4.0-51.3) pg/mL TSH & Free T4 Interp 1.052 (0.358-3.740) uIU/mL Urine Color Lt. yellow (YELLOW) Urine Clarity Clear (CLEAR) Urine pH 6.0 (5.0-9.0) Ur Specific [place] 1.025 (1.005-1.025) Urine Protein Negative (NEG/TRACE) mg/dL Urine Glucose (UA) Negative (NEGATIVE) mg/dL Urine Ketones Negative (NEGATIVE) mg/dL Urine Occult Blood Negative (NEGATIVE) Urine Nitrite Negative (NEGATIVE) Urine Bilirubin Negative (NEGATIVE) Urine Urobilinogen 0.2 (0.2-1.0) EU/dL Ur Leukocyte Esterase Negative (NEGATIVE) Urine RBC None seen (0-2) #/HPF Urine WBC 0-2 A (NONE SEEN) #/HPF Ur Squamous Epith Cells Moderate A (NONE/RARE) #/LPF Urine Crystals None seen (None Seen) #/HPF Urine Bacteria Moderate A (NONE SEEN) #/HPF Urine Casts None seen (NONE SEEN) #/LPF Urine Mucus Moderate A (NONE SEEN) Ur Culture Indicated? Yes SARS-CoV-2 Ag (CV2AG) Negative (NEGATIVE) Discharge Plan Discharge Stand Alone Forms: Portal Instructions Chief Complaint: Weakness Clinical Impression: Generalized weakness, ASB (asymptomatic bacteriuria) Patient Disposition: Home, Self-Care Time of Disposition Decision: 21:46 Condition: Good Prescriptions / Home Meds: No Action etodolac 400 mg tablet 400 mg PO DAILY Patient Comments: pt states she usually just takes it at night Savella 25 mg tablet 100 mg PO BID cyclobenzaprine 10 mg tablet 10 mg PO Q12H pregabalin 50 mg capsule 50 mg PO Q12H PRN (Reason: SHOOTING PAIN) nifedipine 20 mg capsule 60 mg PO BID esomeprazole magnesium [Nexium] 40 mg capsule,delayed release(DR/EC) 40 mg PO DAILY itnlcvoqoa-jpytodpchorda-drhv [Fioricet] 50-300-40 mg capsule 1 cap PO DAILY PRN (Reason: pain) Print Language: Uzbek Instructions: Urinary Tract Infection in Women (ED), Liquids and Hydration for Athletes (ED), Weakness (ED) Additional Instructions: Drink plenty of fluids. Use antibiotics as directed until gone. Referrals: JOLENE SCRUGGS DO [Primary Care Provider] - 1 week
[2024-01-28 20:20] LABS: Internal Control Within Normal Limits; SARS-CoV-2 Ag NEGATIVE (NEGATIVE)
[2024-01-28 20:22] LABS: Troponin I High Sensitivity 4.3 pg/mL (4.0-51.3)
[2024-01-28] MEDS: CEFTRIAXONE 1,000 MG in 0.9 % SODIUM CHLORIDE 50 ML 100 MG IV (20:30)
[2024-01-28] MEDS: KETOROLAC TROMETHAMINE 30 MG/ML VIAL IVP (20:30)
[2024-01-28 20:35] VITALS: BP 115/84; PULSE 80; O2SAT 98
[2024-01-28 21:12] LABS: TSH W/ REFLEX FT4 1.052 uIU/mL (0.358-3.740)
== END 2024-01-28 21:55 | disposition home or self-care (01) ==
PROVIDERS: Emergency Medicine; Emergency Provider Emergency Medicine; PCP Family Medicine
DX: R82.71 Bacteriuria (principal); R53.1 Weakness; F17.200 Nicotine dependence, unspecified, uncomplicated; M79.7 Fibromyalgia; Z20.822 Contact with and (suspected) exposure to COVID-19
CPT/HCPCS: 36415; 80048; 81001; 84443; 84484; 85025; 87086; 87635; 87811; 96365; 96375; 99284; J0696; J1885; J2405

== ENCOUNTER 2024-09-07 13:16 | Outpatient (OUT) | payer OTHER, SELFPAY ==
--- NOTE | 2024-09-07 13:21 | MM_ITS ---
Patient Name: LISBETH RAO MR#: [id number] : 1975 Exam Date: 09/07/2024 Ordering Doctor: DR JOLENE SCRUGGS D.O. RADIOLOGY REPORT PROCEDURE: MM TOMOSYNTHESIS DIAGNOSTIC BI, 09/07/2024, 13:42 US BREAST RT LIMITED, 09/07/2024, 14:00 COMPARISON: XR CHEST 1V, 02/18/2023. MG MAMM SCREEN 3D ANISH CAD, 12/18/2021. MG MAMM SCREEN ANISH W CAD, 07/19/2019. MG MAMM ANISH SCRN W CAD DIG, 12/25/2015. INDICATIONS: Right Breast Lump Calculator Name NCI Breast Cancer Risk Assessment Tool 5 Year Breast Cancer Risk 0.80% Lifetime Breast Cancer Risk 8.20% Personal Breast Cancer No Personal Ovarian Cancer No Treatments None Family Cancers Aunt-paternal with breast cancer at age 50; Aunt-maternal with colon,uterine cancer at age 45; Cousin-maternal with colon,uterine cancer at age 50. LOCATION: [facility] BREAST COMPOSITION: The breasts are heterogeneously dense,which may obscure small masses. FINDINGS: DIAGNOSTIC CATEGORY 1--NEGATIVE. RIGHT BREAST: Skin surface marker within the posterior upper inner quadrant with no underlying mammographic or sonographic abnormality. LEFT BREAST: No significant suspicious finding. No significant change has occurred. RECOMMENDATIONS: ROUTINE MAMMOGRAM AND CLINICAL EVALUATION IN 12 MONTHS. PLEASE NOTE: A NORMAL MAMMOGRAM DOES NOT EXCLUDE THE POSSIBILITY OF BREAST CANCER. A CLINICALLY SUSPICIOUS PALPABLE LUMP SHOULD BE BIOPSIED. Dictated by: Waqar Reed M.D. on 09/07/2024 at 14:13 Approved by: Waqar Reed M.D. on 09/07/2024 at 14:37
--- OUTSIDE RECORDS SUMMARY | 2024-09-07 13:29 | XMS_ITS | CCD ---
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 ALEJANDRA, ERIC Diop Attending Unavaila tony ROBERTS JR., ERIC Diop Referring Unavaila tony ROBERTS JR., ERIC Diop Attending Unavaila tony ROBERTS JR., ERIC Diop Attending Unavaila ble MAYELIN PORTILLO Attending Unavailable MAYELIN PORTILLO Attending Unavailable MAYELIN PORTILLO Attending Unavailable MAYELIN PORTILLO Attending Unavailable MAYELIN PORTILLO Attending Unavailable MAYELIN PORTILLO Attending Unavailable MAYELIN PORTILLO Attending Unavailable Allergies Allergy Classification Reported Allergen(s) Allergy Type Date of Onset Reaction(s) Facility (2 sources) Codeine; Translations: [CODEINE] Drug Allergy 3 [facility] Repository (20 sources) Codeine Drug Allergy 9 Other (See Comments), Unknown [facility] Work Phone: Medications Current Medications Medication Drug Class(es) Dates Sig (Normalized) Sig (Original) acetaminophen 300 mg / butalbital 50 mg / caffeine 40 mg oral capsule (20 sources) Barbiturate, Central Nervous System Stimulant, Methylxanthine take 1 capsule by mouth three times daily for headache butalbital-acetamin ophen-caffeine (Fioricet) 50-300-40 MG capsule butalbital-acetamin ophen-caffeine 50 mg-300 mg-40 mg capsule take 1 capsule by mouth three times a day if needed for headache Active acetaminophen 325 mg / HYDROcodone bitartrate 5 mg oral tablet (2 sources) Opioid Agonist Start: 03-30-2024 End: 04-04-2024 take 1 tablet by mouth every six hours for pain HYDROcodone-acetami nophen (Harrington) 5-325 MG tablet Indications: S/P arthroscopy of right shoulder Take 1 tablet by mouth every 6 (six) hours if needed for severe pain for up to 5 days 20 tablet 03/30/2024 04/04/2024 Active amoxicillin 875 mg oral tablet (1 source) Penicillin-class Antibacterial Start: 10-18-2020 take 1 tablet by mouth every twelve hours Amoxicillin 875 MG 1 tablet Orally every 12 hrs for 7 days Oct, Active Bdpuokpwzv-TPCP-Narc eine (1 source) Butalbital-APAP- Caf feine Active cyclobenzaprine hydrochloride 10 mg oral tablet (20 sources) Muscle Relaxant take 1 tablet by mouth three times daily as needed cyclobenzaprine (Flexeril) 10 MG tablet Take 10 mg by mouth 3 (three) times a day as needed Active Cyclobenzaprine HCl Active ergocalciferol 1.25 mg oral capsule (20 sources) Provitamin D2 Compound Start: 10-23-2023 take 1 capsule by mouth every week ergocalciferol (Vitamin D2) 1.25 MG (24754 UT) capsule Take 1 capsule by mouth 1 (one) time per week 10/23/2023 Active Start: 08-07-2023 take 1 capsule by mo uth every week ergocalciferol (DRISDOL) 1,250 mcg (50,000 unit) capsule take 1 capsule by mouth every week 0 08/07/2023 Active esomeprazole 40 mg delayed release oral capsule (20 sources) Proton Pump Inhibitor esomeprazo le (NexIUM) [address] capsule esomeprazole magnesium 40 mg capsule,delayed release Active etodolac 400 mg oral tablet (20 sources) Nonsteroidal Anti-inflammatory Drug take 1 tablet by mouth twice daily at mealtime etodolac (Lodine) 400 MG tablet take 1 tablet by mouth with food twice a day Active Etodolac Active milnacipran hydrochloride 100 mg oral tablet (20 sources) Serotonin and Norepinephrine Reuptake Inhibitor Start: 10-23-2023 take 1 tablet by mouth in the morning Savella 100 MG tablet Take 100 mg by mouth in the morning and 100 mg before bedtime. 10/23/2023 Active take 1 tablet by the [facility] in the morning, then take 1 tablet by mouth at bedtime milnacipran (SAVELLA) 50 mg tablet Take 1 tablet (50 mg total) by mouth in the morning and 1 tablet (50 mg total) before bedtime. 0 Active Savella Active 24 hr NIFEdipine 60 mg extended release oral tablet (20 sources) Dihydropyridine Calcium Channel Fay Start: 10-23-2023 take 1 tablet by mouth once daily NIFEdipine CC (Adalat CC) 60 MG 24 hr tablet take 1 tablet by mouth once daily ON AN EMPTY STOMACH 30 10/23/2023 Active NIFEdipine XL (P ROCARDIA XL) 60 mg 24 hr tablet Take 100 mg by mouth in the morning and at bedtime. Only taking 50 0 Active NIFEdipine ER Osmotic Release (1 source) NIFEdipine ER Os motic Release Active OXcarbazepine 150 mg oral tablet (20 sources) Anti-epileptic Agent Start: 4 OXcarbazepine (Trileptal) 150 MG tablet Take 1 tablet (150 mg) twice daily for 2 weeks, then increase to 2 tablets (300 mg) twice daily 10/21/2023 Active pregabalin 50 mg oral capsule (20 sources) Start: 3 take 1 capsule by mouth once daily pregabalin (Lyrica) 50 MG capsule take 1 capsule by mouth once daily if needed 07/15/2023 Active Verapamil (1 source) Calcium Channel Fay Verapamil HCl ER Active Completed/Discontinued Medications Medication Drug Class(es) Dates Sig (Normalized) Sig (Original) busPIRone hydrochloride 15 mg oral tablet (4 sources) Start: 12-24-2018 End: 10-21-2023 take [id number] tablet by mouth twice daily busPIRone (BUSPAR) [...] shoulder, not specified as traumatic] 10-22-2023 Episodic Other non-traumatic joint disorders (4 sources) Pain in right shoulder; Translations: [Pain in joint, shoulder region] 05-12-2024 Episodic Residual codes; unclassified (12 sources) History of arthroscopic procedure on shoulder; Translations: [Other specified postprocedural states] 05-12-2024 Episodic Spondylosis; intervertebral disc disorders; other back [...] ity MRI CSPINE WO [facility] HISTORY: Cervical radiculopathy , acute [...] PETE COPE Date: 2022-10-29 09:[address] [facility] MAMM SCREEN 3D ANISH CADon 12-18-2021 MAMM SCREEN 3D ANIHS CAD Patient: LISBETH SÁNCHEZ Exam Date: 12/18/2021 : 1975 Gender:F Ordering : DR JASON SCRUGGS D.O. Admission #: [id number] Family : Order #: [id number] CLICK HERE TO VIEW EXAM RADIOLOGY REPORT [...] colon,uterine cancer at age 49. LOCATION: [facility] BREAST COMPOSITION: Heterogeneously dense,which may obscure small [...] Harris MD on 12/18/2021 at 14:31 Normal [facility] COVID Quick Testingon 2020 Result Negative Budding Biologist Other Vital Signs Date Time Vital Sign Value Performing Clinician Narinder vasquez 10-21-2023 11:03-0400 Body height 157.5 cm Debi PLATA-C Work Phone: [facility] 10-21-2023 11:03-0400 Body mass index (BMI) [Ratio] 28.83 kg/m2 Debi PLATA-C Work Phone: [facility] 10-21-2023 11:03-0400 Body weight 71.49 kg Debi PLATA-C Work Phone: [facility] 10-21-2023 11:03-0400 Diastolic blood pressure 85 mm[Hg] Debi Clayton BONI-C Work Phone: [facility] 10-21-2023 11:03-0400 Heart rate 101 /min Debi PLATA-C Work Phone: [facility] 10-21-2023 11:03-0400 Systolic blood pressure 167 mm[Hg] Debi Clayton BONI-C Work Phone: [facility] Encounters Encounter Date Encounter Type Care Provider Facility Start: 06-21-2024 End: 06-21-2024 ambulatory MAYELIN PORTILLO Not Available Start: 06-21-2024 End: 06-21-2024 Postop follow up visit related to original px Mayelin PLATA Work Phone: [facility] Comment on above: S/P arthroscopy of r ight shoulder (Primary Dx); Acute pain of right shoulder Start: 06-21-2024 End: 06-21-2024 Bamboo flowsheet Mayelin PLATA Work Phone: [facility] Start: 06-21-2024 End: 06-21-2024 Bamboo flowsheet Mayelin Portillo PA Work Phone: [facility] Start: 06-21-2024 End: 06-21-2024 Telephone encounter Mayelin PLATA Work Phone: [facility] Start: 05-31-2024 End: 05-31-2024 Bamboo flowsheet Mayelin Portillo PA Work Phone: [facility] Start: 05-31-2024 End: 05-31-2024 Bamboo flowsheet Mayelin Portillo PA Work Phone: [facility] Start: 05-31-2024 End: 05-31-2024 Postop follow up visit related to original px Mayelin Portillo PA Work Phone: [facility] Comment on above: S/P arthroscopy of r ight shoulder (Primary Dx) Start: 05-31-2024 End: 05-31-2024 ambulatory MAYELIN PORTILLO Not Available Start: 05-26-2024 End: 05-27-2024 Telephone encounter Myke Lemus NP Work Phone: [facility] Start: 05-13-2024 End: 05-13-2024 Bamboo flowsheet Mayelin Portillo PA Work Phone: [facility] Start: 05-13-2024 End: 05-13-2024 Bamboo flowsheet Mayelin Portillo PA Work Phone: [facility] Start: 05-13-2024 End: 05-13-2024 ambulatory MAYELIN PORTILLO Not Available Start: 05-13-2024 End: 05-13-2024 Postop follow up visit related to original px Mayelin PLATA Work Phone: [facility] Comment on above: Acute pain of right shoulder (Primary Dx); S/P arthroscopy of right shoulder Start: 05-04-2024 End: 05-04-2024 Bamboo flowsheet Mayelin Bravo Bandar PA Work Phone: [facility] Start: 05-04-2024 End: 05-04-2024 Bamboo flowsheet Mayelin Bravo Bandar PA Work Phone: [facility] Start: 05-04-2024 End: 05-04-2024 ambulatory MAYELIN PORTILLO Not Available Start: 05-04-2024 End: 05-04-2024 Postop follow up visit related to original px Mayelin Bravo Bandar PA Work Phone: [facility] Comment on above: S/P arthroscopy of r ight shoulder (Primary Dx) Start: 04-20-2024 End: 04-20-2024 Bamboo flowsheet Mayelin J Bandar PA Work Phone: [facility] Start: 04-20-2024 End: 04-20-2024 Bamboo flowsheet Mayelin J Bandar PA Work Phone: [facility] Start: 04-20-2024 End: 04-20-2024 ambulatory MAYELIN PORTILLO Not Available Start: 04-20-2024 End: 04-20-2024 Postop follow up visit related to original px Mayelin Bravo Bandar PA Work Phone: [facility] Comment on above: S/P arthroscopy of r ight shoulder (Primary Dx) Start: 03-30-2024 End: 03-30-2024 Bamboo flowsheet Mayelin J Bandar PA Work Phone: [facility] Start: 03-30-2024 End: 03-30-2024 Bamboo flowsheet Mayelin Bravo Bandar PA Work Phone: [facility] Start: 03-30-2024 End: 03-30-2024 ambulatory MAYELIN PORTILLO Not Available Start: 03-30-2024 End: 03-30-2024 Postop follow up visit related to original px Mayelin Bravo Bandar PA Work Phone: [facility] Comment on above: S/P arthroscopy of r ight shoulder (Primary Dx) Start: 03-11-2024 End: 03-11-2024 ambulatory MAYELIN PORTILLO Not Available Start: 02-17-2024 End: 02-17-2024 ambulatory ERIC FREEMAN Not Available Start: 01-11-2024 End: 01-11-2024 ambulatory Tatianna Romeo MD Facility:[facility] Start: 12-14-2023 End: 12-14-2023 ambulatory Tatianna Romeo MD Facility:[facility] Start: 12-02-2023 End: 12-02-2023 ambulatory ERIC FREEMAN Not Available Start: 2023 End: 2023 ambulatory Tatianna Romeo MD Facility:[facility] Start: 11-11-2023 End: 11-11-2023 ambulatory ERIC FREEMAN Not Available Start: 11-09-2023 End: 11-09-2023 ambulatory Tatianna Romeo MD Facility:[facility] Start: 10-22-2023 End: 12-09-2023 ambulatory [facility] Start: 10-21-2023 End: 10-21-2023 ambulatory [facility] Start: 10-21-2023 End: 10-21-2023 Office outpatient new 45 minutes [facility] Forrest PA-C Work Phone: [facility] Comment on above: Cervical radiculopat hy (Primary Dx); Degenerative disc disease, cervical; Rotator cuff tear arthropathy of right shoulder Start: 10-09-2023 Telephone encounter [facility] Start: 10-29-2022 End: 10-30-[address] JASON SCRUGGS Facility:[facility] Start: 12-18-2021 End: 12-19-[address] JASON SCRUGGS Facility:[facility] Start: 07-03-2021 End: 07-03-2021 ambulatory Patsy Negrete Other [employer] Other Start: 07-03-2021 Office outpatient vi sit 5 minutes Patys Negrete [facility] Procedures Date Procedure Procedure Detail Performing Clinician Start: 10-21-2023 Adult depression screening assessment Debi Clayton PA-C Work Phone: Plan of Treatment Date Care Activity Detail Author Start: 10-20-2024 Adult BMI Screening Adult BMI Screen ing [facility] Start: 10-20-2024 Depression Screening Depression Scre ening [facility] Start: 10-20-2024 Tobacco Screening Tobacco Screening [facility] Start: 06-14-2024 End: 06-14-2024 Patient encounter procedure 06/14/2024 1:00 PM EST Office Visit [facility] [address] [place] [phone] Mayelin Portillo, PA [address] [facility] [address] [place] [address] [facility] Start: 05-31-2024 End: 05-31-2024 Patient encounter procedure [facility] Comment on above: S/P arthroscopy of r ight shoulder (Primary Dx) Start: 05-04-2024 End: 05-04-2024 Patient encounter procedure 05/04/2024 1:30 PM EDT Office Visit [facility] [address] [place] [phone] Mayelin Portillo, PA [address] [facility] [address] [place] [address] [facility] Start: 04-20-2024 End: 04-20-2024 Patient encounter procedure 04/20/2024 11:00 AM EDT Office Visit [facility] [address] [place] [phone] Mayelin Portillo PA [address] [facility] [address] [place] [address] [facility] Start: 04-10-2024 Influenza vaccination Influenza Vacc ine (#1) [facility] Start: 01-27-2024 End: 01-27-2024 Patient encounter procedure 01/27/2024 1:30 PM EDT Office Visit [facility] [address] [facility] [place] [address] Debi Clayton PA-C [address] [facility] [place] [phone] [facility] Start: 11-11-2023 End: 11-11-2023 Patient encounter procedure 11/11/2023 1:45 PM EDT Appointment [facility] [address] [place] [phone] Cervical radiculopathy [facility] Comment on above: Cervical radiculopat hy Start: 10-30-2023 Adult BMI Screening Adult BMI Screen ing [facility] Start: 10-30-2023 Tobacco Screening Tobacco Screening [facility] Start: 10-21-2023 End: 10-21-2023 Patient encounter procedure 10/21/2023 11:00 AM EDT Office Visit [facility] [address] [facility] [place] [phone] Debi Clayton, CHEN [address] [facility] [place] [phone] [facility] Start: 04-10-2023 COVID-19 Vaccine ( season) COVID-19 Vaccine ( season) [facility] Start: 04-10-2023 Influenza vaccination Influenza Vacc ine [facility] Start: 2014 Screening for malign ant neoplasm of breast Mammogram [facility] Start: 2004 Screening for malign ant neoplasm of cervix [facility] Start: 11-24-1995 Screening for malign ant neoplasm of cervix Pap Smear [facility] Start: 1993 DTaP,Tdap and Td Vaccines (1 - Tdap) DTaP,Tdap and Td Vaccines (1 - Tdap) [facility] Start: 1992 Adult BMI Follow Up Plan Adult BMI Follow Up Plan [facility] Start: 1986 Depression Screening Depression Scre mani [facility] Start: 1974 Screening for malign ant neoplasm of colon [facility] Start: 1974 Tobacco Counseling Tobacco Counselin carleen [facility] Immunizations Immunization Date Immunization Notes Care Provider Vanessa kat 05-09-2021 influenza virus vacc ine, unspecified formulation Shila Son [facility] Payers Date Payer Category Payer Managed Care HMO (unspecified) [id number] 2018 Unknown [id number] 1974 Unknown [id number] 2.16.84 0.1.647263.3.579.2.593 1974 Unknown [id number] 2.16.84 0.1.917493.3.579.2.593 1974 Unknown [id number] 2.16.840.1.165895.3.579.2.1286 1974 Unknown [id number] 2.16.840.1.140149.3.579.2.1286 1974 Unknown [id number] 2.16.840.1.282534.3.579.2.196 1974 Unknown [id number] 2.16.840.1.257563.3.579.2.196 1975 Unknown [id number] 2.16.840.1.280886.3.579.2.196 1974 Unknown [id number] 2.16.840.1.182628.3.579.2.196 1974 Unknown [id number] 2.16.840.1.367531.3.579.2.1259 1974 Unknown [id number] 2.16.840.1.729450.3.579.2.1258 1974 Unknown [id number] 2.16.840.1.343740.3.579.2.1258 1974 Unknown [id number] 2.16.840.1.993326.3.579.2.1258 1974 Unknown [id number] 2.16.840.1.108331.3.579.2.1258 1974 Unknown [id number] 2.16.840.1.853773.3.579.2.1258 1974 Unknown [id number] 2.16.840.1.285538.3.579.2.1258 1974 Unknown [id number] 2.16.840.1.479777.3.579.2.1258 1974 Unknown [id number] 2.16.840.1.845312.3.579.2.1258 1974 Unknown [id number] 2.16.840.1.938410.3.579.2.1258 1974 Unknown [id number] 2.16.840.1.855951.3.579.2.9 1959 Unknown [id number] 2.1 [id number] Social History Date Type Detail Facility Unknown if ever smoked [employer] Other Start: 10-29-2022 End: 03-30-2024 Sex Assigned At [facility] Other Start: 11-15-2018 End: 11-11-2023 Tobacco smoking status HIIS Smokes tobacco daily [facility] History of tobacco use Cigarette Smoker P [facility] Start: 11-15-2018 End: 03-30-2024 Cigarettes smoked current (pack per day) - Reported 1 [facility] Start: 11-15-2018 End: 11-11-2023 Tobacco use and exposure Smokeless tobacco non-user [facility] Childcare Unknown [facility] Start: 11-15-2018 Alcohol Comment rare [facility] Start: 1975 Sex Assigned At Not on file P [facility] Start: 03-11-2024 End: 03-30-2024 Alcoholic beverage intake Current drinker of alcohol (finding) [facility] Start: 11-11-2023 Alcohol Comment 1/MO [facility] Clinical Notes 07-03-2021 to 06-21-2024 Telephone Encounter - Bessie Short - 06/21/2024 3:21 PM ESTTelephone Encounter - Bessie Short - 06/21/2024 3:21 PM ESTBONI Mancera - 06/21/2024 2:30 PM ESTPatient Instructions Note Date & Type Note Facility 06-21-2024 Telephone encounter Note error [facility] 06-21-2024 Miscellaneous Notes error documented in this encounter [facility] 06-21-2024 History of Present illness Narrative HISTORY OF PRESENT ILLNESS: EST PT Lisbeth Sánchez is an 48 y.o. @ female. EST PT S/P (R) SHOULDER SCOPE 03/17/2024 @ABDELRAHMAN (13WKS 5DAYS) - PT ADMITS TO NOT DOING HEP- GOOD ROM- NOTES SOME SORENESS- NO PAIN MEDS- PT SCHEDULED TO RTW 06/29/24 PT HAS FIBROMYALGIA ALLERGIES: Allergies Allergen Reactions Codeine Unknown Other Reaction(s): jittery Tremors HOME MEDICATIONS: Current Outpatient Medications Medication Instructions ebxlfyjdnx-mivlljrpptmoo-miivgoa e (Fioricet) 50-300-40 MG capsule twddwfttly-lbenqllnfebiq-vqqtyvr e 50 mg-300 mg-40 mg capsule take 1 capsule by mouth three times a day if needed for headache cyclobenzaprine (FLEXERIL) 10 mg, Oral, 3 times daily PRN ergocalciferol (Vitamin D2) 1.25 MG (67486 UT) capsule 1 capsule, Oral, Weekly esomeprazole (NexIUM) [address] capsule esomeprazole magnesium 40 mg capsule,delayed release etodolac (Lodine) 400 MG tablet take 1 tablet by mouth with food twice a day NIFEdipine CC (Adalat CC) 60 MG 24 hr tablet take 1 tablet by mouth once daily ON AN EMPTY STOMACH 30 OXcarbazepine (Trileptal) 150 MG tablet Take 1 tablet (150 mg) twice daily for 2 weeks, then increase to 2 tablets (300 mg) twice daily pregabalin (Lyrica) 50 MG capsule take 1 capsule by mouth once daily if needed Savella 100 mg, Oral, 2 times daily PHYSICAL EXAM: Shoulder Musculoskeletal Exam Inspection Right Right shoulder inspection is normal. Ecchymosis: none Peripheral edema: none Atrophy: none Masses: none Prior incision: arthroscopic portals Incision: well-healed Palpation Right Right shoulder palpation is normal. Crepitus: no crepitus Increased warmth: none Tenderness: none Range of Motion Right Right shoulder range of motion is normal. Active ROM: normal and no pain. Passive ROM: normal and no pain. Active forward elevation: 170. Shoulder active abduction: 170. Passive abduction: 180. Active external rotation in abduction: 90. Passive external rotation in abduction: 90. Internal rotation: T11. Strength Right External rotation: 4+/5. Internal rotation: 5/5. Abduction: 4+/5. Biceps: 5/5. Triceps: 5/5. Neurovascular Right Radial pulse: normal and 2+ Capillary refill: <3 sec Axillary nerve sensory distribution: normal Scapula Right Right shoulder scapula is normal. Position: normal Winging: none Special Tests Right Rotator Cuff Signs Neer's test: negative Garces test: negative Biceps/sravan Signs Speed's test: negative AC Joint Signs Active horizontal adduction pain: negative General Constitutional: appears stated age Labored breathing: no Neurological: alert and oriented x3 Vitals: There is no height or weight on file to calculate BMI. Tobacco Use: High Risk (06/21/2024) Patient History Smoking Tobacco Use: Every Day Smokeless Tobacco Use: Never Passive Exposure: Not on file Alcohol Use: Not on file IMAGING: Procedures No orders of the defined types were placed in this encounter. ASSESSMENT: ICD-10-CM 1. S/P arthroscopy of right shoulder Z98.890 2. Acute pain of right shoulder M25.511 S/p: s/p rotator cuff repair and SAD. PLAN: Pt doing well. Still struggles to commit to HEP but has excellent rom.. disucssed HEP for strengthening with band provided.. recommend exercised dailly for supine shoulder and then every other day with band.. pt thankful. Questions answered in laymen terms at the bedside. The diagnosis, home exercise plan and any ongoing restrictions/ recommendations reviewed. If unable to be reached in office, I recommend evaluation at nearest Emergency Room if any symptoms worsened or new symptoms develop for requiring urgent evaluation. documented in this encounter [facility] 05-31-2024 History of Present illness Narrative Images from the original note were not included. HISTORY OF PRESENT ILLNESS: POST OP PT Lisbeth Sánchez is an 48 y.o. @ female. No surgery found s/p surgery onNo surgery found EST PT S/P (R) SHOULDER SCOPE 03/17/2024 @ABDELRAHMAN (10WKS 5DAYS) - S/P HEP- PT STATES SHE HAS NOT BE DOING HEP THE LAST COUPLE OF WEEKS- CONCERNED ABOUT STARTING STRENGTHENING TO SOON- NOTES PAIN- PAIN CAN BE GLOBAL- NO PAIN MEDS - PT NOTES INCREASE ROM- PT IS SCHEDULED TO RTW 06/29/24 REVIEW OF SYSTEMS: General: Denies fever, fatigue or weight loss Lungs: Denies SOB Cardio: Denies chest pain GI: Denies indigestion or abdominal pain Neuro: Denies numbness or tingling, denies new onset paralysis Musculoskeletal: ( see note) PHYSICAL EXAM: Right Shoulder Exam Tenderness The patient is experiencing no tenderness (compartments soft). Range of Motion Right shoulder passive abduction: gentle pendulums easily. Muscle Strength Right shoulder normal muscle strength: Fires deltoid and rotator cuff. Other Erythema: absent Scars: absent (portals well healed) Sensation: normal Pulse: present Comments: Near full PROM with shoulder. + Stiffness on end rom, but full motion present AROM limited to 90 degrees with abduction, but then with verbal encouragement pt able to fully abduct. The operative upper extremity was noted to be neurovascularly unchanged. Sensation to light touch was intact to all dermatomes to operative upper extremity. Radial and ulnar pulses were present and equal bilaterally. Patient was able to motor elbow wrist and fingers in all anatomic planes with 5 out of 5 strength on the operative upper extremity. Compartments were soft to operative upper extremity. There was no evidence of infection or ascending lymphangitis to operative extremity. XR shoulder 2+ views right Imaging Result: scapular Y and AP x-rays of right shoulder showed humeral head to be well centered in the glenoid fossa. There was no evidence of subluxation or dislocation. There was no evidence of degenerative joint disease. Acromioclavicular joint appeared to be well preserved. There was no acute bony process including but not limited to fracture and/or dislocation. Impression: Unremarkable right shoulder. Procedures No orders of the defined types were placed in this encounter. ASSESSMENT: ICD-10-CM 1. S/P arthroscopy of right shoulder Z98.890 S/p: s/p rotator cuff repair and SAD. PLAN: Recheck in 2 wks after her vacation.. discussed importance of continuing with AROM/ PROM HEP even during her travel.. then will start strengthening upon her return. Pt thankful. Est RTW on 06/29/24 without restrictions. ( Pt aware her lack of compliance with HEP, likely contributes to stiffness feeling when she does do motion)- overall I am pleased with her movement given she has had no formal therapy due to cost/ financial- with employer dropping coverage during her time off. Questions answered in laymen terms at the bedside. The diagnosis, home exercise plan and any ongoing restrictions/ recommendations reviewed. If unable to be reached in office, I recommend evaluation at nearest Emergency Room if any symptoms worsened or new symptoms develop for requiring urgent evaluation. documented in this encounter [facility] 05-27-2024 Telephone encounter Note provided [facility] 05-27-2024 Miscellaneous Notes provided Patient requesting work note with RTW date on 06/29/2024 with no restrictions. documented in this encounter [facility] 05-26-2024 Telephone encounter Note Patient requesting work note with RTW date on 06/29/2024 with no restrictions. [facility] Work Phone: 05-13-2024 History of Present illness Narrative Images from the original note were not included. HISTORY OF PRESENT ILLNESS: POST OP PT Lisbeth Sánchez is an 48 y.o. @ female. No surgery found s/p surgery onNo surgery found EST PT S/P (R) SHOULDER SCOPE 03/17/2024 @[facility] (8WKS 1DAYS)- C/O SORENESS- PT STATES SHE IS NERVOUS ABOUT HEP; AFRAID SHE IS GOING TO DAMAGE HER SHOULDER- INCREASE ROM- PT NOTES SOME SHARP PAIN- PT HAS NOT BEEN DOING HEP SHE SHOULD- HAS NOT STARTED STRENGTHENING- +NORCO PRN - PT HAS CONCERNS ABOUT RTW 06/10/24 REVIEW OF SYSTEMS: General: Denies fever, fatigue or weight loss Lungs: Denies SOB Cardio: Denies chest pain GI: Denies indigestion or abdominal pain Neuro: Denies numbness or tingling, denies new onset paralysis Musculoskeletal: ( see note) PHYSICAL EXAM: Right Shoulder Exam Tenderness The patient is experiencing no tenderness (compartments soft). Range of Motion Active abduction: 150 Passive abduction: 160 (gentle pendulums easily) Extension: 60 External rotation: 90 Forward flexion: 150 (PROM if FULL,) Internal rotation 0 degrees: L5 Muscle Strength Right shoulder normal muscle strength: Fires deltoid and rotator cuff. Other Erythema: absent Scars: absent (portals well healed) Sensation: normal Pulse: present Comments: The operative upper extremity was noted to be neurovascularly unchanged. Sensation to light touch was intact to all dermatomes to operative upper extremity. Radial and ulnar pulses were present and equal bilaterally. Patient was able to motor elbow wrist and fingers in all anatomic planes with 5 out of 5 strength on the operative upper extremity. Compartments were soft to operative upper extremity. There was no evidence of infection or ascending lymphangitis to operative extremity. XR shoulder 2+ views right Imaging Result: scapular Y and AP x-rays of right shoulder showed humeral head to be well centered in the glenoid fossa. There was no evidence of subluxation or dislocation. There was no evidence of degenerative joint disease. Acromioclavicular joint appeared to be well preserved. There was no acute bony process including but not limited to fracture and/or dislocation. Impression: Unremarkable right shoulder. Procedures No orders of the defined types were placed in this encounter. ASSESSMENT: ICD-10-CM 1. Acute pain of right shoulder M25.511 2. S/P arthroscopy of right shoulder Z98.890 S/p: s/p rotator cuff repair and SAD. PLAN: Pt doing well. Not doing formal therapy for financial reasons ( currently no insurance coverage)- pt does not want to pay out of pocket.. pt concerned with returning to work at 12 wks with strengthening discussed..Lisbeth Sánchez is familiar with HEP and notes discomfort on end rom and active motion, at bedside her tolerance improves with each rep suggesting stiffness from lack of use.. discussed doing HEP daily, Quality over quantity, and no weight or resistance.. pt admits against medical advice that she has been doing too much with her arm and is afraid she injured it because of the pain she is experiencing it is so hard not to use it.. pt aware time will tell if there is any damage affecting usp healing. Questions answered in laymen terms at the bedside. The diagnosis, home exercise plan and any ongoing restrictions/ recommendations reviewed. If unable to be reached in office, I recommend evaluation at nearest Emergency Room if any symptoms worsened or new symptoms develop for requiring urgent evaluation. documented in this encounter [facility] 05-04-2024 History of Present illness Narrative Images from the original note were not included. HISTORY OF PRESENT ILLNESS: POST OP PT Lisbeth Sánchez is an 48 y.o. @ female. No surgery found s/p surgery onNo surgery found EST PT S/P (R) SHOULDER SCOPE 03/17/2024 @[facility] (6WKS 6DAYS)- CONTINUES HEP - PT NOTICED INCREASE PAIN IN HER BICEP REGION ~1WK AGO SO SHE HELD OFF ON STARTING NEW EXERCISES - STARTED NEW EXERCISES 2DAYS AGO- NOTES SORENESS- PT IS UNCLEAR ABOUT HER RESTRICTIONS AND HOW MUCH SHE CAN LIFT- +NORCO PRN REVIEW OF SYSTEMS: General: Denies fever, fatigue or weight loss Lungs: Denies SOB Cardio: Denies chest pain GI: Denies indigestion or abdominal pain Neuro: Denies numbness or tingling, denies new onset paralysis Musculoskeletal: ( see note) PHYSICAL EXAM: Right Shoulder Exam Tenderness The patient is experiencing no tenderness (compartments soft). Range of Motion Active abduction: 80 Passive abduction: 160 (gentle pendulums easily) Extension: 60 External rotation: 90 Forward flexion: 80 (PROM 170) Muscle Strength Right shoulder normal muscle strength: Fires deltoid and rotator cuff. Other Erythema: absent Scars: absent (portals well healed) Sensation: normal Pulse: present Comments: The operative upper extremity was noted to be neurovascularly unchanged. Sensation to light touch was intact to all dermatomes to operative upper extremity. Radial and ulnar pulses were present and equal bilaterally. Patient was able to motor elbow wrist and fingers in all anatomic planes with 5 out of 5 strength on the operative upper extremity. Compartments were soft to operative upper extremity. There was no evidence of infection or ascending lymphangitis to operative extremity. XR shoulder 2+ views right Imaging Result: scapular Y and AP x-rays of right shoulder showed humeral head to be well centered in the glenoid fossa. There was no evidence of subluxation or dislocation. There was no evidence of degenerative joint disease. Acromioclavicular joint appeared to be well preserved. There was no acute bony process including but not limited to fracture and/or dislocation. Impression: Unremarkable right shoulder. Procedures No orders of the defined types were placed in this encounter. ASSESSMENT: ICD-10-CM 1. S/P arthroscopy of right shoulder Z98.890 S/p: s/p rotator cuff repair and SAD. PLAN: Pt will increase HEP to 2-3 times a day.. with ice.. discussed not lifting anything heavier than coffee cup and avoiding excessive repetition with ADLs.. pt verbalized understanding.. making great progress. Has cruise upcoming. Questions answered in laymen terms at the bedside. The diagnosis, home exercise plan and any ongoing restrictions/ recommendations reviewed. If unable to be reached in office, I recommend evaluation at nearest Emergency Room if any symptoms worsened or new symptoms develop for requiring urgent evaluation. documented in this encounter [facility] 04-20-2024 History of Present illness Narrative Images from the original note were not included. HISTORY OF PRESENT ILLNESS: POST OP PT Lisbeth Sánchez is an 48 y.o. @ female. EST PT S/P (R) SHOULDER SCOPE 03/17/2024 @[facility] (4WKS 6DAYS)- DOING WELL- NOTES SOME BICEP PAIN- WEARING SLING- DOES HEP; INCREASE ROM- HAS NOT STARTED STRENGTHENING- +NORCO REVIEW OF SYSTEMS: General: Denies fever, fatigue or weight loss Lungs: Denies SOB Cardio: Denies chest pain GI: Denies indigestion or abdominal pain Neuro: Denies numbness or tingling, denies new onset paralysis Musculoskeletal: ( see note) PHYSICAL EXAM: Right Shoulder Exam Tenderness The patient is experiencing no tenderness (compartments soft). Range of Motion Active abduction: 40 Passive abduction: 110 (gentle pendulums easily) Extension: 50 External rotation: 60 Right shoulder forward flexion: PROM- 150. Muscle Strength Right shoulder normal muscle strength: Fires deltoid and rotator cuff. Other Erythema: present (erythema, appears allergic to ulnar radial aspect of distal forearm from sling. puritic.) Scars: absent (portals well healed) Sensation: normal Pulse: present Comments: The operative upper extremity was noted to be neurovascularly unchanged. Sensation to light touch was intact to all dermatomes to operative upper extremity. Radial and ulnar pulses were present and equal bilaterally. Patient was able to motor elbow wrist and fingers in all anatomic planes with 5 out of 5 strength on the operative upper extremity. Compartments were soft to operative upper extremity. There was no evidence of infection or ascending lymphangitis to operative extremity. XR shoulder 2+ views right Imaging Result: scapular Y and AP x-rays of right shoulder showed humeral head to be well centered in the glenoid fossa. There was no evidence of subluxation or dislocation. There was no evidence of degenerative joint disease. Acromioclavicular joint appeared to be well preserved. There was no acute bony process including but not limited to fracture and/or dislocation. Impression: Unremarkable right shoulder. Procedures No orders of the defined types were placed in this encounter. ASSESSMENT: ICD-10-CM 1. S/P arthroscopy of right shoulder Z98.890 S/p: s/p rotator cuff repair and SAD. PLAN: Pt doing HEP: Declined formal therapy citing no insurance coverage/ cost. Will dc sling today giveb skin irritation.. for 1 wk cont prom and may start gentle assisted AROM, recheck in 2 wks to start full PROM and AROM, no lifting anything heavier than a coffee cup. Pt thankful. Reviewed HEP at bedside with detailed hand out. Questions answered in laymen terms at the bedside. The diagnosis, home exercise plan and any ongoing restrictions/ recommendations reviewed. If unable to be reached in office, I recommend evaluation at nearest Emergency Room if any symptoms worsened or new symptoms develop for requiring urgent evaluation. documented in this encounter [facility] 03-30-2024 History of Present illness Narrative Images from the original note were not included. HISTORY OF PRESENT ILLNESS: POST OP PT Lisbeth Sánchez is an 48 y.o. @ female. EST PT 1ST P/O (R) SHOULDER SCOPE 03/17/2024 @[facility] (13DAYS) DOING WELL, SUTURE PRESENT, NO S/S OF INFECTION. NO N/T. SLING PULLING ON NECK AFFECTING MY FIBROMYALGIA . NORCO PRN PAIN. MOST DIFFICULTY IS SLEEPING. TRANSIENT HAND SWELLING YESTERDAY, RESOLVED WITH HEP. REVIEW OF SYSTEMS: General: Denies fever, fatigue or weight loss Lungs: Denies SOB Cardio: Denies chest pain GI: Denies indigestion or abdominal pain Neuro: Denies numbness or tingling, denies new onset paralysis Musculoskeletal: ( see note) PHYSICAL EXAM: Right Shoulder Exam Tenderness The patient is experiencing no tenderness (compartments soft). Range of Motion Right shoulder passive abduction: gentle pendulums easily. Muscle Strength Right shoulder normal muscle strength: Fires deltoid and rotator cuff, pendulums easily. Other Erythema: absent Scars: present (Portals well healing, sutures removed, no erythema, drainge or discharge, no dehisence) Sensation: normal Pulse: present Comments: The operative upper extremity was noted to be neurovascularly unchanged. Sensation to light touch was intact to all dermatomes to operative upper extremity. Radial and ulnar pulses were present and equal bilaterally. Patient was able to motor elbow wrist and fingers in all anatomic planes with 5 out of 5 strength on the operative upper extremity. Compartments were soft to operative upper extremity. There was no evidence of infection or ascending lymphangitis to operative extremity. XR shoulder 2+ views right Imaging Result: scapular Y and AP x-rays of right shoulder showed humeral head to be well centered in the glenoid fossa. There was no evidence of subluxation or dislocation. There was no evidence of degenerative joint disease. Acromioclavicular joint appeared to be well preserved. There was no acute bony process including but not limited to fracture and/or dislocation. Impression: Unremarkable right shoulder. Procedures No orders of the defined types were placed in this encounter. ASSESSMENT: ICD-10-CM 1. S/P arthroscopy of right shoulder Z98.890 S/p: s/p rotator cuff repair and SAD. PLAN: Pt Declines formal therapy, states he work will drop her insurance coverage until she return to work.. request pain med refill for sleep/ therapy exercises... Discussed HEP for PROM, Pt will look into getting [facility] to cont HEP Discussed Passive only stretches 2-3 times a day 10 reps with quality over quantiy.. pt cautioned not to use operative arm to lifting things, just because it is in a sling.. pt verbalized understanding for optimal healing and my concerns of possible frozen shoulder without help therapist for Passive range of motion in first 6 wks. NO AROM, no Strengthening, Questions answered in laymen terms at the bedside. The diagnosis, home exercise plan and any ongoing restrictions/ recommendations reviewed. If unable to be reached in office, I recommend evaluation at nearest Emergency Room if any symptoms worsened or new symptoms develop for requiring urgent evaluation. documented in this encounter [facility] 03-30-2024 Instructions BONI Mancera - 03/30/2024 9:30 AM EDT Discussed patient being 2 wks s/p Rotator cuff surgery: surgery discussed at bedside. Continue in sling until follow up to protect repair. ( 6 wks post op) May remove sling to shower and change clothing. Also remove sling 2- 3 times a day to continue home exercises for hand, wrist and elbow range of motion. No weight in operative arm. No lifting anything heavier than coffee cup. Referral for Therapy given/sent electronically, please call Therapy facility to schedule as soon as possible documented in this encounter [facility] 10-21-2023 History of Present illness [facility] 10/21/2023 9:04 AM Patient info: Lisbeth Sánchez is a 47 y.o. female Account No.: [id number] Acct: : 1975 PCP: JASON SCRUGGS DO [...] of the infraspinatus tendon. Intact biceps tendon. [id number]-[id number] acromioclavicular osteoarthritis. Moderate glenohumeral osteoarthritis with posterior [...] Electronically Signed by: Debi Clayton PA-C 10/22/23 09 documented in this encounter [facility] 10-09-2023 Miscellaneous Notes Please ask the following questions to the new patient that you are schedulin. IS THIS DUE TO AN ACCIDENT? - NO 2. IS THIS WORKER'S COMP? PLEASE VERIFY IF THIS IS WORKERS COMP AND DOCUMENT (We do not accept any new workers comp cases) - NO 3. WHAT INSURANCE? - [facility] 4. HAVE YOU EVER BEEN SEEN BY A NEUROLOGIST BEFORE? IF YES, WHO AND WHEN? IS THIS A SECOND OPINION? - YES, DOES NOT REMEMBER 5. PATIENT IS SCHEDULED ON/WITH: - 10/20 AR 11AM WITH DEBI CLAYTON documented in this encounter [facility] 10-09-2023 Telephone encounter Note Please ask the following questions to the new patient that you are schedulin. IS THIS DUE TO AN ACCIDENT? - NO 2. IS THIS WORKER'S COMP? PLEASE VERIFY IF THIS IS WORKERS COMP AND DOCUMENT (We do not accept any new workers comp cases) - NO 3. WHAT INSURANCE? - [facility] 4. HAVE YOU EVER BEEN SEEN BY A NEUROLOGIST BEFORE? IF YES, WHO AND WHEN? IS THIS A SECOND OPINION? - YES, DOES NOT REMEMBER 5. PATIENT IS SCHEDULED ON/WITH: - 10/20 AR 11AM WITH DEBI CLAYTON [facility] 07-03-2021 Evaluation note Encounter Date Diagnosis Assessment [...] Patient care instructions given in writting by [facility] document. [employer] Other Evaluation note* Diagnosis Cervical radiculopathy- Primary Brachial neuritis or radiculitis nos Degenerative disc disease, cervical Rotator cuff tear arthropathy of right shoulder Cervical radiculopathy Brachial neuritis or radiculitis nos [facility]* Diagnosis Acute pain of right shoulder- Primary S/P arthroscopy of right shoulder documented in this encounter [facility]* Diagnosis S/P arthroscopy of right shoulder- Primary documented in this encounter [facility] note* Diagnosis S/P arthroscopy of right shoulder- Primary Acute pain of right shoulder documented in this encounter [facility] Healthcare[facility] note* Diagnosis S/P arthroscopy of right shoulder- Primary documented in this encounter [facility] HealthcareHistory general Narrative - Reported* Type Description Date Medical History migraine headache Medical History back pain Medical History fibromyalgia Medical History raynauds syndrome [employer] Other InstructionsNot on filedocumented in this encounter [facility] System[facility]Not on filedocumented in this encounter [facility] Summary Purpose Family History No Family History Records FoundNo Family History Records FoundNo Family History Records FoundNo Family History Records Found Advance Directives No Advanced Directives Records FoundNo Advanced Directives Records FoundNo Advanced Directives Records FoundNo Advanced Directives Records Found Reason for Referral Specialty Diagnoses / Procedures Referred By Oralia ford Referred To Contact Diagnoses S/P arthroscopy of right shoulder Mayelin Portillo PA [address] [facility] [address] [place] [address] Referral ID Status Reason Start Date Expiration Date V isits Requested Visits Authorized [id number] Pending Review 03/30/2024 09/26/2024 1 1 Specialty Diagnoses / Procedures Referred By Oralia ford Referred To Contact Rehabilitation Diagnoses Cervical radiculopathy Debi Clayton PA-C [address] [facility] [place] [address] [facility] [address] [place] [id number] Referral ID Status Reason Start Date Expiration Date V isits Requested Visits Authorized [id number] Closed Specialty Services Required 10/21/2023 10/20/2024 1 [...] herniated disc Jason Scruggs DO [address] [place] [address] [facility] [address] [place] [address] Referral ID Status Reason Start Date Expiration Date Visits Requested Visits Authorized [id number] Pending Review Specialty Services Required 10/06/2023 10/05/2024 1 1 Reason Comments Pain INFORMATION SOURCE (unrecogn ized section and content) DATE CREATED AUTHOR 11/02/2022 [facility] DATE CREATED AUTHOR AUTHOR'S ORGANIZ ATION 12/10/2023 [facility] DATE CREATED AUTHOR AUTHOR'S ORGANIZ ATION 01/19/2024 [facility] DATE CREATED AUTHOR AUTHOR'S ORGANIZ ATION 06/23/2024 [facility] dical Specialists EP[employer] Care Teams (unrecognized sec tion and content) 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 Start Date End Date Jason Scruggs DO [address] [place] [address] PCP - General Family Medicine 11/08/18 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 Start Date End Date Jason Scruggs DO [address] [place] [address] PCP - General Family Medicine 11/08/18 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 Start Date End Date Jason Scruggs MD [address] [place] [address] PCP - General Family Medicine 02/17/24 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 Start Date End Date Jason Scruggs MD [address] [place] [address] PCP - General Family Medicine 02/17/24 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 Start Date End Date Jason Scruggs MD [address] [place] [address] PCP - General Family Medicine 02/17/24 [employer]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 Start Date End Date Jason Scruggs MD [address] [place] [address] PCP - General Family Medicine 02/17/24 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 Start Date End Date Jason Scruggs MD [address] [place] [address] PCP - General Family Medicine 02/17/24 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 [facility] [employer] [facility]. provides no warranty or guarantee of the accuracy or completeness of information in this document.
--- NOTE | 2024-09-07 13:40 | XR_ITS ---
The [address] [address] Patient Name: LISBETH RAO MRN: [id number] date: 1975 Sex: F Assigned Patient Location: [facility] Current Patient Location: [facility] Accession/Order Number: [id number] Exam Date: 09/07/2024 13:29 Report Date: 09/07/2024 13:58 At the request of: JOLENE SCRUGGS Procedure: XR DEXA axial skeleton EXAMINATION: XR DEXA axial skeleton HISTORY: Asymptomatic Menopausal State COMPARISON: No relevant comparison available. TECHNIQUE: Dual-energy X-ray absorptiometry (DXA) was performed. FINDINGS: SPINE ANALYSIS: Average bone mineral density is 1.419 g/cm2. T-score (standard deviation relative to young adult mean): 2.0 . HIP ANALYSIS: Lowest bone mineral density is within the left femoral neck, 1.001 g/cm2. T-score (standard deviation relative to young adult mean): -0.3 . XR/XR DEXA axial skeleton IMPRESSION: World Health Organization Classification: Normal - Low Fracture Risk FRAX: Cannot be calculated. Pharmacologic treatment recommendations * No uniform recommendation applies to all patients. Management plans must be individualized. * Consider initiating pharmacologic treatment in postmenopausal women and men >= 50 years of age who have the following: Primary fracture prevention: * T-score <= - 2.5 at the femoral neck, total hip, lumbar spine, 33% radius (some uncertainty with existing data) by DXA. * Low bone mass (osteopenia: T-score between - 1.0 and - 2.5) at the femoral neck or total hip by DXA with a 10-year hip fracture risk >= 3% or a 10-year major osteoporosis-related fracture risk >= 20% (i.e., clinical vertebral, hip, forearm, or proximal humerus) based on the [place]-adapted FRAXregistered model. Secondary fracture prevention: * Fracture of the hip or vertebra regardless of BMD [4, 5]. * Fracture of proximal humerus, pelvis, or distal forearm in persons with low bone mass (osteopenia: T-score between - 1.0 and - 2.5). The decision to treat should be individualized in persons with a fracture of the proximal humerus, pelvis, or distal forearm who do not have osteopenia or low BMD [12, 13]. Sarath MS, Johanny SL, Benigno KL, Stefano EM, Ash KG, AJ, Fidencio ES. The clinician's guide to prevention and treatment of osteoporosis. Osteoporos Int. 2021;33(10):7503-9853. doi: 10.1007/l38810-885-07074-r. Epub 2021Dec 05. Erratum in: Osteoporos Int. 2021Mar 06;: PMID: [id number]; PMCID: [id number]. Electronically authenticated by: PETE COPE Date: 09/07/2024 13:58
== END 2024-09-07 13:17 | disposition home or self-care (01) ==
LOC: RAD 13:17
PROVIDERS: PCP Family Medicine; Visit Provider Family Medicine
DX: Z78.0 Asymptomatic menopausal state (principal); N63.12 Unspecified lump in the right breast, upper inner quadrant
CPT/HCPCS: 76642; 77066; 77080; G0279

== ENCOUNTER 2024-09-07 14:26 | Outpatient (OUT) | payer OTHER, SELFPAY ==
[2024-09-07 14:48] LABS: Basophils Absolute Auto 0.1 10^3/uL (0.0-0.1); Basophils Percent Auto 0.5 % (0.2-2.0); Eosinophils Absolute Auto 0.1 10^3/uL (0.0-0.7); Eosinophils Percent Auto 1.5 % (0.9-7.0); Hematocrit 44.5 % (36.0-48.0); Hemoglobin 15.1 g/dL (12.0-16.0); Immature Granulocytes Abs Auto 0.05 10^3/uL (0.00-0.03); Immature Granulocytes Pct Auto 0.5 % (0.0-0.5); Lymphocytes Absolute Auto 3.5 10^3/uL (1.2-3.8); Lymphocytes Percent Auto 38.6 % (20.5-60.0); Mean Corpuscular HGB Conc 33.9 g/dL (29.9-35.2); Mean Corpuscular Hemoglobin 32.8 pg (26.7-34.0); Mean Corpuscular Volume 96.7 fL (81.0-99.0); Mean Platelet Volume 10.7 fL (9.5-13.5); Monocytes Absolute Auto 0.7 10^3/uL (0.3-0.8); Monocytes Percent Auto 7.7 % (1.7-12.0); Neutrophils Absolute Auto 4.7 10^3/uL (1.4-6.5); Neutrophils Percent Auto 51.2 % (43.0-75.0); Platelet Count 224 10^3/uL (150-450); Red Cell Distribution Width 11.9 % (11.0-15.0); White Blood Count 9.1 10^3/uL (4.0-11.0)
--- OUTSIDE RECORDS SUMMARY | 2024-09-07 14:49 | XMS_ITS | CCD ---
Author Organization [facility] Care Team Providers Care Teacher Of [employer] Emotionally Dist[employer] Name Role Phone Patsy Negrete Unavailable SCRUGGS, [...] Primary Care Provider DEBI CLAYTON Attending Unavailable SCRUGGSJASON Referring Unavailable SCRUGGSJASON Primary Care Unavailable DEBI CLAYTON Referring Unavailable SCRUGGSJASON Primary Care Unavailable Agueda MILNER, Tatianna Garsia Attending Unavailable Agueda MILNER, Tatianna Garsia Attending Unavailable Agueda MILNER, Tatianna Garsia Attending Unavailable Agueda MILNER, Juanrius Garsia Attending Unavailable Scruggs Jason MILNER Primary Care Provider [phone] JR. ALEJANDRA, ERIC Diop Attending Unavaila tony [...] Codeine; Translations: [CODEINE] Drug Allergy 3 [facility] Repository (20 sources) Codeine Drug Allergy 9 Other (See Comments), Unknown [employer] Work Phone: Medications Current Medications Medication [...] every six hours for pain HYDROcodone-acetami nophen (Leblanc) 5-325 MG tablet Indications: S/P arthroscopy of [...] 12 hrs for 7 days Oct, Active Bdjbcviktt-GSEY-Gbdn eine (1 source) Butalbital-APAP- Caf feine Active [...] every week ergocalciferol (Vitamin D2) 1.25 MG (63649 UT) capsule Take 1 capsule by mouth [...] bedtime. 10/23/2023 Active take 1 tablet by [facility] morning, then take 1 tablet [...] (4 sources) Start: 12-24-2018 End: 10-21-2023 take [id number] tablet by mouth twice daily busPIRone (BUSPAR) [...] CSPINE WO [facility] HISTORY: Cervical radiculopathy , [...] PETE COPE Date: 2022-10-29 09:18 Normal [facility] MAMM SCREEN 3D ANISH CADon 12-18-2021 MAMM SCREEN 3D ANISH CAD Patient: LISBETH SÁNCHEZ Exam Date: 12/18/2021 : 1975 Gender:F Ordering : DR JASON SCRUGGS D.O. Admission #: [id number] Family : Order #: [id number] CLICK HERE TO VIEW EXAM RADIOLOGY REPORT [...] colon,uterine cancer at age 49. LOCATION: [facility] BREAST COMPOSITION: Heterogeneously dense,which may obscure small [...] Harris MD on 12/18/2021 at 14:31 Normal [facility] COVID Quick Testingon 2020 Result Negative [employer] Other Vital Signs Date Time Vital Sign Value Performing Clinician Narinder vasquez 10-21-2023 11:03-0400 Body height 157.5 cm Debi PLATA-C Work Phone: [employer] 10-21-2023 11:03-0400 Body mass index (BMI) [Ratio] 28.83 kg/m2 Debi PLATA-C Work Phone: [employer] 10-21-2023 11:03-0400 Body weight 71.49 kg Debi PLATA-C Work Phone: [employer] 10-21-2023 11:03-0400 Diastolic blood pressure 85 mm[Hg] Debi Clayton BONI-C Work Phone: [employer] 10-21-2023 11:03-0400 Heart rate 101 /min Debi PLATA-C Work Phone: [employer] 10-21-2023 11:03-0400 Systolic blood pressure 167 mm[Hg] Debi Clayton BONI-C Work Phone: [employer] Encounters Encounter Date Encounter Type Care Provider Facility Start: 06-21-2024 End: 06-21-2024 ambulatory MAYELIN PORTILLO Not Available Start: 06-21-2024 End: 06-21-2024 Postop follow up visit related to original px Mayelin PLATA Work Phone: [facility] Comment on above: S/P arthroscopy of r ight shoulder (Primary Dx); Acute pain of right shoulder Start: 06-21-2024 End: 06-21-2024 Bamboo flowsheet Mayelin PLATA Work Phone: [facility] Start: 06-21-2024 End: 06-21-2024 Bamboo flowsheet Mayelin Portillo PA Work Phone: [facility] Start: 06-21-2024 End: 06-21-2024 Telephone encounter Mayelin PLATA Work Phone: [facility] Start: 05-31-2024 End: 05-31-2024 Bamboo flowsheet Mayelin Portillo PA Work Phone: [facility] Start: 05-31-2024 End: 05-31-2024 Bamboo flowsheet Mayelin Portillo PA Work Phone: [facility] Start: 05-31-2024 End: 05-31-2024 Postop follow up visit related to original px Mayelin Portillo PA Work Phone: [facility] Comment on above: S/P arthroscopy of r ight shoulder (Primary Dx) Start: 05-31-2024 End: 05-31-2024 ambulatory MAYELIN PORTILLO Not Available Start: 05-26-2024 End: 05-27-2024 Telephone encounter Myke Lemus NP Work Phone: [facility] Start: 05-13-2024 End: 05-13-2024 Bamboo flowsheet Mayelin Portillo PA Work Phone: [facility] Start: 05-13-2024 End: 05-13-2024 Bamboo flowsheet Mayelin Portillo PA Work Phone: [facility] Start: 05-13-2024 End: 05-13-2024 ambulatory MAYELIN PORTILLO Not Available Start: 05-13-2024 End: 05-13-2024 Postop follow up visit related to original px Mayelin PLATA Work Phone: [facility] Comment on above: Acute pain of right shoulder (Primary Dx); S/P arthroscopy of right shoulder Start: 05-04-2024 End: 05-04-2024 Bamboo flowsheet Mayelin Bravo Bandar PA Work Phone: [facility] Start: 05-04-2024 End: 05-04-2024 Bamboo flowsheet Mayelin Bravo Bandar PA Work Phone: [facility] Start: 05-04-2024 End: 05-04-2024 ambulatory MAYELIN PORTILLO Not Available Start: 05-04-2024 End: 05-04-2024 Postop follow up visit related to original px Mayelin Bravo Bandar PA Work Phone: [facility] Comment on above: S/P arthroscopy of r ight shoulder (Primary Dx) Start: 04-20-2024 End: 04-20-2024 Bamboo flowsheet Mayelin J Bandar PA Work Phone: [facility] Start: 04-20-2024 End: 04-20-2024 Bamboo flowsheet Mayelin J Bandar PA Work Phone: [facility] Start: 04-20-2024 End: 04-20-2024 ambulatory MAYELIN PORTILLO Not Available Start: 04-20-2024 End: 04-20-2024 Postop follow up visit related to original px Mayelin Bravo Bandar PA Work Phone: [facility] Comment on above: S/P arthroscopy of r ight shoulder (Primary Dx) Start: 03-30-2024 End: 03-30-2024 Bamboo flowsheet Mayelin J Bandar PA Work Phone: [facility] Start: 03-30-2024 End: 03-30-2024 Bamboo flowsheet Mayelin Bravo Bandar PA Work Phone: [facility] Start: 03-30-2024 End: 03-30-2024 ambulatory MAYELIN PORTILLO Not Available Start: 03-30-2024 End: 03-30-2024 Postop follow up visit related to original px Mayelin Bravo Bandar PA Work Phone: [facility] Comment on above: S/P arthroscopy of r ight shoulder (Primary Dx) Start: 03-11-2024 End: 03-11-2024 ambulatory MAYELIN PORTILLO Not Available Start: 02-17-2024 End: 02-17-2024 ambulatory ERIC FREEMAN Not Available Start: 01-11-2024 End: 01-11-2024 ambulatory Tatianna Romeo MD Facility:[facility] Start: 12-14-2023 End: 12-14-2023 ambulatory Tatianna Romeo MD Facility:[facility] Start: 12-02-2023 End: 12-02-2023 ambulatory ERIC FREEMAN Not Available Start: 2023 End: 2023 ambulatory Tatianna Romeo MD Facility:[facility] Start: 11-11-2023 End: 11-11-2023 ambulatory ERIC FREEMAN Not Available Start: 11-09-2023 End: 11-09-2023 ambulatory Tatianna Romeo MD Facility:[facility] Start: 10-22-2023 End: 12-09-2023 ambulatory [facility] Start: 10-21-2023 End: 10-21-2023 ambulatory [facility] Start: 10-21-2023 End: 10-21-2023 Office outpatient new 45 minutes [facility] Forrest PA-C Work Phone: [facility] Comment on above: Cervical radiculopat hy (Primary Dx); Degenerative disc disease, cervical; Rotator cuff tear arthropathy of right shoulder Start: 10-09-2023 Telephone encounter [facility] Start: 10-29-2022 End: 10-30-[address] JASON SCRUGGS Facility:[facility] Start: 12-18-2021 End: 12-19-[address] JASON SCRUGGS Facility:[facility] Start: 07-03-2021 End: 07-03-2021 ambulatory Patsy Negrete Other [employer] Other Start: 07-03-2021 Office outpatient vi sit 5 minutes Patsy Negrete [facility] Procedures Date Procedure Procedure Detail Performing Clinician Start: 10-21-2023 Adult depression screening assessment Debi Clayton PA-C Work Phone: Plan of Treatment Date Care Activity Detail Author Start: 10-20-2024 Adult BMI Screening Adult BMI Screen ing [facility] Start: 10-20-2024 Depression Screening Depression Scre ening [facility] Start: 10-20-2024 Tobacco Screening Tobacco Screening [facility] Start: 06-14-2024 End: 06-14-2024 Patient encounter procedure 06/14/2024 1:00 PM EST Office Visit [facility] [address] [place] [phone] Mayelin Portillo, PA [address] [facility] [address] [place] [address] [facility] Start: 05-31-2024 End: 05-31-2024 Patient encounter procedure [facility] Comment on above: S/P arthroscopy of r ight shoulder (Primary Dx) Start: 05-04-2024 End: 05-04-2024 Patient encounter procedure 05/04/2024 1:30 PM EDT Office Visit [facility] [address] [place] [phone] Mayelin Portillo, PA [address] [facility] [address] [place] [address] [facility] Start: 04-20-2024 End: 04-20-2024 Patient encounter procedure 04/20/2024 11:00 AM EDT Office Visit [facility] [address] [place] [phone] Mayelin Portillo PA [address] [facility] [address] [place] [address] [facility] Start: 04-10-2024 Influenza vaccination Influenza Vacc ine (#1) [facility] Start: 01-27-2024 End: 01-27-2024 Patient encounter procedure 01/27/2024 1:30 PM EDT Office Visit [facility] [address] [place] [address] Debi Clayton PA-C [address] [facility] [place] [phone] [facility] Start: 11-11-2023 End: 11-11-2023 Patient encounter procedure 11/11/2023 1:45 PM EDT Appointment [facility] [address] [place] [phone] Cervical radiculopathy [facility] Comment on above: Cervical radiculopat hy Start: 10-30-2023 Adult BMI Screening Adult BMI Screen ing [facility] Start: 10-30-2023 Tobacco Screening Tobacco Screening [facility] Start: 10-21-2023 End: 10-21-2023 Patient encounter procedure 10/21/2023 11:00 AM EDT Office Visit [facility] [address] [place] [phone] Debi Clayton, CHEN [address] [facility] [place] [phone] [facility] Start: 04-10-2023 COVID-19 Vaccine ( season) COVID-19 Vaccine ( season) [facility] Start: 04-10-2023 Influenza vaccination Influenza Vacc ine [facility] Start: 2014 Screening for malign ant neoplasm of breast Mammogram [facility] Start: 2004 Screening for malign ant neoplasm of cervix [facility] Start: 11-24-1995 Screening for malign ant neoplasm of cervix Pap Smear [facility] Start: 1993 DTaP,Tdap and Td Vaccines (1 - Tdap) DTaP,Tdap and Td Vaccines (1 - Tdap) [facility] Start: 1992 Adult BMI Follow Up Plan Adult BMI Follow Up Plan [facility] Start: 1986 Depression Screening Depression Scre mani [facility] Start: 1974 Screening for malign ant neoplasm of colon [facility] Start: 1974 Tobacco Counseling Tobacco Counselin carleen [facility] Immunizations Immunization Date Immunization Notes Care Provider Vanessa kat 05-09-2021 influenza virus vacc ine, unspecified formulation Shila Son [facility] Payers Date Payer Category Payer Managed Care HMO (unspecified) [id number] 2018 Unknown [id number] 1974 Unknown [id number] 2.16.84 0.1.864532.3.579.2.593 1974 Unknown [id number] 2.16.84 0.1.783893.3.579.2.593 1974 Unknown [id number] 2.16.840.1.728725.3.579.2.1286 1974 Unknown [id number] 2.16.840.1.516655.3.579.2.1286 1974 Unknown [id number] 2.16.840.1.819558.3.579.2.196 1974 Unknown [id number] 2.16.840.1.085044.3.579.2.196 1974 Unknown [id number] 2.16.840.1.984940.3.579.2.196 1974 Unknown [id number] 2.16.840.1.336707.3.579.2.196 1974 Unknown [id number] 2.16.840.1.256885.3.579.2.1259 1974 Unknown [id number] 2.16.840.1.404086.3.579.2.1258 1974 Unknown [id number] 2.16.840.1.729214.3.579.2.1258 1974 Unknown [id number] 2.16.840.1.066811.3.579.2.1258 1974 Unknown [id number] 2.16.840.1.474812.3.579.2.1258 1974 Unknown [id number] 2.16.840.1.552181.3.579.2.1258 1974 Unknown [id number] 2.16.840.1.977803.3.579.2.1258 1974 Unknown [id number] 2.16.840.1.882436.3.579.2.1258 1974 Unknown [id number] 2.16.840.1.814265.3.579.2.1258 1974 Unknown [id number] 2.16.840.1.226249.3.579.2.1258 1974 Unknown [id number] 2.16.840.1.569786.3.579.2.9 1959 Unknown [id number] 2.1 [id number] Social History Date Type Detail Facility Unknown if ever smoked [employer] Other Start: 10-29-2022 End: 03-30-2024 Sex Assigned At [facility] Start: 11-15-2018 End: 11-11-2023 Tobacco smoking status IDIS Smokes tobacco daily [facility] History of tobacco use Cigarette Smoker P [facility] Start: 11-15-2018 End: 03-30-2024 Cigarettes smoked current (pack per day) - Reported 1 [facility] Start: 11-15-2018 End: 11-11-2023 Tobacco use and exposure Smokeless tobacco non-user [facility] Childcare Unknown [facility] Start: 11-15-2018 Alcohol Comment rare [facility] Start: 1975 Sex Assigned At Not on file P [facility] Start: 03-11-2024 End: 03-30-2024 Alcoholic beverage intake Current drinker of alcohol (finding) [facility] Start: 11-11-2023 Alcohol Comment 1/MO [facility] Clinical Notes 07-03-2021 to 06-21-2024 Telephone Encounter - Bessie Short - 06/21/2024 3:21 PM ESTTelephone Encounter - Bessie Short - 06/21/2024 3:21 PM ESTBONI Mancera - 06/21/2024 2:30 PM ESTPatient Instructions Note Date & Type Note Facility 06-21-2024 Telephone encounter Note error [facility] 06-21-2024 Miscellaneous Notes error documented in this encounter [facility] 06-21-2024 History of Present illness Narrative HISTORY [...] HOME MEDICATIONS: Current Outpatient Medications Medication Instructions jtlyhsugso-dyctuvobdkswk-encpcoq e (Fioricet) 50-300-40 MG capsule flfcyfqdyr-yfytneuvwsavp-tgxwofe e 50 mg-300 mg-40 mg capsule take 1 capsule by mouth three times a day if needed for headache cyclobenzaprine (FLEXERIL) 10 mg, Oral, 3 times daily PRN ergocalciferol (Vitamin D2) 1.25 MG (10198 UT) capsule 1 capsule, Oral, Weekly esomeprazole [...] requiring urgent evaluation. documented in this encounter [facility] 05-31-2024 History of Present illness Narrative Images [...] requiring urgent evaluation. documented in this encounter [facility] 05-27-2024 Telephone encounter Note provided [facility] 05-27-2024 Miscellaneous Notes provided Patient requesting work note with RTW date on 06/29/2024 with no restrictions. documented in this encounter [facility] 05-26-2024 Telephone encounter Note Patient requesting work note with RTW date on 06/29/2024 with no restrictions. [facility] Work Phone: 05-13-2024 History of Present illness [...] tell if there is any damage affecting nursing home healing. Questions answered in laymen terms at the bedside. The diagnosis, home exercise plan and any ongoing restrictions/ recommendations reviewed. If unable to be reached in office, I recommend evaluation at nearest Emergency Room if any symptoms worsened or new symptoms develop for requiring urgent evaluation. documented in this encounter [facility] 05-04-2024 History of Present illness Narrative Images [...] requiring urgent evaluation. documented in this encounter [facility] 04-20-2024 History of Present illness Narrative Images [...] requiring urgent evaluation. documented in this encounter [facility] 03-30-2024 History of Present illness Narrative Images [...] requiring urgent evaluation. documented in this encounter [facility] 03-30-2024 Instructions BONI [facility] - 03/30/2024 9:30 [...] soon as possible documented in this encounter [facility] 10-21-2023 History of Present illness Narrative [facility] Note 10/21/2023 9:04 AM Patient info: Lisbeth Sánchez is a 47 y.o. female Account No.: [id number] Acct: : 1975 PCP: JASON SCRUGGS DO [...] of the infraspinatus tendon. Intact biceps tendon. Ohnn-jn-nbvecigh acromioclavicular osteoarthritis. Moderate glenohumeral osteoarthritis with posterior [...] PA-C 10/22/23 09 documented in this encounter [facility] 10-09-2023 Miscellaneous Notes Please ask the following questions to the new patient that you are schedulin. IS THIS DUE TO AN ACCIDENT? - NO 2. IS THIS WORKER'S COMP? PLEASE VERIFY IF THIS IS WORKERS COMP AND DOCUMENT (We do not accept any new workers comp cases) - NO 3. WHAT INSURANCE? - [place] 4. HAVE YOU EVER BEEN SEEN BY A NEUROLOGIST BEFORE? IF YES, WHO AND WHEN? IS THIS A SECOND OPINION? - YES, DOES NOT REMEMBER 5. PATIENT IS SCHEDULED ON/WITH: - 10/20 AR 11AM WITH DEBI CLAYTON documented in this encounter [facility] 10-09-2023 Telephone encounter Note Please ask the following questions to the new patient that you are schedulin. IS THIS DUE TO AN ACCIDENT? - NO 2. IS THIS WORKER'S COMP? PLEASE VERIFY IF THIS IS WORKERS COMP AND DOCUMENT (We do not accept any new workers comp cases) - NO 3. WHAT INSURANCE? - [place] 4. HAVE YOU EVER BEEN SEEN BY A NEUROLOGIST BEFORE? IF YES, WHO AND WHEN? IS THIS A SECOND OPINION? - YES, DOES NOT REMEMBER 5. PATIENT IS SCHEDULED ON/WITH: - 10/20 AR 11AM WITH DEBI CLAYTON [facility] 07-03-2021 Evaluation note Encounter Date [...] Patient care instructions given in writting by [facility] Care At Home document. [employer] Other Evaluation note* Diagnosis Cervical radiculopathy- Primary Brachial neuritis or radiculitis nos Degenerative disc disease, cervical Rotator cuff tear arthropathy of right shoulder Cervical radiculopathy Brachial neuritis or radiculitis nos documented [facility]* Diagnosis Acute pain of right shoulder- Primary S/P arthroscopy of right shoulder documented in this encounter [facility]* Diagnosis S/P arthroscopy of right shoulder- Primary documented in this encounter [facility] Healthcare[facility] note* Diagnosis S/P arthroscopy of right shoulder- Primary Acute pain of right shoulder documented in this encounter [facility] Healthcare[facility] note* Diagnosis S/P arthroscopy of right shoulder- Primary documented in this encounter [facility] HealthcareHistory general Narrative - Reported* Type Description Date Medical History migraine headache Medical History back pain Medical History fibromyalgia Medical History raynauds syndrome [employer] Other InstructionsNot on filedocumented in this encounter [facility] SystemInstructionsNot on filedocumented in this encounter [facility] Summary Purpose Family History No Family History [...] of right shoulder Mayelin Portillo PA [address] [facility] [address] [place] [address] Referral ID Status Reason Start Date Expiration Date V isits Requested Visits Authorized [id number] Pending Review 03/30/2024 09/26/2024 1 1 Specialty Diagnoses / Procedures Referred By Oralia ford Referred To Contact Rehabilitation Diagnoses Cervical radiculopathy Debi Clayton PA-C [address] [facility] [place] [address] [facility] [address] [place] [phone] Referral ID Status Reason Start Date Expiration Date V isits Requested Visits Authorized [id number] Closed Specialty Services Required 10/21/2023 10/20/2024 1 [...] herniated disc Jason Scruggs DO [address] [place] [address] [facility] [address] [place] [address] Referral ID Status Reason Start Date Expiration Date Visits Requested Visits Authorized [id number] Pending Review Specialty Services Required 10/06/2023 10/05/2024 1 1 Reason Comments Pain INFORMATION SOURCE (unrecogn ized section and content) DATE CREATED AUTHOR 11/02/2022 [facility] DATE CREATED AUTHOR AUTHOR'S ORGANIZ ATION 12/10/2023 [facility] DATE CREATED AUTHOR AUTHOR'S ORGANIZ ATION 01/19/2024 [facility] DATE CREATED AUTHOR AUTHOR'S ORGANIZ ATION 06/23/2024 [facility] Special[facility] EPIC Care Teams (unrecognized sec tion and content) [employer] Relationship Specialty Start Date End Date Jason Scruggs DO [address] [place] [address] PCP - General Family Medicine 11/08/18 [employer] Specialty Start Date End Date Jason Scruggs DO [address] [place] [address] PCP - General Family Medicine 11/08/18 [employer] Relationship Specialty Start Date End Date Jason Scruggs MD [address] [place] [address] PCP - General Family Medicine 02/17/24 [employer] Relationship Specialty Start Date End Date Jason Scruggs MD [address] [place] [address] PCP - General Family Medicine 02/17/24 [employer] Relationship Specialty Start Date End Date Jason Scruggs MD [address] [place] [address] PCP - General Family Medicine 02/17/24 [employer] Relationship Specialty Start Date End Date Jason Scruggs MD [address] [place] [address] PCP - General Family Medicine 02/17/24 [employer] Relationship Specialty Start Date End Date Jason Scruggs MD [address] [place] [address] PCP - General Family Medicine 02/17/24 [employer] Relationship Specialty Start Date End Date Jason Scruggs MD [address] [place] [address] PCP - General Family Medicine 02/17/24 [employer] Relationship Specialty Start Date End Date Jason Scruggs MD [address] [place] [address] PCP - General Family Medicine 02/17/24 FOR [...] BE BASED ON THE PRIMARY CLINICAL RECORDS. [facility]. provides no warranty or guarantee of the accuracy or completeness of information in this document.
[2024-09-07 15:47] LABS: Alanine Aminotransferase 32 U/L (14-59); Albumin Globulin Ratio 1.1; Albumin Level 3.9 g/dL (3.4-5.0); Alkaline Phosphatase 100 U/L (46-116); Anion Gap 8.3; Aspartate Amino Transferase 17 U/L (15-37); BUN Creatinine Ratio 13.3; Bilirubin Total 0.4 mg/dL (0.2-1.0); Calcium 9.3 mg/dL (8.5-10.1); Carbon Dioxide 29.6 mmol/L (21.0-32.0); Chloride 105 mmol/L (98-107); Estimated GFR (African America >60 (>=60 mL/min/1.73m^2); Estimated GFR (Non-African Ame >60 (>=60 mL/min/1.73m^2); Free T3 2.53 pg/mL (2.18-3.98); Globulin 3.5 g/dL; Glucose 93 mg/dL (74-106); Potassium 3.9 mmol/L (3.5-5.1); Sodium 139 mmol/L (136-145); Thyroid Stimulating Hormone 1.535 uIU/mL (0.358-3.740); Total Protein 7.4 g/dL (6.4-8.2)
[2024-09-07 15:56] LABS: Free T4 0.85 ng/dL (0.76-1.46)
[2024-09-08 05:07] LABS: Vitamin B12 329 pg/mL (232-1245)
== END 2024-09-07 14:27 | disposition home or self-care (01) ==
LOC: LAB 14:28
PROVIDERS: PCP Family Medicine; Visit Provider Family Medicine
DX: Z00.01 Encounter for general adult medical examination with abnormal findings (principal); Z78.0 Asymptomatic menopausal state; N63.12 Unspecified lump in the right breast, upper inner quadrant
CPT/HCPCS: 36415; 76642; 77066; 77080; 80053; 82306; 82607; 82746; 83735; 84439; 84443; 84481; 85025; G0279